=== PATIENT | female | born 1975 | race Caucasian/White ===

== ENCOUNTER → 2016-05-28 | Outpatient (REF) | payer OTHER | LOC: M LAB REF 19:37 | PROVIDERS: ATTEND Physician Assistant | DX: J02.9 Acute pharyngitis, unspecified (principal) ==

== ENCOUNTER → 2016-06-02 | Outpatient (CLI) | payer OTHER ==
--- NOTE | 2016-06-02 09:20 | REPMRS ---
Patient History The patient states she had a clinical breast exam in 05/2016. No known family history of cancer. Digital Woman Screen Mammo: June 02, 2016 - Exam #: [id number] Bilateral CC and MLO view(s) were taken. Technologist: Tori Diehl, Technologist Prior study comparison: May 17, 2015, digital woman screen mammo performed at [facility]. FINDINGS: The breast tissue is heterogeneously dense. This may lower the sensitivity of mammography. There has been no change in the appearance of the mammogram from the prior studies. There is a moderate amount of residual fibroglandular tissue which is fairly symmetric. There is no interval development of dominant mass, architectural distortion, or clustered microcalcification typical of malignancy. There are scattered, small, benign calcifications of doubtful clinical significance. Scattered lymph nodes are seen in the axillae. No significant changes when compared with prior studies. ASSESSMENT: BI-RADS/ACR category 2 mammogram. Benign finding(s). Recommendation Routine screening mammogram in 1 year (for women over age 40). This mammogram was interpreted with the aid of an FDA-approved computer-aided dectection system. A. Negative x-ray reports should not delay biopsy if a dominant or clinically suspicious mass is present. B. Four to eight percent of cancers are not identified by mammography. C. Adenosis and dense breast may obscure an underlying neoplasm. Electronically Signed By: Delbert Correa MD 06/02/16 5505
== END ==
LOC: M WHC 08:22
PROVIDERS: ATTEND Nurse Practitioner Women's Health
DX: Z12.31 Encounter for screening mammogram for malignant neoplasm of breast (principal)

== ENCOUNTER → 2017-01-29 | Outpatient (REF) | payer OTHER | LOC: M LAB REF 16:24 | PROVIDERS: ATTEND Obstetrics & Gynecology | DX: R39.89 Other symptoms and signs involving the genitourinary system (principal) ==

== ENCOUNTER → 2017-05-05 | Outpatient (REF) | payer OTHER | LOC: M LAB REF 13:47 | DX: J11.1 Influenza due to unidentified influenza virus with other respiratory manifestations (principal) ==

== ENCOUNTER → 2017-06-03 | Outpatient (CLI) | payer OTHER | LOC: M WHC 08:55 | DX: Z12.31 Encounter for screening mammogram for malignant neoplasm of breast (principal) ==

== ENCOUNTER → 2018-05-30 | Outpatient (CLI) | payer OTHER ==
[2018-06-01 10:00] LABS: HEPATITIS B SURFACE ANTIGEN NEGATIVE (NEGATIVE); HEPATITIS C VIRUS ABY INDEX < 0.0 INDEX (<0.8); HIV 1&2 SCREEN CENTAUR NEGATIVE (NEGATIVE)
== END ==
LOC: M WUC 14:53
PROVIDERS: ATTEND Nurse Practitioner Women's Health
DX: Z11.3 Encounter for screening for infections with a predominantly sexual mode of transmission (principal)

== ENCOUNTER → 2018-06-06 | Outpatient (CLI) | payer OTHER ==
--- NOTE | 2018-06-07 08:18 | REPMRS ---
Patient History The patient states she had a clinical breast exam in 05/2018. No known family history of cancer. Digital Woman Screen Mammo: June 06, 2018 - Exam #: [id number] Bilateral CC and MLO view(s) were taken. Technologist: Radha Triaan Technologist Prior study comparison: June 03, 2017, digital woman screen mammo performed at [facility]. June 02, 2016, digital woman screen mammo performed at [facility]. May 17, 2015, digital woman screen mammo performed at [facility]. FINDINGS: The breast tissue is heterogeneously dense. This may lower the sensitivity of mammography. There is a moderate amount of heterogeneously dense fibroglandular tissue which is fairly symmetric. There is no interval development of dominant mass, architectural distortion, or clustered microcalcification typical of malignancy. There has been no change in the appearance of the mammogram from the prior studies. 3-D tomosynthesis shows no additional findings. Assessment: BI-RADS/ACR category 1 mammogram. Negative Mammogram. Recommendation Routine screening mammogram of both breasts in 1 year (for women over age 40). This patient's Lifetime Breast Cancer RIsk is estimated at 13.2 %. This mammogram was interpreted with the aid of an FDA-approved computer-aided dectection system. Electronically Signed By: Raad Olivares MD 06/07/18 0818
== END ==
LOC: M WHC 09:22
PROVIDERS: ATTEND Nurse Practitioner Women's Health
DX: Z12.31 Encounter for screening mammogram for malignant neoplasm of breast (principal)

== ENCOUNTER → 2019-06-03 | Outpatient (REF) | payer OTHER | LOC: M LAB 10:57 | PROVIDERS: ATTEND Physician Assistant Medical | DX: J02.0 Streptococcal pharyngitis (principal) ==

== ENCOUNTER → 2019-06-22 | Outpatient (REF) | payer OTHER ==
[2019-06-22 17:53] LABS: ALBUMIN 3.5 GM/DL (3.2-5.2); ALT/SGPT 23 U/L (12-78); BILIRUBIN,TOTAL 0.2 MG/DL (0.2-1.0); BLOOD UREA NITROGEN 16 MG/DL (7-18); CALCIUM LEVEL 8.7 MG/DL (8.5-10.1); CARBON DIOXIDE LEVEL 27 MEQ/L (21-32); CHLORIDE LEVEL 112 MEQ/L (98-107); CREATININE FOR GFR 0.77 MG/DL (0.55-1.30); GLOMERULAR FILTRATION RATE > 60.0 (>58); GLUCOSE, FASTING 91 MG/DL (70-100); SODIUM LEVEL 143 MEQ/L (136-145); THYROID STIMULATING HORMONE 0.853 uIU/ML (0.358-3.740); TOTAL PROTEIN 6.8 GM/DL (6.4-8.2)
[2019-06-22 17:54] LABS: LUTEINIZING HORMONE 13.1 mIU/mL
[2019-06-22 17:55] LABS: FOLLICLE STIMULATING HORMONE 14.1 mIU/mL
== END ==
LOC: M SFHCPLAZ 14:21
PROVIDERS: ATTEND Nurse Practitioner Adult Health
DX: Z00.00 Encounter for general adult medical examination without abnormal findings (principal); N95.1 Menopausal and female climacteric states

== ENCOUNTER → 2019-06-27 | Outpatient (CLI) | payer OTHER ==
--- NOTE | 2019-06-27 09:25 | REPMRS ---
Patient History The patient states she had a clinical breast exam in 2019. No known family history of cancer. 3D TOMOSYNTHESIS WAS PERFORMED. [facility] lifetime risk for breast cancer is 13.0%. Digital Woman Screen Mammo: June 27, 2019 - Exam #: [id number] Bilateral CC and MLO view(s) were taken. Technologist: Carola Lacy, Technologist Prior study comparison: June 06, 2018, bilateral digital woman screen mammo performed at [facility] [place]. June 03, 2017, digital woman screen mammo performed at [facility] [place]. FINDINGS: The breast tissue is heterogeneously dense. This may lower the sensitivity of mammography. There has been no change in the appearance of the mammogram from the prior studies. There is a moderate amount of residual fibroglandular tissue which is fairly symmetric. There is no interval development of dominant mass, areas of architectural distortion, or clustered microcalcification typical of malignancy. Assessment: BI-RADS/ACR category 1 mammogram. Negative Mammogram. Recommendation Routine screening mammogram in 1 year (for women over age 40). This mammogram was interpreted with the aid of an FDA-approved computer-aided dectection system. Electronically Signed By: Raz Tatum MD 06/27/19 0906
== END ==
LOC: M WHC 08:21
PROVIDERS: ATTEND Nurse Practitioner Women's Health
DX: Z12.31 Encounter for screening mammogram for malignant neoplasm of breast (principal)

== ENCOUNTER → 2020-01-11 | Outpatient (REF) | payer OTHER | LOC: M LAB REF 12:26 | PROVIDERS: ATTEND Physician Assistant | DX: J02.9 Acute pharyngitis, unspecified (principal) ==

== ENCOUNTER → 2020-02-19 | Outpatient (REF) | payer OTHER | LOC: M LAB REF 10:29 | PROVIDERS: ATTEND Physician Assistant Medical | DX: R05 Cough (principal); R50.9 Fever, unspecified ==

== ENCOUNTER → 2020-02-22 | Outpatient (REF) | payer OTHER ==
[2020-02-22 15:51] LABS: BASO # 0.1 10^3/uL (0.0-0.2); BASO % 0.8 % (0.0-1.0); EOS # 0.2 10^3/uL (0.0-0.5); EOS % 1.4 % (0.0-3.0); HEMATOCRIT 34.8 % (36.0-47.0); LYMPH # 2.3 10^3/uL (1.5-5.0); LYMPH % 18.5 % (24.0-44.0); MEAN CORPUSCULAR HEMOGLOBIN 29.8 pg (27.0-33.0); MEAN CORPUSCULAR HGB CONC 31.6 g/dl (32.0-36.5); MEAN CORPUSCULAR VOLUME 94.3 fl (80.0-96.0); MONO # 0.9 10^3/uL (0.0-0.8); MONO % 6.8 % (0.0-5.0); NEUTROPHILS # 8.6 10^3/uL (1.5-8.5); NEUTROPHILS % 68.8 % (36.0-66.0); PLATELET COUNT, AUTOMATED 340 10^3/uL (150-450); RED BLOOD COUNT 3.69 10^6/uL (4.00-5.40); WHITE BLOOD COUNT 12.5 10^3/uL (4.0-10.0)
[2020-02-22 15:54] LABS: ALBUMIN 2.8 GM/DL (3.2-5.2); ALT/SGPT 36 U/L (12-78); BILIRUBIN,TOTAL 0.3 MG/DL (0.2-1.0); BLOOD UREA NITROGEN 14 MG/DL (7-18); CALCIUM LEVEL 8.8 MG/DL (8.5-10.1); CARBON DIOXIDE LEVEL 25 MEQ/L (21-32); CHLORIDE LEVEL 110 MEQ/L (98-107); CREATININE FOR GFR 0.64 MG/DL (0.55-1.30); GLOMERULAR FILTRATION RATE > 60.0 (>58); GLUCOSE, FASTING 102 MG/DL (70-100); POTASSIUM SERUM 4.4 MEQ/L (3.5-5.1); SODIUM LEVEL 142 MEQ/L (136-145)
[2020-02-22 17:00] LABS: ERYTHROCYTE SEDIMENTATION RATE 65 mm/hr (0-20)
[2020-02-24 14:11] LABS: Lyme Disease IgG/IgM Antibodie <0.91 ISR (0.00-0.90); Lyme Disease IgM Ab Quantitati <0.80 index (0.00-0.79)
== END ==
LOC: M SFHCPLAZ 12:37
PROVIDERS: ATTEND Physician Assistant
DX: R50.9 Fever, unspecified (principal); R51.9 Headache, unspecified

== ENCOUNTER → 2020-03-06 | Outpatient (REF) | payer OTHER ==
[2020-03-06 13:39] LABS: BASO # 0.1 10^3/uL (0.0-0.2); BASO % 0.9 % (0.0-1.0); EOS # 0.3 10^3/uL (0.0-0.5); EOS % 5.9 % (0.0-3.0); HEMATOCRIT 40.3 % (36.0-47.0); HEMOGLOBIN 12.5 g/dl (12.0-15.5); LYMPH # 1.9 10^3/uL (1.5-5.0); LYMPH % 32.5 % (24.0-44.0); MEAN CORPUSCULAR HEMOGLOBIN 29.9 pg (27.0-33.0); MEAN CORPUSCULAR VOLUME 96.4 fl (80.0-96.0); MONO # 0.4 10^3/uL (0.0-0.8); MONO % 6.8 % (0.0-5.0); NEUTROPHILS # 3.1 10^3/uL (1.5-8.5); NEUTROPHILS % 53.4 % (36.0-66.0); PLATELET COUNT, AUTOMATED 450 10^3/uL (150-450); RED BLOOD COUNT 4.18 10^6/uL (4.00-5.40); WHITE BLOOD COUNT 5.7 10^3/uL (4.0-10.0)
[2020-03-06 13:52] LABS: APPEARANCE, URINE CLEAR (CLEAR); BACTERIA, URINE AUTO NEGATIVE (NEGATIVE); BILIRUBIN, URINE AUTO NEGATIVE (NEGATIVE); BLOOD, URINE BLOOD NEGATIVE (NEGATIVE); COLOR, URINE YELLOW (YELLOW); GLUCOSE, URINE (UA) AUTO NEGATIVE (NEGATIVE); KETONE, URINE AUTO NEGATIVE (NEGATIVE); LEUKOCYTE ESTERASE, URINE AUTO NEGATIVE (NEGATIVE); MUCUS, URINE SMALL (NEGATIVE); NITRITE, URINE AUTO NEGATIVE (NEGATIVE); PROTEIN, URINE AUTO NEGATIVE (NEGATIVE); RBC, URINE AUTO 1 /HPF (0-3); SPECIFIC GRAVITY URINE AUTO 1.013 (1.002-1.035); SQUAMOUS EPITHELIAL CELL UR AU 2 /HPF (0-6); UROBILINOGEN, URINE AUTO 0.2 mg/dL (0.0-2.0); WBC, URINE AUTO 0 /HPF (0-3)
[2020-03-06 14:06] LABS: ERYTHROCYTE SEDIMENTATION RATE 7 mm/hr (0-20)
[2020-03-06 14:12] LABS: ALBUMIN 3.5 GM/DL (3.2-5.2); ALT/SGPT 15 U/L (12-78); BILIRUBIN,TOTAL 0.4 MG/DL (0.2-1.0); BLOOD UREA NITROGEN 18 MG/DL (7-18); CARBON DIOXIDE LEVEL 27 MEQ/L (21-32); CHLORIDE LEVEL 110 MEQ/L (98-107); CREATININE FOR GFR 0.84 MG/DL (0.55-1.30); GLOMERULAR FILTRATION RATE > 60.0 (>58); GLUCOSE, FASTING 90 MG/DL (70-100); POTASSIUM SERUM 4.9 MEQ/L (3.5-5.1); SODIUM LEVEL 140 MEQ/L (136-145)
== END ==
LOC: M SFHCPLAZ 09:57
PROVIDERS: ATTEND Physician Assistant
DX: R89.9 Unspecified abnormal finding in specimens from other organs, systems and tissues (principal); N30.01 Acute cystitis with hematuria

== ENCOUNTER → 2020-03-06 | Outpatient (CLI) | payer OTHER ==
--- NOTE | 2020-03-06 10:23 | REPPI ---
INDICATION: M54.5 ACUTE BILATERL LOW BACK PAIN WITHOUT SCIATICA COMPARISON: None. TECHNIQUE: AP, lateral, bilateral oblique, and coned-down views of the lumbar spine. FINDINGS: Alignment and lordosis maintained. Vertebral bodies are intact. Disc spaces are relatively normal/age-appropriate. No acute fracture/compression injury or subluxation. No obvious spondylolysis or spondylolisthesis. IMPRESSION: Essentially age-appropriate lumbosacral spine radiographs. <Electronically signed by Ziggy Medrano > 03/06/20 9772
== END ==
LOC: M PLAIMG 09:55
PROVIDERS: ATTEND Physician Assistant
DX: M54.5 Low back pain (principal)

== ENCOUNTER → 2020-04-16 | Outpatient (REF) | payer OTHER | LOC: M SFHCPLAZ 17:00 | PROVIDERS: ATTEND Physician Assistant | DX: J34.89 Other specified disorders of nose and nasal sinuses (principal); Z20.822 Contact with and (suspected) exposure to COVID-19 ==

== ENCOUNTER → 2020-06-27 | Outpatient (CLI) | payer OTHER | LOC: M WHC 07:53 | PROVIDERS: ATTEND Obstetrics & Gynecology | DX: Z12.31 Encounter for screening mammogram for malignant neoplasm of breast (principal); Z53.9 Procedure and treatment not carried out, unspecified reason ==

== ENCOUNTER → 2020-09-20 | Outpatient (CLI) | payer OTHER ==
--- NOTE | 2020-09-20 08:48 | REPMRS ---
Patient History The patient states she had a clinical breast exam in May 2020. No known family history of cancer. 35 LB. unintentional weight gain. Pfizer vaccine 06/19/20 left arm 07/10/20 left arm. Pt denied . Patient states no breast complaints today. Patient has signed MRS History Sheet. Digital Woman Screen Mammo: September 20, 2020 - Exam #: [id number] Bilateral CC and MLO view(s) were taken. Technologist: RT Dorys Prior study comparison: June 27, 2019, bilateral digital woman screen mammo performed at [facility]. June 06, 2018, bilateral digital woman screen mammo performed at [facility]. FINDINGS: There are scattered fibroglandular densities. Screening. Digital screening (2D) mammography was performed bilaterally in the CC and MLO projections. Additionally, breast tomosynthesis (3D mammography) was performed bilaterally in the CC and MLO projections. Todays exam was compared to the prior exam/exams. By history, the patient has no complaints of a palpable breast abnormality or other significant breast complaints. The breasts are unchanged in size and shape. There are no allegra-soft tissue densities or spiculated masses. There is no internal architectural distortion. Once again, stable benign appearing calcifications are seen.There are no suspicious allegra-calcific clusters. Skin thickening or nipple retraction is not present. IMPRESSION: BI-RADS Category 2- Benign Findings. There is no evidence of malignant alteration of the breasts. Followup examination recommended in one year. The Volpara volumetric breast density category is B, there are scattered areas of fibroglandular density. This mammogram was read with the assistance of [facility] [employer],an FDA approved computer aided detection system for mammography. The lifetime Tyrer-Cuzick score is 12.9 % Negative x-ray reports should not delay surgical consultation if a dominant or clinically suspicious mass is present. Not all breast cancers can be identified by mammography. Therefore, we recommend that you continue to perform regular breast self-examination and physical examination and then promptly contact your physician of any concerns or changes. Adenosis and dense breasts may obscure an underlying neoplasm. Assessment: BI-RADS/ACR category 2 mammogram. Benign Findings. Recommendation Routine screening mammogram of both breasts in 1 year. Electronically Signed By: Raul Sepulveda 09/20/20 0899
== END ==
LOC: M WHC 06:59
PROVIDERS: ATTEND Obstetrics & Gynecology
DX: Z12.31 Encounter for screening mammogram for malignant neoplasm of breast (principal); R92.1 Mammographic calcification found on diagnostic imaging of breast

== ENCOUNTER → 2021-01-11 | Outpatient (CLI) | payer OTHER ==
[~2021-01-11] MED LIST: ASPI81TA26 PO; CYCL-707 PO; D31000TA2 PO; LEXA1TAB PO; MAXA10TA14 PO; NORT10CA2 PO
== END ==
LOC: M LABSMTC 09:29
PROVIDERS: ATTEND Anesthesiology
DX: Z20.822 Contact with and (suspected) exposure to COVID-19 (principal)

== ENCOUNTER 2021-01-16 10:16 | Day surgery (SDC) | payer OTHER ==
[~2021-01-16] VITALS: Ht 162.6 cm; Wt 94.8 kg
[~2021-01-16 10:16] MED LIST changes: +NS 1,000 ML IV ONE
[2021-01-16] MEDS ORDERED: propofoL 200 MG/20 ML VIAL As Ordered ONE (11:44)
[2021-01-16] MEDS ORDERED: LIDOCAINE 2% MDV 20ML VIAL As Ordered ONE (11:44)
--- NOTE | 2021-01-16 13:11 | ROOR ---
Patient Name: Caroline Amezcua Procedure Date: 01/16/2021 12:35 PM Date of : 1975 Age: 45 Room: [facility] Gender: Female Note Status: Finalized Procedure: Colonoscopy Indications: Screening in patient at increased risk: Family history of 1st-degree relative with colorectal cancer before age 60 years Providers: Jayden Segal MD Referring MD: Beata Jones NP Requesting Provider: Medicines: Monitored Anesthesia Care Complications: No immediate complications. Procedure: Pre-Anesthesia Assessment: - Prior to the procedure, a History and Physical was performed, and patient medications and allergies were reviewed. The patient is competent. The risks and benefits of the procedure and the sedation options and risks were discussed with the patient. All questions were answered and informed consent was obtained. Patient identification and proposed procedure were verified by the physician, the nurse and the anesthesiologist in the procedure room. Mental Status Examination: alert and oriented. Airway Examination: normal oropharyngeal airway and neck mobility. Respiratory Examination: clear to auscultation. CV Examination: normal. Prophylactic Antibiotics: The patient does not require prophylactic antibiotics. Prior Anticoagulants: The patient has taken no previous anticoagulant or antiplatelet agents. ASA Grade Assessment: II - A patient with mild systemic disease. After reviewing the risks and benefits, the patient was deemed in satisfactory condition to undergo the procedure. The anesthesia plan was to use monitored anesthesia care (MAC). Immediately prior to administration of medications, the patient was re-assessed for adequacy to receive sedatives. The heart rate, respiratory rate, oxygen saturations, blood pressure, adequacy of pulmonary ventilation, and response to care were monitored throughout the procedure. The physical status of the patient was re-assessed after the procedure. The Colonoscope was introduced through the anus and advanced to the cecum, identified by appendiceal orifice and ileocecal valve. The colonoscopy was performed without difficulty. The patient tolerated the procedure well. The quality of the bowel preparation was poor and not adequate to identify polyps 6 mm and larger in size. The ileocecal valve, appendiceal orifice, and rectum were photographed. Scope insertion time was 2 minutes. Scope withdrawal time was 10 minutes. The total duration of the procedure was 12 minutes. Findings: The perianal and digital rectal examinations were normal. A 10 mm polyp was found in the rectum. The polyp was sessile. The polyp was removed with a hot biopsy forceps. The polyp was removed with a cold snare. Resection and retrieval were complete. Verification of patient identification for the specimen was done by the physician and nurse using the patient's name, date and medical record number. Estimated blood loss was minimal. A large amount of semi-liquid semi-solid stool was found from sigmoid to cecum, interfering with visualization. Lavage of the area was performed using a large amount of sterile water, resulting in incomplete clearance with continued poor visualization. Non-bleeding external and internal hemorrhoids were found during retroflexion. The hemorrhoids were medium-sized. Impression: - Preparation of the colon was poor. - Preparation of the colon was inadequate. - One 10 mm polyp in the rectum, removed with a hot biopsy forceps and removed with a cold snare. Resected and retrieved. - Stool from sigmoid to cecum. - Non-bleeding external and internal hemorrhoids. Recommendation: - Patient has a contact number available for emergencies. The signs and symptoms of potential delayed complications were discussed with the patient. Return to normal activities tomorrow. Written discharge instructions were provided to the patient. - High fiber diet. - Continue present medications. - Await pathology results. - Repeat colonoscopy at next available appointment (within 3 months) because the bowel preparation was poor and for surveillance based on pathology results. - Telephone GI clinic to schedule appointment in [facility] (address: [address] [place] [address], 1st floor, [place], [place],[address]) in 4 -- 6 weeks. Please call GI clinic @ [phone] for apppointment date and time. - Miralax 1 capful (17 grams) in 8 ounces of water PO daily for atleast 7 days and then adjust dose to have one to two soft bowel movements daily. - Return to primary care physician. Procedure Code(s): --- Professional --- 54307, Colonoscopy, flexible; with removal of tumor(s), polyp(s), or other lesion(s) by snare technique Diagnosis Code(s): --- Professional --- Z80.0, Family history of malignant neoplasm of digestive organs K64.8, Other hemorrhoids K62.1, Rectal polyp CPT copyright 2019 [employer]. All rights reserved. The codes documented in this report are preliminary and upon roof cement and paint maker review may be revised to meet current compliance requirements. Jayden Segal MD Jayden Segal MD 01/16/2021 1:11:09 PM Electronically signed by Jayden Segal MD Number of Addenda: 0 Note Initiated On: 01/16/2021 12:35 PM Estimated Blood Loss: Estimated blood loss was minimal.
[2021-01-16 13:25] VITALS: BP 127/72
== END 2021-01-16 13:36 | disposition home or self-care (01) ==
LOC: M OPP 10:16
PROVIDERS: ATTEND Internal Medicine Gastroenterology
DX: Z12.11 Encounter for screening for malignant neoplasm of colon (principal); Z86.010 Personal history of colon polyps; Z80.0 Family history of malignant neoplasm of digestive organs; D12.8 Benign neoplasm of rectum; K64.8 Other hemorrhoids; Z79.82 Long term (current) use of aspirin; Z79.899 Other long term (current) drug therapy; Z88.8 Allergy status to other drugs, medicaments and biological substances; Z86.718 Personal history of other venous thrombosis and embolism

== ENCOUNTER 2021-02-21 11:32 | Emergency (ER) | payer OTHER ==
[~2021-02-21] VITALS: Ht 162.6 cm; Wt 98.8 kg
[~2021-02-21 11:32] MED LIST changes: -NS 1,000 ML IV ONE
--- OUTSIDE RECORDS SUMMARY | 2021-02-21 11:40 | CCD | Continuity of Care Document ---
Author Author Caroline FL[facility]ES [facility] Organization Unknown Address [address] [place] [address], [address] [place] [address] Phone [phone] Care Team Providers Care Political Analyst Name Role Phone Beata Jones R.N. AUTM [phone] AUTM Unavailable Singh Ty M.D. AUTM [phone] Problems Active Problems Provider Date Allergic asthma without status asthmaticus Singh Ty MD Onset: 01/21/2021 Left temporomandibular joint disorder Singh Ty MD On set: 01/22/2021 Social History Type Date Description Comments Sex Unknown ETOH Use 4 A Week Tobacco Use Start: Unknown Patient has never smoked Recreational Drug Use Never Used Drugs Allergies and adverse reactions Active Allergies Criticality Reaction | Severity Comments Date Naprosyn Unable to assess criticality 11/29/2020 Medications Active Medications SIG Qnty Indications Ordering Provide r Date Miralax 17GM/Scoop Powder use as instructed by doctor for bowel prep 510gm Z12.11 Singh Gates MD 02/14/[address] take 4 tabs by mouth prior to procedure per instructions. 4tabs Z12.11 Singh Gates MD 02/14/2021 Vitamin D 50mcg (2000 Ut) Tablets 1 by mouth every day Unknown Nortriptyline HCL 10mg Capsules 1 by mouth every other day Unknown Lexapro 10mg Tablets 1 by mouth every day Unknown Aspirin Ec Low Dose 81mg Tablets D R 1 by mouth every day Unknown Cyclobenzaprine HCL 10mg Tablets 1 by mouth every other day 30tabs Unknown Maxalt 10mg Tablets prn Unknown Miralax 17GM/Scoop Powder take 17 grams by mouth once daily. Unknown History Medications Sutab [id number] Tablets take tablets as directed per doctor for bowel prep. 1kit Z12.11 Singh myrick MD 12/03/2020 - 12/23/[address] take 4 tabs by mouth prior to procedure per instructions. 4tabs Z12.11 Singh Gates MD 12/03/2020 - 12/23/2020 Immunizations Description No Information Available Vital Signs Date Vital Result Comment 02/14/2021 12:41pm BP Systolic 140 mmHg BP Diastolic 84 mmHg Height 64 inches 5'4" Weight 215.00 lb BMI (Body Mass Index) 36.9 kg/m2 [place] Body Weight 120 lb Weight 97.524 kg BSA (Body Surface Area) 2.02 m2 01/22/2021 2:50pm BP Systolic 122 mmHg BP Diastolic 70 mmHg Heart Rate 82 /min O2 % BldC Oximetry 98 % Height 64 inches 5'4" Weight 214.00 lb BMI (Body Mass Index) 36.7 kg/m2 [place] Body Weight 120 lb Weight 97.070 kg BSA (Body Surface Area) 2.01 m2 Results Test Acquired Date Facility Test Result H/L Range Note Laboratory test finding 01/16/2021 [facility] [address] [place], [place] [id number] [phone] Pathology Request For Service (SEE NOTE) 1 1 FINAL DIAGNOSIS Rectal polyp, polypectomy: Tubular adenoma. 01/17/2021 - 1458 CLINICAL DIAGNOSIS Screening colonoscopy, family history of colon cancer 01/16/2021 - 154 GROSS DIAGNOSIS Received in formalin labeled "rectal polyp" consists of one malagon fragment measuring 0.4 x 0.3 x 0.2 cm. All in one. -SV 01/16/2021 - 154 Signed YUAN DE JESUS MD 01/17/2021 1525 Procedures Date Code Description Status 01/22/2021 24394 Office/Outpatient New Moderate M DM 45-59 Minutes Completed Medical Devices Description No Information Available Encounters Description No Information Available Assessments Date Code Description Provider 02/14/2021 Z12.11 Encounter for screening for patience gnant neoplasm of colon Jennifer FloresJOSE FC 02/14/2021 Z86.010 Personal history of colonic poly ps Jennifer FloresJOSE FC 02/14/2021 Z80.0 Family history of malignant neop lasm of digestive organs Jennifer FloresJOSE FC 01/22/2021 M26.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, unspecified Singh Ty MD 12/03/2020 Z12.11 Encounter for screening for patience gnant neoplasm of colon Jennifer FloresLAKEISHA 12/03/2020 Z80.0 Family history of malignant neop lasm of digestive organs Jennifer FloresLAKEISHA Plan of Treatment 02/14/2021 - Jennifer FloresLAKEISHA* Z12.11 Encounter for screening for malignant neoplasm of colon * Z86.010 Personal history of colonic polyps * Z80.0 Family history of malignant neoplasm of digestive organs * * New Medication:* Miralax 17 GM/Scoop * Dulcolax 5 mg * New Orders:* Colonoscopy, Ordered: 02/14/21 * Comments:* Will arrange for colonoscopy. Reviewed risks and benefits of the procedure, as well as other options, with the patient. Bowel prep procedure was discussed with patient, as well as risks and side effects associated with the bowel prep. Patient will complete the Miralax 2.0 bowel prep. Patient verbalized understanding of all of the above and is in agreement to proceed. Patient will seek medical attention for any acute changes. Will monitor. * Follow up:* As scheduled, sooner if needed. Functional Status Description No Information Available Mental Status Description No Information Available Referrals Refer to Reason for Referral Status Appt Date [facility] Rehab TMJ therapy Sent PT/OT/Rehab [address] [place], [place] [id number] [phone] Singh Ty M.D. left ear pain and TMJ inflammation Close d 01/22/2021 [address] [facility] [address] [place] [address] [phone] Jayden Segal M.D. COLO SCREEN, FAMILY HX OF COLO CA S cheduled 12/24/2020 [facility] [address] [facility], [address] [place] [address] [phone]
--- OUTSIDE RECORDS SUMMARY | 2021-02-21 11:41 | CCD | Continuity of Care Document ---
Author Author Caroline TY MD Organization Unknown Address [address] [facility], [address] [place] [address] Phone [phone] Care Team Providers Care Compounding And Finishing Supervisor Name Role Phone Beata Jones R.N. AUTM [phone] AUTM Unavailable Singh Ty M.D. AUTM [phone] Problems Active Problems Provider Date Allergic asthma [...] SIG Qnty Indications Ordering Provide r Date Vitamin D 50mcg (1999 Ut) Tablets 1 by mouth every day Unknown Nortriptyline HCL 10mg Capsules 1 by mouth every other day Unknown Lexapro 10mg Tablets 1 by mouth every day Unknown Aspirin Ec Low Dose 81mg Tablets D R 1 by mouth every day Unknown Cyclobenzaprine HCL 10mg Tablets 1 by mouth every day 30tabs Unknown Maxalt 10mg Tablets prn Unknown History Medications Sutab [id number] Tablets take tablets as directed per doctor for bowel prep. 1kit Z12.11 Singh myrick MD 12/03/2020 - 12/23/[address] take 4 tabs by mouth prior to procedure per instructions. 4tabs Z12.11 Singh Gates MD 12/03/2020 - 12/23/2020 Immunizations Description No Information Available Vital Signs Date Vital Result Comment 01/22/2021 2:50pm BP Systolic 122 mmHg BP Diastolic 70 mmHg Heart Rate 82 /min O2 % BldC Oximetry 98 % Height 64 inches 5'4" Weight 214.00 lb BMI (Body Mass Index) 36.7 kg/m2 [place] Body Weight 120 lb Weight 97.070 kg BSA (Body Surface Area) 2.01 m2 12/03/2020 11:22am BP Systolic 124 mmHg BP Diastolic 84 mmHg Height 64 inches 5'4" Weight 202.00 lb BMI (Body Mass Index) 34.7 kg/m2 [place] Body Weight 120 lb Weight 91.627 kg BSA (Body Surface Area) 1.96 m2 Results Test Acquired Date Facility Test Result H/L Range Note Laboratory test finding 01/16/2021 [facility] [address] [place], [place] [address] [phone] Pathology Request For Service (SEE NOTE) 1 1 FINAL DIAGNOSIS Rectal polyp, polypectomy: Tubular adenoma. 01/17/2021 - 1458 CLINICAL DIAGNOSIS Screening colonoscopy, family history of colon cancer 01/16/2021 - 1540 GROSS DIAGNOSIS Received in formalin labeled "rectal polyp" consists of one malagon fragment measuring 0.4 x 0.3 x 0.2 cm. All in one. -SV 01/16/2021 - 1540 Signed YUAN DE JESUS MD 01/17/2021 1525 Procedures Date Code Description Status 01/22/2021 10430 Office/Outpatient New Moderate M DM 45-59 Minutes Completed Medical Devices Description No Information Available Encounters Type Date Location Provider Dx Diagnosis Office Visit 01/22/2021 2:45p [facility] Ruben Olivier M26.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, unspecified Assessments Date Code Description Provider 01/22/2021 M26.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, unspecified Singh Ty MD 12/03/2020 Z12.11 Encounter for screening for patience gnant neoplasm of colon Jennifer Brooks, RPA-C 12/03/2020 Z80.0 Family history of malignant neop lasm of digestive organs LAKEISHA Ortiz Plan of Treatment Future Appointment(s):* 02/11/2021 3:30 pm - LAKEISHA Ortiz at [facility] Functional Status Description No Information Available Mental Status Description No Information Available Referrals Refer to Reason for Referral Status Appt Date [facility] Rehab TMJ therapy Created PT/OT/Rehab [address] [place] [address] [phone] Singh Ty M.D. left ear pain and TMJ inflammation Sched uled 01/22/[address] [facility] [address] [place] [address] [phone] Jayden Segal M.D. COLO SCREEN, FAMILY HX OF COLO CA S cheduled 12/24/2020 [facility] [address] [facility] [address] [place] [address] [phone]
--- OUTSIDE RECORDS SUMMARY | 2021-02-21 11:41 | CCD | Continuity of Care Document ---
Author Author Caroline TY MD Organization Unknown Address [address] [facility], [address] [place] [address] Phone [phone] Care Team Providers Care Animated Cartoons Painter Name Role Phone Beata Jones R.N. AUTM [phone] AUTM Unavailable Singh Ty M.D. AUTM [phone] Problems Active Problems Provider Date Allergic asthma [...] 10mg Tablets prn Unknown History Medications Sutab [phone] Tablets take tablets as directed per doctor [...] lb BMI (Body Mass Index) 36.7 kg/m2 [place] Body Weight 120 lb Weight 97.070 kg BSA (Body Surface Area) 2.01 m2 12/03/2020 11:22am BP Systolic 124 mmHg BP Diastolic 84 mmHg Height 64 inches 5'4" Weight 202.00 lb BMI (Body Mass Index) 34.7 kg/m2 [place] Body Weight 120 lb Weight 91.627 kg BSA (Body Surface Area) 1.96 m2 Results Test Acquired Date Facility Test Result H/L Range Note Laboratory test finding 01/16/2021 [facility] Main Lab [address] [place], [place] [address] [phone] Pathology Request For Service (SEE NOTE) 1 [...] 1525 Procedures Date Code Description Status 01/22/2021 63281 Office/Outpatient New Moderate M DM 45-59 Minutes Completed Medical Devices Description No Information Available Encounters Type Date Location Provider Dx Diagnosis Office Visit 01/22/2021 2:45p [facility] Ruben Olivier M26.602 Left temporomandibular [...] 02/11/2021 3:30 pm - LAKEISHA Ortiz at [facility] Functional Status Description No Information Available Mental Status Description No Information Available Referrals Refer to Reason for Referral Status Appt Date [facility] Rehab TMJ therapy Created PT/OT/Rehab [address] [place] [address] [phone] Singh Ty M.D. left ear pain and TMJ inflammation Sched uled 01/22/2021 [address] [facility] [address] [place] [address] [phone] Jayden Segal M.D. COLO SCREEN, FAMILY HX OF COLO CA S cheduled 12/24/2020 [facility] [address] [facility], [facility] [address] [place] [address] [phone]
--- OUTSIDE RECORDS SUMMARY | 2021-02-21 11:41 | CCD ---
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 A ctive confirmed 2714878 Problem Hx of migraine headaches Z86.69 Active confirmed 156857341 Problem Uncomplicated asthma, unspecified asthma severity J45.909 Active confirmed 767804299 Problem Perimenopause N95.1 Active confirmed 533649 159787347 Problem BMI 29.0-29.9,adult Z68.29 Active confirmed 443009970 Problem Anxiety F41.9 Active confirmed 40728266 Problem History of DVT (deep vein thrombosis) Z86.718 Ac tive confirmed 155126873 Problem Sciatica of left side M54.32 Active confirmed 54386355 Problem BMI 35.0-35.9,adult Z68.35 Active confirmed 835319285 Problem Anxiety disorder, unspecified F41.9 Active confirm ed 206483073 Problem Abnormal laboratory test R89.9 Active confirmed 569159946 Problem Abnormal laboratory test result R89.9 Active confi rmed 750469837 Problem Depression, unspecified depression type F32.9 Active confirmed 79615446 ALLERGIES Allergen (clinical drug ingredient) Drug/Non Drug Allergy do cumented on EMR Reaction Allergy Type Onset Date Status naproxen Naprosyn([facility] Code:[address]-73) itchy, red blisters Drug Allergy Active ENCOUNTERS from 1974 to 2021-02-06 Encounter Location Date Provider Diagnosis [facility] Cory [address] [facility] [phone] [place] [address] Jan, Beata Jones Sciatica of left side M54.32 IMMUNIZATIONS Vaccine Route Administration Date Status Pfizer #2 dose COVID-19 (given elsewhere) SARSCOV2 VAC 30MCG /0.3ML IM Unknown July 10, 2020 Administered Pfizer #1 dose COVID-19 (given elsewhere) SARSCOV2 VAC 30MCG /0.3ML IM Unknown June 19, 2020 Administered SOCIAL HISTORY Tobacco Use: Social History Observation Description Date Details (start date - stop date) Former Smoker Sex Assigned At : Social History Observation Description Sex Assigned At Unknown Education: Question Answer Notes Level of Education: Finished 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 2003 Does the patient divulge that the partner hit them? No Does the patient divulge that the partner hits the chi ldren in the household? No Does the patient consider the partner abusive? No Has the patient ever been in a situation involving domestic violence? No Has the patietn ever been injured, homeb ound, or hospitalized due to an altercation with significant other? No Sexual Hx: Question Answer Notes Had sex in the last 12 months (vaginal, oral, or anal)? Yes LMP: ablation Have you ever had an STD? No with Men only Use protection? No Drug and Alcohol Question Answer Notes Total Score: 0 Interpretation: No problems reported Alcohol Screening: Question Answer Notes Points 0 Interpretation Negative Tobacco Use: Question Answer Notes Are you a: former smoker only smoked for 18 m [facility] How long has it been since you last smoked? > 10 years REASON FOR REFERRAL No Information VITAL SIGNS No information MEDICATIONS Medication SIG (Take, Route, Frequency, Duration) Notes Start Da te End Date Status Nortriptyline HCl 10 MG 1 capsule Orally every other day Active Vitamin D-3 1000 UNIT 2 capsules Orally Once a day Active Aspir-81 81 MG 1 1/2 tablet Orally Once a day Active Cyclobenzaprine HCl 10 MG 1 tablet Orally Q8 prn for 30 days Active Diflucan 150 MG 1 tablet Orallyas directed 1 today and 1 in 10 days for 2 days Dec, Active Ciprofloxacin-Dexamethasone 0.3-0.1 % 4 drops into lef t ear Otic Twice a day for 7 day(s) Dec, Active Ibuprofen 800 MG 1 tablet with food or milk a s needed Orally Three times a day for 10 day(s) Jan, Active Topiramate ER 200 MG 1 capsule Orally Once a day Active Lexapro 10 MG 1 tablet Orally Once a day for 90 days Active predniSONE 10 MG 3 tablets Orally Once a day for 5 day(s) Dec, Active Amoxicillin 250 MG 1 cap Orally four times daily for 10 days Dec, Active PROCEDURES No Information RESULTS No Results REASON FOR VISIT refill MEDICAL (GENERAL) HISTORY Type Description Date Medical History vitamin d deficiency Medical History DVT-Left leg 11/01/11 Medical History Single mutation [id number] Factor V Leiden ( increases risk of DVT 4- 8 fold) while on oral contraceptives Medical History asthma PFT's 07/02/05 Medical History Chronic tension and migraine headache Medical History Legally blind, congential ca taracts,cataract surgery young age, history of macular dystrophy of the eyes with lens implanted Medical History echocardiogram 12/05/08-[facility] Center-trace mitral valve insuffiency, LVEF 60-65 % Surgical History 2007 Surgical History laproscopy 2009 Surgical History ablasion 2012 Surgical History diagnostic hysteroscopy 2008 Surgical History YAG laser 1992 & 1994 Surgical History D & C hysteroscopy,NovaSure ablation 201 5 Hospitalization History vaginal delivery baby boy 02/01/2005 Hospitalization History delivery baby boy 11/16/19 08 Goals Section No Information Health Concerns No Information MEDICAL EQUIPMENT No Information MENTAL STATUS No Information FUNCTIONAL STATUS No Information ASSESSMENTS Encounter Date Diagnosis Assessment Notes Treatment Notes Treatm ent Clinical Notes Jan, Sciatica of left side (ICD-10 - M54.32) PLAN OF TREATMENT Medication Medication Name Sig Start Date Stop Date Cyclobenzaprine HCl 10 MG 1 tablet Orally Q8 prn for 30 days Next Appt Details Provider Name:Beata Jones, 08:00:00 AM, [address] [facility], , [place], [address], Insurance Providers Payer Name Payer Address Payer Phone Insured Name Patient Relati onship to Insured Coverage Start Date Coverage End Date [facility] [address] [address] [facility] [phone] RUMA AMEZCUA self
--- OUTSIDE RECORDS SUMMARY | 2021-02-21 11:41 | CCD ---
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 A ctive confirmed 7566170 Problem Hx of migraine headaches Z86.69 Active confirmed 159727243 Problem Uncomplicated asthma, unspecified asthma severity J45.909 Active confirmed 168806350 Problem Perimenopause N95.1 Active confirmed 812541 728592754 Problem BMI 29.0-29.9,adult Z68.29 Active confirmed 034535159 Problem Anxiety F41.9 Active confirmed 55262016 Problem History of DVT (deep vein thrombosis) Z86.718 Ac tive confirmed 315443290 Problem Sciatica of left side M54.32 Active confirmed 98321002 Problem BMI 35.0-35.9,adult Z68.35 Active confirmed 355361932 Problem Anxiety disorder, unspecified F41.9 Active confirm ed 549321384 Problem Abnormal laboratory test R89.9 Active confirmed 951686489 Problem Abnormal laboratory test result R89.9 Active confi rmed 223573479 Problem Depression, unspecified depression type F32.9 Active confirmed 78568603 ALLERGIES Allergen (clinical drug ingredient) Drug/Non Drug Allergy do cumented on EMR Reaction Allergy Type Onset Date Status naproxen Naprosyn([facility] Code:[address]-40) itchy, red blisters Drug Allergy Active ENCOUNTERS from 1974 to 2020-12-24 Encounter Location Date Provider Diagnosis [facility] Cory [address] [facility] [phone] [place] [address] Dec, Beata Jones IMMUNIZATIONS Vaccine Route Administration Date Status Pfizer #2 dose COVID-19(given elsewhere) SARSCOV2 VAC 30MCG/ 0.3ML IM Unknown July 10, 2020 Administered Pfizer #1 dose COVID-19(given elsewhere) SARSCOV2 VAC 30MCG/ 0.3ML IM Unknown June 19, 2020 Administered SOCIAL HISTORY Tobacco Use: Social History Observation Description Date Details (start date - stop date) Former Smoker Sex Assigned At : Social History Observation Description Sex Assigned At Unknown Education: Question Answer Notes Level of Education: Finished 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 > 10 years REASON FOR REFERRAL No Information VITAL SIGNS No information MEDICATIONS Medication SIG (Take, Route, Frequency, Duration) Notes Start Da te End Date Status Vitamin D-3 1000 UNIT 2 capsules Orally Once a day Active Lexapro 10 MG 1 tablet Orally Once a day for 90 days Active Ciprofloxacin-Dexamethasone 0.3-0.1 % 4 drops into lef t ear Otic Twice a day for 7 day(s) Dec, Active Amoxicillin 250 MG 1 cap Orally four times daily for 10 days Dec, Active Diflucan 150 MG 1 tablet Orallyas directed 1 today and 1 in 10 days for 2 days Dec, Active Cyclobenzaprine HCl 10 MG 1 tablet Orally Q8 prn for 30 days Active Topiramate ER 200 MG 1 capsule Orally Once a day Active Aspir-81 81 MG 1 1/2 tablet Orally Once a day Active Ibuprofen 800 MG 1 tablet with food or milk a s needed Orally Three times a day for 10 day(s) Jan, Active Nortriptyline HCl 10 MG 1 capsule Orally every other day Active PROCEDURES No Information RESULTS No Results REASON FOR VISIT clarification on script MEDICAL (GENERAL) HISTORY Type Description Date Medical [...] eyes with lens implanted Medical History echocardiogram 12/05/08-[facility]-trace mitral valve insuffiency, LVEF 60-65 [...] No Information FUNCTIONAL STATUS No Information ASSESSMENTS No Information PLAN OF TREATMENT Medication Medication Name Sig Start Date Stop Date Diflucan 150 MG 1 tablet Orallyas directed 1 today and 1 in 10 days for 2 days Dec, Topiramate ER 200 MG 1 capsule Orally Once a day Nortriptyline HCl 10 MG 1 capsule Orally every other day Amoxicillin 250 MG 1 cap Orally four times daily for 10 days Dec, Lexapro 10 MG 1 tablet Orally Once a day for 90 days Cyclobenzaprine HCl 10 MG 1 tablet Orally Q8 prn for 30 days Ciprofloxacin-Dexamethasone 0.3-0.1 % 4 drops into lef t ear Otic Twice a day for 7 day(s) Dec, Next Appt Details Provider Name:Beata Jones, 08:00:00 AM, [address] [facility], , [place], [address], Insurance Providers Payer Name Payer Address Payer Phone Insured Name Patient Relati onship to Insured Coverage Start Date Coverage End Date [facility] [address] [address] [facility] [phone] RUMA AMEZCUA self
--- OUTSIDE RECORDS SUMMARY | 2021-02-21 11:41 | CCD ---
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 A ctive confirmed 4111566 Problem Hx of migraine headaches Z86.69 Active confirmed 201299441 Problem Uncomplicated asthma, unspecified asthma severity J45.909 Active confirmed 889956542 Problem Perimenopause N95.1 Active confirmed 982515 966499267 Problem BMI 29.0-29.9,adult Z68.29 Active confirmed 675540834 Problem Anxiety F41.9 Active confirmed 58880607 Problem History of DVT (deep vein thrombosis) Z86.718 Ac tive confirmed 114784096 Problem Sciatica of left side M54.32 Active confirmed 36767720 Problem BMI 35.0-35.9,adult Z68.35 Active confirmed 579762132 Problem Anxiety disorder, unspecified F41.9 Active confirm ed 752957159 Problem Abnormal laboratory test R89.9 Active confirmed 125802089 Problem Abnormal laboratory test result R89.9 Active confi rmed 493170324 Problem Depression, unspecified depression type F32.9 Active confirmed 51193033 ALLERGIES Allergen (clinical drug ingredient) Drug/Non Drug Allergy do cumented on EMR Reaction Allergy Type Onset Date Status naproxen Naprosyn([facility] Code:[address]-95) itchy, red blisters Drug Allergy Active ENCOUNTERS from 1974 to 2021-01-20 Encounter Location Date Provider Diagnosis [facility] Cory [address] [facility] [phone] [place] [address] Jan, Beata Jones TMJ inflammation M26.69 IMMUNIZATIONS Vaccine Route Administration Date Status Pfizer [...] of Education: Finished 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 > 10 years REASON FOR REFERRAL from 1974 to 2021-01-20 Reason please eval and treat pt wit h ongoing left tmj pain treated seen in office x 2 and urgent care, treated with antibiotics and prednisone with no effect, has no dental issues Diagnosis 1 TMJ inflammation (M26.69) Diagnosis 2 Left ear pain (H92.02) Referral Organization [facility] Harvel Referring Provider First Name Beata Referring Provider Last Name Marvinage Referring Provider Specialty Family Medicine Referred Provider Jeffrey Zhao ([facility]) Referred Provider Specialty Otolaryngology Referral Priority Routine General Notes Marilynn Collins 01/15/2021 12: 41:45 PM > referral faxed VITAL SIGNS Weight 213.4 lbs Jan, Weight-kg 96.8 kg Jan, Height 5'4" in Jan, BMI 36.63 kg/m2 Jan, Heart Rate 80 /min Jan, Respiratory Rate 18 /min Jan, Temperature 98.5 degrees Fahrenheit Jan, Oximetry 99 Jan, Blood pressure systolic 142 mm Hg Jan, Blood pressure diastolic 82 mm Hg Jan, MEDICATIONS Medication SIG (Take, Route, Frequency, Duration) Notes Start Da te End Date Status Lexapro 10 MG 1 tablet Orally Once a day for 90 days Active Ibuprofen 800 MG 1 tablet with food or milk a s needed Orally Three times a day for 10 day(s) Jan, Active Aspir-81 81 MG 1 1/2 tablet Orally Once a day Active Vitamin D-3 1000 UNIT 2 capsules Orally Once a day Active Ciprofloxacin-Dexamethasone 0.3-0.1 % 4 drops into lef t ear Otic Twice a day for 7 day(s) Dec, Active predniSONE 10 MG 3 tablets Orally Once a day for 5 day(s) Dec, Active Amoxicillin 250 MG 1 cap Orally four times daily for 10 days Dec, Active Nortriptyline HCl 10 MG 1 capsule Orally every other day Active Cyclobenzaprine HCl 10 MG 1 tablet Orally Q8 prn for 30 days Active Topiramate ER 200 MG 1 capsule Orally Once a day Active Diflucan 150 MG 1 tablet Orallyas directed 1 today and 1 in 10 days for 2 days Dec, Active PROCEDURES No Information RESULTS No Results REASON FOR VISIT left ear pain MEDICAL (GENERAL) HISTORY Type Description Date Medical [...] eyes with lens implanted Medical History echocardi[facility] 12/05/[facility]-trace mitral valve insuffiency, LVEF 60-65 % [...] Treatment Notes Treatm ent Clinical Notes Jan, TMJ inflammation (ICD-10 - M26.69) Will refer to ENT for further evaluation, question need of a prednisone injection PLAN OF TREATMENT Treatment Notes Assessment Notes Clinical Notes TMJ inflammation Will refer to ENT fo r further evaluation, question need of a prednisone injection Referrals Referral Date Details please eval and treat pt wit h ongoing left tmj pain treated seen in office x 2 and urgent care, treated with antibiotics and prednisone with no effect, has no dental issues, Jeffrey Zhao ([facility]) Next Appt Details as scheduled Reason: Provider Name:Beata Jones, 08:00:00 AM, [address] [facility], , [place], [address], Insurance Providers Payer Name Payer Address Payer Phone Insured Name Patient Relati onship to Insured Coverage Start Date Coverage End Date [facility] [address] [address] [facility] [phone] RUMA BLAIR
--- OUTSIDE RECORDS SUMMARY | 2021-02-21 11:41 | CCD ---
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 A ctive confirmed 2437077 Problem Hx of migraine headaches Z86.69 Active confirmed 089531879 Problem Uncomplicated asthma, unspecified asthma severity J45.909 Active confirmed 989998137 Problem Perimenopause N95.1 Active confirmed 826546 014785910 Problem BMI 29.0-29.9,adult Z68.29 Active confirmed 368772943 Problem Anxiety F41.9 Active confirmed 99493657 Problem History of DVT (deep vein thrombosis) Z86.718 Ac tive confirmed 529802948 Problem Sciatica of left side M54.32 Active confirmed 08393426 Problem BMI 35.0-35.9,adult Z68.35 Active confirmed 948574120 Problem Anxiety disorder, unspecified F41.9 Active confirm ed 153023942 Problem Abnormal laboratory test R89.9 Active confirmed 084081760 Problem Abnormal laboratory test result R89.9 Active confi rmed 510602597 Problem Depression, unspecified depression type F32.9 Active confirmed 73628566 ALLERGIES Allergen (clinical drug ingredient) Drug/Non Drug Allergy do cumented on EMR Reaction Allergy Type Onset Date Status naproxen Naprosyn([facility] Code:[address]-24) itchy, red blisters Drug Allergy Active ENCOUNTERS from 1974 to 2021-01-03 Encounter Location Date Provider Diagnosis [facility] Cory [address] [facility] [phone] [place] [address] Dec, Nancy Escoto TMJ inflammation M26.69 IMMUNIZATIONS Vaccine Route Administration [...] of Education: Finished 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 > 10 years REASON FOR REFERRAL No Information VITAL SIGNS Weight 204 lbs Dec, Weight-kg 92.53 kg Dec, Height 5'4" in Dec, BMI 35.01 kg/m2 Dec, Heart Rate 99 /min Dec, Respiratory Rate 18 /min Dec, Temperature 97.9 degrees Fahrenheit Dec, Oximetry 99 Dec, Blood pressure systolic 128 mm Hg Dec, Blood pressure diastolic 76 mm Hg Dec, MEDICATIONS Medication SIG (Take, Route, Frequency, Duration) [...] 10 days for 2 days Dec, Active Lexapro 10 MG 1 tablet Orally Once a day for 90 days Active Cyclobenzaprine HCl 10 MG 1 tablet Orally Q8 prn for 30 days Active Topiramate ER 200 MG 1 capsule Orally Once a day Active Aspir-81 81 MG 1 1/2 tablet Orally Once a day Active Ibuprofen 800 MG 1 tablet with food or milk a s needed Orally Three times a day for 10 day(s) Jan, Active predniSONE 10 MG 3 tablets Orally Once a day for 5 day(s) Dec, Active Nortriptyline HCl 10 MG 1 capsule Orally every other day Active PROCEDURES No Information RESULTS No Results REASON FOR VISIT ear pain MEDICAL (GENERAL) HISTORY Type Description [...] eyes with lens implanted Medical History echocardiogram 12/05/08-[facility]-trace mitral valve insuffiency, LVEF 60-65 % [...] Notes Treatment Notes Treatm ent Clinical Notes Dec, TMJ inflammation (ICD-10 - M26.69) liquid diet avoid talking and opening mouth/jow as much as possible prednisone sent for patient to start PLAN OF TREATMENT Medication Medication Name Sig Start Date Stop Date predniSONE 10 MG 3 tablets Orally Once a day for 5 day(s) Dec Treatment Notes Assessment Notes Clinical Notes TMJ inflammation liquid dietavoid nicolas andrew and opening mouth/jow as much as possibleprednisone sent for patient to start Next Appt Details prn Reason: Provider Name:Beata Jones, 08:00:00 AM, [address] [facility], , [place], [address], Insurance Providers Payer Name Payer Address Payer Phone Insured Name Patient Relati onship to Insured Coverage Start Date Coverage End Date [facility] [address] [address] [facility] [phone] RUMA BLAIR self
--- OUTSIDE RECORDS SUMMARY | 2021-02-21 11:41 | CCD | Continuity of Care Document ---
Author Author Caroline TY MD Organization Unknown Address [address] [facility], [address] [place] [address] Phone [phone] Care Team Providers Care Supervisor Varnish Name Role Phone Beata Jones R.N. AUTM [phone] AUTM Unavailable Singh Ty M.D. AUTM [phone] Problems Active Problems Provider Date Allergic asthma [...] 10mg Tablets prn Unknown History Medications Sutab 6528-304-751kt Tablets take tablets as directed per doctor [...] lb BMI (Body Mass Index) 36.7 kg/m2 [place] Body Weight 120 lb Weight 97.070 kg BSA (Body Surface Area) 2.01 m2 12/03/2020 11:22am BP Systolic 124 mmHg BP Diastolic 84 mmHg Height 64 inches 5'4" Weight 202.00 lb BMI (Body Mass Index) 34.7 kg/m2 [place] Body Weight 120 lb Weight 91.627 kg BSA (Body Surface Area) 1.96 m2 Results Test Acquired Date Facility Test Result H/L Range Note Laboratory test finding 01/16/2021 [facility] Main Lab [address] [place], [place] [address] [phone] Pathology Request For Service (SEE NOTE) 1 [...] 1525 Procedures Date Code Description Status 01/22/2021 25845 Office/Outpatient New Moderate M DM 45-59 Minutes Completed Medical Devices Description No Information Available Encounters Type Date Location Provider Dx Diagnosis Office Visit 01/22/2021 2:45p [facility] ENT Practice Ruben Olivier M26.602 Left temporomandibular [...] 02/11/2021 3:30 pm - LAKEISHA Ortiz at [facility] Gastroenterology Practice Functional Status Description No Information Available Mental Status Description No Information Available Referrals Refer to Reason for Referral Status Appt Date [facility] Rehab TMJ therapy Created PT/OT/Rehab [address] [place] [address] [phone] Singh Ty M.D. left ear pain and TMJ inflammation Sched uled 01/22/2021 [address] [facility] [address] [place] [address] [phone] Jayden Segal M.D. COLO SCREEN, FAMILY HX OF COLO CA S cheduled 12/24/2020 [facility] Medical [facility] [address] [facility], [facility] [address] [place] [address] [phone]
--- OUTSIDE RECORDS SUMMARY | 2021-02-21 11:41 | CCD | Continuity of Care Document ---
Author Author Caroline TY MD Organization Unknown Address [address] [facility], [address] [place] [address] Phone [phone] Care Team Providers Care Assembler Type Bar And Segment Name Role Phone Beata Jones R.N. AUTM [phone] AUTM Unavailable Singh Ty M.D. AUTM [phone] Problems Active Problems Provider Date Allergic asthma [...] 10mg Tablets prn Unknown History Medications Sutab 8445-719-551ly Tablets take tablets as directed per doctor [...] lb BMI (Body Mass Index) 36.7 kg/m2 [place] Body Weight 120 lb Weight 97.070 kg BSA (Body Surface Area) 2.01 m2 12/03/2020 11:22am BP Systolic 124 mmHg BP Diastolic 84 mmHg Height 64 inches 5'4" Weight 202.00 lb BMI (Body Mass Index) 34.7 kg/m2 [place] Body Weight 120 lb Weight 91.627 kg BSA (Body Surface Area) 1.96 m2 Results Test Acquired Date Facility Test Result H/L Range Note Laboratory test finding 01/16/2021 [facility] Main Lab [address] [place], [place] [address] [phone] Pathology Request For Service (SEE NOTE) 1 [...] 1525 Procedures Date Code Description Status 01/22/2021 44790 Office/Outpatient New Moderate M DM 45-59 Minutes Completed Medical Devices Description No Information Available Encounters Type Date Location Provider Dx Diagnosis Office Visit 01/22/2021 2:45p [facility] ENT Practice Ruben Olivier M26.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, unspecified Assessments Date Code Description Provider 01/22/2021 M26.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, unspecified Singh Ty MD 12/03/2020 Z12.11 Encounter for screening for patience gnant neoplasm of colon Jennifer Brooks, RPA-C 12/03/2020 Z80.0 Family history of malignant neop lasm of digestive organs LAKEISAH Ortiz Plan of Treatment Future Appointment(s):* 02/11/2021 3:30 pm - LAKEISHA Ortiz at [facility] Gastroenterology Practice Functional Status Description No Information Available Mental Status Description No Information Available Referrals Refer to Reason for Referral Status Appt Date [facility] Rehab TMJ therapy Created PT/OT/Rehab [address] [place] [address] [phone] Signh Ty M.D. left ear pain and TMJ inflammation Sched uled 01/22/2021 [address] [facility] [address] [place] [address] [phone] Jayden Segal M.D. COLO SCREEN, FAMILY HX OF COLO CA S cheduled 12/24/2020 [facility] Medical [facility] [address] [facility], [facility] [address] [place] [address] [phone]
--- OUTSIDE RECORDS SUMMARY | 2021-02-21 11:41 | CCD | Continuity of Care Document ---
Author Author Caroline [facility] Organization Unknown Address [address] [place] [address], [address] [place] [address] Phone [phone] Care Team Providers Care Concierge Receptionist Name Role Phone Kathy Jonesjose Alex R.N. AUTM [phone] Problems Description No Active Problems Social History Type Date Description Comments Sex Unknown ETOH Use 1 A Day Tobacco Use Start: Unknown Non Smoker Allergies, Adverse Reactions, Alerts Active Allergies Criticality Reaction | Severity Comments Date Sheila Unable to assess criticality 11/29/2020 Medications Active Medications SIG Qnty Indications Ordering Provide r Date Sutab 5831-863-113kg Tablets take tablets as directed per doctor for bowel prep. 1kit Z12.11 Singh myrick MD 12/03/[address] take 4 tabs by mouth prior to procedure per instructions. 4tabs Z12.11 Singh Gates MD 12/03/2020 Vitamin D 50mcg (2000 Ut) Tablets 1 by mouth every day Unknown Nortriptyline HCL 10mg Capsules Every other day Unknown Lexapro 10mg Tablets Daily Unknown Aspirin Ec Low Dose 81mg Tablets DR Daily Unknown Cyclobenzaprine HCL 10mg Tablets Every other day Unknown Maxalt 10mg Tablets prn Unknown Immunizations Description No Information Available Vital Signs Date Vital Result Comment 12/03/2020 11:22am BP Systolic 124 mmHg BP Diastolic 84 mmHg Height 64 inches 5'4" Weight 202.00 lb BMI (Body Mass Index) 34.7 kg/m2 [place] Body Weight 120 lb Weight 91.627 kg BSA (Body Surface Area) 1.96 m2 Results Description No Information Available Procedures Description No Information Available Medical Devices Description No Information Available Encounters Description No Information Available Assessments Date Code Description Provider 12/03/2020 Z12.11 Encounter for screening for patience gnant neoplasm of colon Jennifer Martinez LAKEISHA Flores 12/03/2020 Z80.0 Family history of malignant neop lasm of digestive organs LAKEISHA Ortiz Plan of Treatment 12/03/2020 - Jennifer Martinez LAKEISHA Flores* Z12.11 Encounter for screening for malignant neoplasm of colon * Z80.0 Family history of malignant neoplasm of digestive organs * * New Medication:* Sutab 8467-514-711 mg * Dulcolax 5 mg * New Orders:* Colonoscopy, Ordered: 12/03/20 * Comments:* Will arrange for colonoscopy. Reviewed risks and benefits of the procedure, as well as other options, with the patient. Bowel prep procedure was discussed with patient, as well as risks and side effects associated with the bowel prep. Patient verbalized understanding of all of the above and is in agreement to proceed. Patient will seek medical attention for any acute changes. Will monitor. * Follow up:* As scheduled, sooner if needed. Functional Status Description No Information Available Mental Status Description No Information Available Referrals Refer to Reason for Referral Status Appt Date Jayden Segal M.D. COLO SCREEN, FAMILY HX OF COLO CA S cheduled 12/24/2020 [facility] [address] [facility], [address] [place] [address] [phone]
--- OUTSIDE RECORDS SUMMARY | 2021-02-21 11:41 | CCD ---
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 A ctive confirmed 1756463 Problem Hx of migraine headaches Z86.69 Active confirmed 311129351 Problem Uncomplicated asthma, unspecified asthma severity J45.909 Active confirmed 852397499 Problem Perimenopause N95.1 Active confirmed 549222 649941687 Problem BMI 29.0-29.9,adult Z68.29 Active confirmed 382774329 Problem Anxiety F41.9 Active confirmed 67155140 Problem History of DVT (deep vein thrombosis) Z86.718 Ac tive confirmed 148246671 Problem Sciatica of left side M54.32 Active confirmed 59819513 Problem BMI 35.0-35.9,adult Z68.35 Active confirmed 092365010 Problem Anxiety disorder, unspecified F41.9 Active confirm ed 323834502 Problem Abnormal laboratory test R89.9 Active confirmed 726691501 Problem Abnormal laboratory test result R89.9 Active confi rmed 863503971 Problem Depression, unspecified depression type F32.9 Active confirmed 26505178 ALLERGIES Allergen (clinical drug ingredient) Drug/Non Drug Allergy do cumented on EMR Reaction Allergy Type Onset Date Status naproxen Naprosyn([facility] Code:[address]-57) itchy, red blisters Drug Allergy Active ENCOUNTERS from 1974 to 2020-12-24 Encounter Location Date Provider Diagnosis [facility] Cory [address] [facility] [phone] [place] [address] 13 Dec, 2020 Beata Servage IMMUNIZATIONS No Information SOCIAL HISTORY Tobacco Use: Social History Observation Description Date Details (start date - stop date) Former Smoker Sex Assigned At : Social History Observation Description Sex Assigned At Unknown Education: Question Answer Notes Level of Education: Finished 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 > 10 years REASON FOR REFERRAL No Information VITAL SIGNS No information MEDICATIONS Medication SIG (Take, Route, Frequency, Duration) Notes Start Da te End Date Status Vitamin D-3 1000 UNIT 2 capsules Orally Once a day Active Ibuprofen 800 MG 1 tablet with food or milk a s needed Orally Three times a day for 10 day(s) Jan, Active Cyclobenzaprine HCl 10 MG 1 tablet Orally every 8 hours as neede d for 30 days May, Active Topiramate ER 200 MG 1 capsule Orally Once a day Active Aspir-81 81 MG 1 1/2 tablet Orally Once a day Active Nortriptyline HCl 10 MG 1 capsule Orally every other day Active Lexapro 10 MG 1 tablet Orally Once a day for 90 days 2019 Active PROCEDURES No Information RESULTS No Results REASON FOR VISIT pain near left ear MEDICAL (GENERAL) HISTORY Type Description Date Medical [...] lens implanted Medical History echocardiogram 12/05/08-[facility]-trace mitral valve insuffiency, [...] Information ASSESSMENTS No Information PLAN OF TREATMENT Next Appt Details Provider Name:Beata Jones, 07:15:00 AM, [address] [place] [address] , [place], [address], Provider Name:Beata Jones, 08:00:00 AM, [address] [place] [address] , [place], [address], Insurance Providers Payer Name Payer Address Payer Phone Insured Name Patient Relati onship to Insured Coverage Start Date Coverage End Date [facility] [address] [address] [facility] [phone] RUMA AMEZCUA self
--- OUTSIDE RECORDS SUMMARY | 2021-02-21 11:41 | CCD ---
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 A ctive confirmed 1496429 Problem Hx of migraine headaches Z86.69 Active confirmed 005532802 Problem Uncomplicated asthma, unspecified asthma severity J45.909 Active confirmed 469971779 Problem Perimenopause N95.1 Active confirmed 854075 407868934 Problem BMI 29.0-29.9,adult Z68.29 Active confirmed 662915628 Problem Anxiety F41.9 Active confirmed 73256836 Problem History of DVT (deep vein thrombosis) Z86.718 Ac tive confirmed 795153872 Problem Sciatica of left side M54.32 Active confirmed 45633466 Problem BMI 35.0-35.9,adult Z68.35 Active confirmed 570495569 Problem Anxiety disorder, unspecified F41.9 Active confirm ed 791548360 Problem Abnormal laboratory test R89.9 Active confirmed 348980247 Problem Abnormal laboratory test result R89.9 Active confi rmed 763102759 Problem Depression, unspecified depression type F32.9 Active confirmed 95154911 ALLERGIES Allergen (clinical drug ingredient) Drug/Non Drug Allergy do cumented on EMR Reaction Allergy Type Onset Date Status naproxen Naprosyn(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 Audit Question Answer Notes Total Score: 3 Interpretation: Alcohol Education Sikhism: Question Answer Notes Sikhism 15 [employer] Domestic Violence: Question Answer Notes [...] former smoker only smoked for 18 m [facility] How long has it been since you [...] lens implanted Medical History echocardiogram 12/05/08-[facility]-trace mitral valve insuffiency, LVEF 60-65 [...] Once a day for 5 day(s) Dec Next Appt Details Provider Name:Beata Jones, 11:30:00 AM, [address] [place] [address], , [place], [address], Provider Name:Beata Jones, 08:00:00 AM, [address] [place] [address], , [place], [address], Insurance Providers Payer Name Payer Address Payer Phone Insured Name Patient Relati onship to Insured Coverage Start Date Coverage End Date [facility] [address] [address] [facility] [phone] RUMA AMEZCUA self
--- OUTSIDE RECORDS SUMMARY | 2021-02-21 11:41 | CCD ---
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 A ctive confirmed 6088972 Problem Hx of migraine headaches Z86.69 Active confirmed 621155418 Problem Uncomplicated asthma, unspecified asthma severity J45.909 Active confirmed 606262053 Problem Perimenopause N95.1 Active confirmed 223984 331701505 Problem BMI 29.0-29.9,adult Z68.29 Active confirmed 948317144 Problem Anxiety F41.9 Active confirmed 65839661 Problem History of DVT (deep vein thrombosis) Z86.718 Ac tive confirmed 695121026 Problem Sciatica of left side M54.32 Active confirmed 28888455 Problem BMI 35.0-35.9,adult Z68.35 Active confirmed 331373567 Problem Anxiety disorder, unspecified F41.9 Active confirm ed 396719230 Problem Abnormal laboratory test R89.9 Active confirmed 017406566 Problem Abnormal laboratory test result R89.9 Active confi rmed 142344890 Problem Depression, unspecified depression type F32.9 Active confirmed 54085790 ALLERGIES Allergen (clinical drug ingredient) Drug/Non Drug Allergy do cumented on EMR Reaction Allergy Type Onset Date Status naproxen Naprosyn([facility] Code:[address]-36) itchy, red blisters Drug Allergy Active ENCOUNTERS from 1974 to 2020-12-27 Encounter Location Date Provider Diagnosis [facility] Cory [address] [facility] [phone] [place] [address] 16 Dec, 2020 Beata Jones IMMUNIZATIONS Vaccine Route Administration Date [...] of Education: 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 Audit Question Answer Notes Total Score: 3 Interpretation: Alcohol Education Gnosticist: Question Answer Notes Gnosticist 15 [employer] Domestic Violence: Question Answer Notes [...] former smoker only smoked for 18 m [facility] How long has it been since you [...] lens implanted Medical History echocardiogram 12/05/08-[facility]-trace mitral valve insuffiency, LVEF 60-65 [...] Dec Next Appt Details Provider Name:Beata Jones, 08:00:00 AM, [address] [facility], , [place], [address], Insurance Providers Payer Name Payer Address Payer Phone Insured Name Patient Relati onship to Insured Coverage Start Date Coverage End Date [facility] [address] [address] [facility] [phone] RUMA AMEZCUA
--- OUTSIDE RECORDS SUMMARY | 2021-02-21 11:41 | CCD ---
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 A ctive confirmed 9626266 Problem Hx of migraine headaches Z86.69 Active confirmed 911407831 Problem Uncomplicated asthma, unspecified asthma severity J45.909 Active confirmed 317575295 Problem Perimenopause N95.1 Active confirmed 576965 471851245 Problem BMI 29.0-29.9,adult Z68.29 Active confirmed 527090541 Problem Anxiety F41.9 Active confirmed 00205387 Problem History of DVT (deep vein thrombosis) Z86.718 Ac tive confirmed 405720989 Problem Sciatica of left side M54.32 Active confirmed 50077532 Problem BMI 35.0-35.9,adult Z68.35 Active confirmed 654605396 Problem Anxiety disorder, unspecified F41.9 Active confirm ed 917566775 Problem Abnormal laboratory test R89.9 Active confirmed 180129965 Problem Abnormal laboratory test result R89.9 Active confi rmed 996294148 Problem Depression, unspecified depression type F32.9 Active confirmed 06869411 ALLERGIES Allergen (clinical drug ingredient) Drug/Non Drug Allergy do cumented on EMR Reaction Allergy Type Onset Date Status naproxen Naprosyn([facility] Code:[address]-34) itchy, red blisters Drug Allergy Active ENCOUNTERS from 1974 to 2020-12-31 Encounter Location Date Provider Diagnosis [facility] Cory [address] [facility] [phone] [place] [address] Dec, Beata Wongage Uncomplicated asthma, unspec ified asthma severity J45.909 ; Anxiety F41.9 ; Left ear pain H92.02 ; Perimenopause N95.1 ; Sciatica of left side M54.32 ; History of DVT (deep vein thrombosis) Z86.718 ; Family history of colon cancer Z80.0 ; 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 > 10 years REASON FOR REFERRAL No Information VITAL SIGNS Weight 207.4 lbs Dec, Weight-kg 94.08 kg Dec, Height 5'4" in 14 Dec, 2020 BMI 35.60 kg/m2 Dec, Heart Rate 84 /min Dec, Respiratory Rate 18 /min Dec, Temperature 99.1 degrees Fahrenheit Dec, Oximetry 100 14 Dec, 2020 Blood pressure systolic 132 mm Hg Dec, Blood pressure diastolic 76 [...] No Results REASON FOR VISIT left ear tender x 3 weeks MEDICAL (GENERAL) HISTORY Type Description Date Medical [...] with lens implanted Medical History echocardiogram 12/05/08-[facility]-trace mitral valve insuffiency, LVEF 60-65 % [...] Treatment Notes Treatm ent Clinical Notes Dec, Uncomplicated asthma, unspec ified asthma severity (ICD-10 - J45.909) states she has been stable, doing well since she lost weight. does not need inhalers Dec, Anxiety (ICD-10 - F41.9) started during the winter states she is doing much better, does not need a increase at the current time Dec, Left ear pain (ICD-10 - H92.02) Antibiotics ordered, and Diflucan, asking something for pain eardrops ordered. Dec, Perimenopause (ICD-10 - N95.1) following with Dr. Del Valle Dec, Sciatica of left side (ICD-10 - M54.32) doing better does not want to go to Physical Thera[y, does home Jose exercises at home. uses muscle relaxer when necessary, does not use if working or driving, has them on hand. 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 saw Dr. Matthews in the past holding off having any further surgeries saw a specialist in [place] everything is on hold Dec, Hx of migraine headaches (ICD-10 - Z86.69) follows with Kimberly MITCHELL at [facility] meds ordered thru neurology states headaches are stable As per HPI no taking every other day PLAN OF TREATMENT Medication Medication Name Sig Start Date Stop Date predniSONE 10 MG 3 tablets Orally Once a day for 5 day(s) Dec Treatment Notes Assessment Notes Clinical Notes Uncomplicated asthma, unspecified asthma severity states she has been stable, doing well since she lost weight.does not need inhalers Anxiety started during the states she is doing much better, does not need a increase at the current time Left ear pain Antibiotics ordered, and Diflucan, asking something for pain eardrops ordered. Perimenopause following with Dr. Loni poon Sciatica of left side doing better does not want to go to Physical Thera[y, does home Jose exercises at home.uses muscle relaxer when necessary, does not use if working or driving,has them on hand. History of DVT (deep vein thrombosis) co ntinues with ASA therapy tolerating with no side effects Family history of colon cancer Has pills for prep for colonoscopy January 21 Bilateral congenital nuclear cataracts a s a child, had laser surgery, lens transplant. saw Dr. Matthwes in the past holding off having any further surgeriessaw a specialist in [place] everything is on hold Hx of migraine headaches follows with Adriana MITCHELL at [facility] under controlmeds ordered thru neurologystates headaches are stableAs per HPI no taking every other day Next Appt Details cancel 12/26 book June 2021 annual well exam Reason: Provider Name:Beata Joens, 08:00:00 AM, [address] [facility], , [place], [address], Insurance Providers Payer Name Payer Address Payer Phone Insured Name Patient Relati onship to Insured Coverage Start Date Coverage End Date [facility] [address] [address] [facility] [phone] RUMA BLAIR self
--- OUTSIDE RECORDS SUMMARY | 2021-02-21 11:41 | CCD | Continuity of Care Document ---
Author Author Caroline TY MD Organization Unknown Address [address] [facility], [address] [place] [address] Phone [phone] Care Team Providers Care Continuity Tester Name Role Phone Beata Jones R.N. AUTM [phone] AUTM Unavailable Singh Ty M.D. AUTM [phone] Problems Active Problems Provider Date Allergic asthma [...] 10mg Tablets prn Unknown History Medications Sutab [id number] Tablets take tablets as directed per doctor [...] lb BMI (Body Mass Index) 36.7 kg/m2 [place] Body Weight 120 lb Weight 97.070 kg BSA (Body Surface Area) 2.01 m2 12/03/2020 11:22am BP Systolic 124 mmHg BP Diastolic 84 mmHg Height 64 inches 5'4" Weight 202.00 lb BMI (Body Mass Index) 34.7 kg/m2 [place] Body Weight 120 lb Weight 91.627 kg BSA (Body Surface Area) 1.96 m2 Results Test Acquired Date Facility Test Result H/L Range Note Laboratory test finding 01/16/2021 [facility] Main Lab [address] [place], [place] [id number] [phone] Pathology Request For Service (SEE NOTE) 1 [...] 1525 Procedures Date Code Description Status 01/22/2021 57333 Office/Outpatient New Moderate M DM 45-59 Minutes Completed Medical Devices Description No Information Available Encounters Type Date Location Provider Dx Diagnosis Office Visit 01/22/2021 2:45p [facility] E[facility] Ruben Olivier M26.602 Left [...] 02/11/2021 3:30 pm - LAKEISHA Ortiz at [facility] Gastroenterology Practice Functional Status Description No Information Available Mental Status Description No Information Available Referrals Refer to Reason for Referral Status Appt Date [facility] Rehab TMJ therapy Created PT/OT/Rehab [address] [place] [address] [phone] Singh Ty M.D. left ear pain and TMJ inflammation Sched uled 01/22/2021 [address] [facility] [address] [place] [address] [phone] Jayden Segal M.D. COLO SCREEN, FAMILY HX OF COLO CA S cheduled 12/24/2020 [facility] Medical [facility] [address] [facility], [facility] [address] [place] [address] [phone]
--- OUTSIDE RECORDS SUMMARY | 2021-02-21 11:41 | CCD | Continuity of Care Document ---
Author Author Caroline TY MD Organization Unknown Address [address] [facility], [address] [place] [address] Phone [phone] Care Team Providers Care Cobbler Apprentice Name Role Phone Beata Jones R.N. AUTM [phone] AUTM Unavailable Singh Ty M.D. AUTM [phone] Problems Active Problems Provider Date Allergic asthma [...] 10mg Tablets prn Unknown History Medications Sutab [id number] Tablets take tablets as directed per doctor [...] lb BMI (Body Mass Index) 36.7 kg/m2 [place] Body Weight 120 lb Weight 97.070 kg BSA (Body Surface Area) 2.01 m2 12/03/2020 11:22am BP Systolic 124 mmHg BP Diastolic 84 mmHg Height 64 inches 5'4" Weight 202.00 lb BMI (Body Mass Index) 34.7 kg/m2 [place] Body Weight 120 lb Weight 91.627 kg BSA (Body Surface Area) 1.96 m2 Results Test Acquired Date Facility Test Result H/L Range Note Laboratory test finding 01/16/2021 [facility] Main Lab [address] [place], [place] [id number] [phone] Pathology Request For Service (SEE NOTE) 1 [...] 1525 Procedures Date Code Description Status 01/22/2021 51874 Office/Outpatient New Moderate M DM 45-59 Minutes Completed Medical Devices Description No Information Available Encounters Type Date Location Provider Dx Diagnosis Office Visit 01/22/2021 2:45p [facility] ENT Practice Ruben Olivier M26.602 Left [...] 02/11/2021 3:30 pm - LAKEISHA Ortiz at [facility] Gastroenterology Practice Functional Status Description No Information Available Mental Status Description No Information Available Referrals Refer to Reason for Referral Status Appt Date [facility] Rehab TMJ therapy Created PT/OT/Rehab [address] [place] [address] [phone] Singh Ty M.D. left ear pain and TMJ inflammation Sched uled 01/22/2021 [address] [facility] [address] [place] [address] [phone] Jayden Segal M.D. COLO SCREEN, FAMILY HX OF COLO CA S cheduled 12/24/2020 [facility] Medical [facility] [address] [facility], [facility] [address] [place] [address] [phone]
--- OUTSIDE RECORDS SUMMARY | 2021-02-21 11:42 | CCD ---
Author Author [facility] Organization [facility] Address Unknown Phone Unavailable Care Team Providers Care Correction Worker Name Role Phone Isai GLEZ MD Unavailable Unavailable GLEZIsai MD Unavailable Unavailable GLEZ, L UZAIR CAGLE Unavailable Unavailable GLEZ, L UZAIR CAGLE Unavailable Unavailable GLEZ, L UZAIR CAGLE Unavailable Unavailable GLEZ, L UZAIR CAGLE Unavailable Unavailable GLEZ, L UZAIR CAGLE Unavailable Unavailable GLEZ, L UZAIR CAGLE Unavailable Unavailable GLEZ, L UZAIR CAGLE Unavailable Unavailable GLEZ, L UZAIR CAGLE Unavailable Unavailable GLEZ, L UZAIR CAGLE Unavailable Unavailable GLEZ, L UZAIR CAGLE Unavailable Unavailable GLEZ, L UZAIR CAGLE Unavailable Unavailable GLEZ, L UZAIR CAGLE Unavailable Unavailable GLEZ, L UZAIR CAGLE Unavailable Unavailable GLEZ, L UZAIR CAGLE Unavailable Unavailable GLEZ, L UZAIR CAGLE Unavailable Unavailable GLEZ, L UZAIR CAGLE Unavailable Unavailable GLEZ, L UZAIR CAGLE Unavailable Unavailable GLEZ, L UZAIR CAGLE Unavailable Unavailable GLEZ, L UZAIR CAGLE Unavailable Unavailable GLEZ, L UZAIR CAGLE Unavailable Unavailable GLEZ, L UZAIR CAGLE Unavailable Unavailable GLEZ, L UZAIR CAGLE Unavailable Unavailable GLEZ, L UZAIR CAGLE Unavailable Unavailable GLEZ, L UZAIR CAGLE Unavailable Unavailable GLEZ, L UZAIR MD Unavailable Unavailable Isai GELZ MD Unavailable Unavailable Isai GLEZ MD Unavailable Unavailable Isai GLEZ MD Unavailable Unavailable Isai GLEZ MD Unavailable Unavailable Isai GLEZ MD Unavailable Unavailable Isai GLEZ MD Unavailable Unavailable Isai GLEZ MD Unavailable Unavailable Isai GLEZ MD Unavailable Unavailable Isai GLEZ MD Unavailable Unavailable Isai GLEZ MD Unavailable Unavailable Isai GLEZ MD Unavailable Unavailable Isai GLEZ MD Unavailable Unavailable Isai GLEZ MD Unavailable Unavailable Isai GLEZ MD Unavailable Unavailable Isai GLEZ MD Unavailable Unavailable Isai GLEZ MD Unavailable Unavailable Isai GLEZ MD Unavailable Unavailable Isai GLEZ MD Unavailable Unavailable Trickey, J Kimberly PA Unavailable Unavailable Trickey, J Kimberly PA Unavailable Unavailable Trickey, J Kimberly PA Unavailable Unavailable Trickey, J Kimberly PA Unavailable Unavailable Trickey, J Kimberly PA Unavailable Unavailable Trickey, J Kimberly PA Unavailable Unavailable Trickey, J Kimberly PA Unavailable Unavailable Trickey, J Kimberly PA Unavailable Unavailable Trickey, J Kimberly PA Unavailable Unavailable Trickey, J Kimberly PA Unavailable Unavailable Trickey, J Kimberly PA Unavailable Unavailable Trickey, J Kimberly PA Unavailable Unavailable Trickey, J Kimberly PA Unavailable Unavailable Trickey, J Kimberly PA Unavailable Unavailable Trickey, J Kimberly PA Unavailable Unavailable Trickey, J Kimberly PA Unavailable Unavailable Trickey, J Kimberly PA Unavailable Unavailable Trickey, J Kimberly PA Unavailable Unavailable Trickey, J Kimberly PA Unavailable Unavailable Trickey, J Kimberly PA Unavailable Unavailable Trickey, J Kimberly PA Unavailable Unavailable Trickey, J Kimberly PA Unavailable Unavailable Trickey, J Kimberly PA Unavailable Unavailable Trickey, J Kimberly PA Unavailable Unavailable Trickey, J Kimberly PA Unavailable Unavailable Trickey, J Kimberly PA Unavailable Unavailable Trickey, J Kimberly PA Unavailable Unavailable Trickey, J Kimberly PA Unavailable Unavailable Trickey, J Kimberly PA Unavailable Unavailable Trickey, J Kimberly PA Unavailable Unavailable Trickey, J Kimberly PA Unavailable Unavailable Trickey, J Kimberly PA Unavailable Unavailable Trickey, J Kimberly PA Unavailable Unavailable Trickey, J Kimberly PA Unavailable Unavailable Trickey, J Kimberly PA Unavailable Unavailable Trickey, J Kimberly PA Unavailable Unavailable Trickey, J Kimberly PA Unavailable Unavailable Trickey, J Kimberly PA Unavailable Unavailable Trickey, J Kimberly PA Unavailable Unavailable Trickey, J Kimberly PA Unavailable Unavailable Trickey, J Kimberly PA Unavailable Unavailable Trickey, J Kimberly PA Unavailable Unavailable Trickey, J Kimberly PA Unavailable Unavailable Trickey, J Kimberly PA Unavailable Unavailable Trickey, J Kimberly PA Unavailable Unavailable Trickey, J Kimberly PA Unavailable Unavailable Trickey, J Kimberly PA Unavailable Unavailable Trickey, J Kimberly PA Unavailable Unavailable Trickey, J Kimberly PA Unavailable Unavailable Karson, Mesha Winters PH.D., M.D. Unavailable Unavailable Karson, Mesha Winters PH.D., M.D. Unavailable Unavailable Karson, Mesha Winters PH.D., M.D. Unavailable Unavailable Karson, Mesha Winters PH.D., M.D. Unavailable Unavailable Karson, Mesha Winters PH.D., M.D. Unavailable Unavailable Karson, Mesha Winters PH.D., M.D. Unavailable Unavailable Karson, Mesha Winters PH.D., M.D. Unavailable Unavailable Karson, Mesha Winters PH.D., M.D. Unavailable Unavailable Karson, Mesha Winters PH.D., M.D. Unavailable Unavailable Karson, Mesha Winters PH.D., M.D. Unavailable Unavailable Karson, Mesha Winters PH.D., M.D. Unavailable Unavailable Karson, Mesha Winters PH.D., M.D. Unavailable Unavailable Karson, Mesha Winters PH.D., M.D. Unavailable Unavailable Karson, Mesha Winters PH.D., M.D. Unavailable Unavailable Karson, Mesha Winters PH.D., M.D. Unavailable Unavailable Karson, Mesha Winters PH.D., M.D. Unavailable Unavailable Karson, Mesha Winters PH.D., M.D. Unavailable Unavailable Karson, Mesha Winters PH.D., M.D. Unavailable Unavailable Karson, Mesha Winters PH.D., M.D. Unavailable Unavailable Karson, Mesha Winters PH.D., M.D. Unavailable Unavailable Karson, Mesha Winters PH.D., M.D. Unavailable Unavailable Karson, Mesha Winters PH.D., M.D. Unavailable Unavailable Karson, Mesha Winters PH.D., M.D. Unavailable Unavailable Karson, Mesha Winters PH.D., M.D. Unavailable Unavailable Karson, Mesha Winters PH.D., M.D. Unavailable Unavailable Karson, Mesha Winters PH.D., M.D. Unavailable Unavailable Karson, C Singh PH.D., M.D. Unavailable Unavailable Karson, C Singh PH.D., M.D. Unavailable Unavailable Karson, C Singh PH.D., M.D. Unavailable Unavailable Karson, C Singh PH.D., M.D. Unavailable Unavailable Karson, C Singh PH.D., M.D. Unavailable Unavailable Karson, C Singh PH.D., M.D. Unavailable Unavailable Karson, C Singh PH.D., M.D. Unavailable Unavailable Karson, C Singh PH.D., M.D. Unavailable Unavailable Karson, C Singh PH.D., M.D. Unavailable Unavailable Karson, C Singh PH.D., M.D. Unavailable Unavailable Karson, C Singh PH.D., M.D. Unavailable Unavailable Karson, C Singh PH.D., M.D. Unavailable Unavailable Karson, C Singh PH.D., M.D. Unavailable Unavailable Karson, C Singh PH.D., M.D. Unavailable Unavailable Karson, C Singh PH.D., M.D. Unavailable Unavailable Karson, C Singh PH.D., M.D. Unavailable Unavailable Karson, C Singh PH.D., M.D. Unavailable Unavailable Karson, C Singh PH.D., M.D. Unavailable Unavailable Karson, C Singh PH.D., M.D. Unavailable Unavailable Karson, C Singh PH.D., M.D. Unavailable Unavailable Karson, C Singh PH.D., M.D. Unavailable Unavailable Karson, C Singh PH.D., M.D. Unavailable Unavailable Karson, C Singh PH.D., M.D. Unavailable Unavailable Karson, C Singh PH.D., M.D. Unavailable Unavailable Karson, C Singh PH.D., M.D. Unavailable Unavailable Karson, C Singh PH.D., M.D. Unavailable Unavailable Karson, C Singh PH.D., M.D. Unavailable Unavailable Karson, C Singh PH.D., M.D. Unavailable Unavailable Karson, C Singh PH.D., M.D. Unavailable Unavailable Karson, C Singh PH.D., M.D. Unavailable Unavailable Karson, C Singh PH.D., M.D. Unavailable Unavailable Karson, C Singh PH.D., M.D. Unavailable Unavailable Karson, C Singh PH.D., M.D. Unavailable Unavailable Karson, C Singh PH.D., M.D. Unavailable Unavailable Karson, Mesha Winters PH.D., M.D. Unavailable Unavailable Karson, Mesha Winters PH.D., M.D. Unavailable Unavailable Karson, C Singh PH.D., M.D. Unavailable Unavailable Karson, C Singh PH.D., M.D. Unavailable Unavailable Karson, C Singh PH.D., M.D. Unavailable Unavailable Karson, Mesha Winters PH.D., M.D. Unavailable Unavailable Karson, Mesha Winters PH.D., M.D. Unavailable Unavailable Karson, Mesha Winters PH.D., M.D. Unavailable Unavailable Karson, Mesha Winters PH.D., M.D. Unavailable Unavailable Karson, Mesha Winters PH.D., M.D. Unavailable Unavailable Karson, Mesha Winters PH.D., M.D. Unavailable Unavailable Karson, Mesha Winters PH.D., M.D. Unavailable Unavailable Karson, Mesha Winters PH.D., M.D. Unavailable Unavailable Karson, Mesha Winters PH.D., M.D. Unavailable Unavailable Karson, Mesha Winters PH.D., M.D. Unavailable Unavailable Karson, Mesha Winters PH.D., M.D. Unavailable Unavailable Karson, Mesha Winters PH.D., M.D. Unavailable Unavailable Karson, Mesha Winters PH.D., M.D. Unavailable Unavailable Karson, Mesha Winters PH.D., M.D. Unavailable Unavailable Karson, Mesha Winters PH.D., M.D. Unavailable Unavailable Karson, Mesha Winters PH.D., M.D. Unavailable Unavailable Karson, Mesha Winters PH.D., M.D. Unavailable Unavailable Re-disclosure Warning The records that you are about to access may contain information from federally-assisted alcohol or drug abuse programs. If such information is present, then the following federally mandated warning applies: This information has been disclosed to you from records protected by federal confidentiality rules (42 CFR part 2). The federal rules prohibit you from making any further disclosure of this information unless further disclosure is expressly permitted by the written consent of the person to whom it pertains or as otherwise permitted by 42 CFR part 2. A general authorization for the release of medical or other information is NOT sufficient for this purpose. The Federal rules restrict any use of the information to criminally investigate or prosecute any alcohol or drug abuse patient.The records that you are about to access may contain highly sensitive health information, the redisclosure of which is protected by Article 27-F of the [facility] Public Health law. If you continue you may have access to information: Regarding HIV / AIDS; Provided by facilities licensed or operated by the [facility] Office of Mental Health; or Provided by the [facility] Office for People With Developmental Disabilities. If such information is present, then the following [facility] mandated warning applies: This information has been disclosed to you from confidential records which are protected by state law. State law prohibits you from making any further disclosure of this information without the specific written consent of the person to whom it pertains, or as otherwise permitted by law. Any unauthorized further disclosure in violation of state law may result in a fine or skilled nursing sentence or both. A general authorization for the release of medical or other information is NOT sufficient authorization for further disc losure. Family History Family Member Name Family Member Gender Family Member Status Date o f Status Description Data Source(s) Unknown Unknown Problem MED[facility] (Maciej green [employer]) Unknown Unknown Problem [facility] ([facility] Unknown Female Encounters Encounter Providers Location Date Indications Data Source(s ) Unknown [address] [place] [phone] 02/05/2021 12:00:00 AM EDT eCW1 ([facility]) Outpatient Attender: Singh Ty PH.D., M.D. Jaswant/Leilani/Martinez casanova/Kody 01/22/2021 02:45:00 PM EDT [facility] ([facility]) Outpatient [address] [place] [phone] 01/15/2021 12:00:00 AM EDT eCW1 ([facility]) Unknown [address] [place] [address] [place] [address] 01/14/2021 12:00:00 AM EDT eCW1 ([facility]) Outpatient [address] [place] [address] Y [phone] 12/27/2020 12:00:00 AM EDT eCW1 ([facility]) Unknown [address] [place] [phone] 12/26/2020 12:00:00 AM EDT eCW1 [facility] [place] [address] [facility] [address] 12/24/2020 12:00:00 AM EDT eCW1 ([facility]) [place] [address] [facility] [address] 12/24/2020 12:00:00 AM EDT eCW1 ([facility]) Unknown [address] [facility] [address] 12/23/2020 12:00:00 AM EDT eCW1 ([facility]) Unknown [address] [facility] [address] 10/15/2020 12:00:00 AM EDT eCW1 ([facility]) Outpatient Attender: Kimberly MITCHELL [facility] n 10/09/2020 08:00:00 AM EDT [facility] ([facility]ayan[facility]) Unknown [address] [facility] [address] 08/29/2020 12:00:00 AM EDT eCW1 [facility]) Outpatient Attender: Kimberly MITCHELL [facility] n 07/10/2020 08:00:00 AM EDT MED[facility] ([facility] Narayanan) [place] [address] [facility] [address] 07/01/2020 12:00:00 AM EDT eCW1 ([facility]) [place]patient [address] [facility] [address] 06/27/2020 12:00:00 AM EDT eCW1 ([facility]) [place] [address] [facility] [address] 06/18/2020 12:00:00 AM EST eCW1 ([facility]) 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 09:00:00 AM EST 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) Unknown [address] [facility] [address] 05/20/2020 12:00:00 AM EST eCW1 ([facility]) [place] [address] [facility] [address] 04/18/2020 12:00:00 AM EST eCW1 ([facility]) Outpatient [address] [facility] [address] 04/16/2020 12:00:00 AM EST eCW1 ([facility]) Outpatient [address] [facility] [address] 03/29/2020 12:00:00 AM EST eCW1 ([facility]) Unknown [address] [facility] [address] 03/28/2020 12:00:00 AM EST eCW1 ([facility]) Outpatient [address] [facility] [address] 03/06/2020 12:00:00 AM EST eCW1 ([facility]) [place]patient [address] [facility] [address] 02/22/2020 12:00:00 AM EST eCW1 ([facility]) Unknown [address] [facility] [address] 02/22/2020 12:00:00 AM EST eCW1 ([facility]) Outpatient Attender: Kimberly MITCHELL [facility] n 02/21/2020 12:45:00 PM EST MED[facility] ([facility] Narayanan) Unknown [address] [facility] [address] 02/07/2020 12:00:00 AM EDT eCW1 ([facility]) Outpatient [address] [facility] [address] 02/07/2020 12:00:00 AM EDT eCW1 ([facility]) Outpatient Attender: Kimberly MITCHELL [facility] n 01/10/2020 08:15:00 AM EDT MEDENT ([facility] Narayanan) Immunizations Vaccine Date Status Description Data Source(s) Pfizer #2 dose COVID-19 (given elsewhere) SARSCOV2 VAC 30MCG/0.3ML IM 07/10/2020 07:28:00 AM EDT completed eCW1 ([facility]) Pfizer #2 dose COVID-19 (given elsewhere) SARSCOV2 VAC 30MCG/0.3ML IM 07/10/2020 07:28:00 AM EDT completed eCW1 ([facility]) Pfizer #2 dose COVID-19(given elsewhere) SARSCOV2 VAC 30MCG/0.3ML IM 07/10/2020 07:28:00 AM EDT completed eCW1 ([facility]) Pfizer #2 dose COVID-19(given elsewhere) SARSCOV2 VAC 30MCG/0.3ML IM 07/10/2020 07:28:00 AM EDT completed eCW1 ([facility]) Pfizer #2 dose COVID-19(given elsewhere) SARSCOV2 VAC 30MCG/0.3ML IM 07/10/2020 07:28:00 AM EDT completed eCW1 ([facility]) Pfizer #2 dose COVID-19(given elsewhere) SARSCOV2 VAC 30MCG/0.3ML IM 07/10/2020 07:28:00 AM EDT completed eCW1 ([facility]) Pfizer #2 dose COVID-19(given elsewhere) SARSCOV2 VAC 30MCG/0.3ML IM 07/10/2020 07:28:00 AM EDT completed eCW1 ([facility]) COVID-19 VACCINE Pfizer 07/10/2020 12:00:00 AM EDT completed [employer] Vaccine Series Complete: YESThis Data wa s Submitted to [facility] Via [employer]. Pfizer #1 dose COVID-19 (given elsewhere) SARSCOV2 VAC 30MCG/0.3ML IM 06/19/2020 07:27:00 AM EST completed eCW1 ([facility]) Pfizer #1 dose COVID-19 (given elsewhere) SARSCOV2 VAC 30MCG/0.3ML IM 06/19/2020 07:27:00 AM EST completed eCW1 ([facility]) Pfizer #1 dose COVID-19(given elsewhere) SARSCOV2 VAC 30MCG/0.3ML IM 06/19/2020 07:27:00 AM EST completed eCW1 ([facility]) Pfizer #1 dose COVID-19(given elsewhere) SARSCOV2 VAC 30MCG/0.3ML IM 06/19/2020 07:27:00 AM EST completed eCW1 ([facility]) Pfizer #1 dose COVID-19(given elsewhere) SARSCOV2 VAC 30MCG/0.3ML IM 06/19/2020 07:27:00 AM EST completed eCW1 ([facility]) Pfizer #1 dose COVID-19(given elsewhere) SARSCOV2 VAC 30MCG/0.3ML IM 06/19/2020 07:27:00 AM EST completed eCW1 ([facility]) Pfizer #1 dose COVID-19(given elsewhere) SARSCOV2 VAC 30MCG/0.3ML IM 06/19/2020 07:27:00 AM EST completed eCW1 ([facility]) COVID-19 VACCINE Pfizer 06/19/2020 12:00:00 AM EST completed [employer] Vaccine Series Complete: NOThis Data was Submitted to [facility] Via [employer]. Medications Medication Brand Name Start Date Product Form Dose Route Admi nistrative Instructions Pharmacy Instructions Status Indications Reaction Description Data Source(s) POLYETHYLENE GLYCOL 3350 142 MG/ML Oral Solution [Miralax] M iralax 02/14/2021 12:00:00 AM EDT active M EDENT ([facility], ) Bisacodyl 5 MG Delayed Release Oral Tablet [Dulcolax] Dulcol ax 02/14/2021 12:00:00 AM EDT ORAL active M EDENT ([facility], ) Cyclobenzaprine hydrochloride 10 MG Oral Tablet CYCLOBENZAPR INE HCL 02/05/2021 12:00:00 AM EDT tablet 30 TAKE ONE TABLET BY MOUTH EVERY 8 HOURS NEEDED TAKE ONE TABLET BY MOUTH EVERY 8 HOURS NEEDED SOLD: 02/07/2021 [facility] 10 mg 01/15/2021 12:00:00 AM EDT capsule 30 TAKE ONE CAPSULE BY MOUTH EVERY EVENING TAKE ONE CAPSULE BY MOUTH EVERY EVENING SOLD: 01/17/2021 [facility] Amoxicillin 875 MG / Clavulanate 125 MG Oral Tablet 87 5-125 mg AMOXICILLIN/POTASSIUM CLAV 01/11/2021 12:00:00 AM EDT tablet 20 TAKE ONE TABLET BY MOUTH TWICE A DAY FOR 10 DAYS TAKE ONE TABLET BY MOUTH TWICE A DAY FOR 10 DAYS SOLD: 01/11/2021 [facility] 10 mg 12/27/2020 12:00:00 AM EDT tablet 15 TAKE THREE TABLETS BY MOUTH EVERY DAY FOR 5 DAYS TAKE THREE TABLETS BY MOUTH EVERY DAY FOR 5 DAYS SOLD: 12/27/2020 [facility] Prednisone 10 MG Oral Tablet predniSONE 10 MG predniSONE 10 MG 12/27/2020 12:00:00 AM EDT 3.0 {tablets} active p redniSONE 10 MG eCW1 ([facility]) Prednisone 10 MG Oral Tablet predniSONE 10 MG predniSONE 10 MG 12/27/2020 12:00:00 AM EDT 3.0 {tablets} active p redniSONE 10 MG eCW1 ([facility]) Prednisone 10 MG Oral Tablet predniSONE 10 MG predniSONE 10 MG 12/27/2020 12:00:00 AM EDT 3.0 {tablets} active p redniSONE 10 MG eCW1 ([facility]) Prednisone 10 MG Oral Tablet predniSONE 10 MG predniSONE 10 MG 12/27/2020 12:00:00 AM EDT 3.0 {tablets} active p redniSONE 10 MG eCW1 ([facility]) Prednisone 10 MG Oral Tablet predniSONE 10 MG predniSONE 10 MG 12/27/2020 12:00:00 AM EDT 3.0 {tablets} active p redniSONE 10 MG eCW1 ([facility]) Prednisone 10 MG Oral Tablet predniSONE 10 MG predniSONE 10 MG 12/27/2020 12:00:00 AM EDT 3.0 {tablets} active p redniSONE 10 MG eCW1 ([facility]) Amoxicillin 250 MG Oral Capsule Amoxicillin 250 MG 12/24/2020 12:00 :00 AM EDT active Amoxicillin 250 MG eCW1 ([facility]) Fluconazole 150 MG Oral Tablet [Diflucan] Diflucan 150 MG Di flucan 150 MG 12/24/2020 12:00:00 AM EDT 1.0 {tablet} active Diflucan 150 MG eCW1 ([facility]) Ciprofloxacin 3 MG/ML / Dexamethasone 1 MG/ML Otic Suspension Ciprofloxacin- Dexamethasone 0.3-0.1 % Ciprofloxacin-Dexamethasone 0.3-0.1 % 12/24/2020 12:00:00 AM EDT active Ciproflo xacin-Dexamethasone 0.3-0.1 % eCW1 ([facility]) Amoxicillin 250 MG Oral Capsule Amoxicillin 250 MG 12/24/2020 12:00 :00 AM EDT active Amoxicillin 250 MG eCW1 ([facility]) Fluconazole 150 MG Oral Tablet [Diflucan] Diflucan 150 MG Di flucan 150 MG 12/24/2020 12:00:00 AM EDT 1.0 {tablet} active Diflucan 150 MG eCW1 ([facility]) Fluconazole 150 MG Oral Tablet [Diflucan] Diflucan 150 MG Di flucan 150 MG 12/24/2020 12:00:00 AM EDT 1.0 {tablet} active Diflucan 150 MG eCW1 ([facility]) 250 mg 12/24/2020 12:00:00 AM EDT capsule 40 TAKE ONE CAPSULE BY MOUTH FOUR TIMES A DAY FOR 10 DAYS TAKE ONE CAPSULE BY MOUTH FOUR TIMES A DAY FOR 10 DAYS SOLD: 12/24/2020 [facility] Amoxicillin 250 MG Oral Capsule Amoxicillin 250 MG 12/24/2020 12:00 :00 AM EDT active Amoxicillin 250 MG eCW1 ([facility]) Amoxicillin 250 MG Oral Capsule Amoxicillin 250 MG 12/24/2020 12:00 :00 AM EDT active Amoxicillin 250 MG eCW1 ([facility]) Amoxicillin 250 MG Oral Capsule Amoxicillin 250 MG 12/24/2020 12:00 :00 AM EDT active Amoxicillin 250 MG eCW1 ([facility]) Fluconazole 150 MG Oral Tablet [Diflucan] Diflucan 150 MG Di flucan 150 MG 12/24/2020 12:00:00 AM EDT 1.0 {tablet} active Diflucan 150 MG eCW1 ([facility]) Ciprofloxacin 3 MG/ML / Dexamethasone 1 MG/ML Otic Suspension Ciprofloxacin- Dexamethasone 0.3-0.1 % Ciprofloxacin-Dexamethasone 0.3-0.1 % 12/24/2020 12:00:00 AM EDT active Ciproflo xacin-Dexamethasone 0.3-0.1 % eCW1 ([facility]) Fluconazole 150 MG Oral Tablet [Diflucan] Diflucan 150 MG Di flucan 150 MG 12/24/2020 12:00:00 AM EDT 1.0 {tablet} active Diflucan 150 MG eCW1 ([facility]) Ciprofloxacin 3 MG/ML / Dexamethasone 1 MG/ML Otic Suspension Ciprofloxacin- Dexamethasone 0.3-0.1 % Ciprofloxacin-Dexamethasone 0.3-0.1 % 12/24/2020 12:00:00 AM EDT active Ciproflo xacin-Dexamethasone 0.3-0.1 % eCW1 ([facility]) Ciprofloxacin 3 MG/ML / Dexamethasone 1 MG/ML Otic Suspension Ciprofloxacin- Dexamethasone 0.3-0.1 % Ciprofloxacin-Dexamethasone 0.3-0.1 % 12/24/2020 12:00:00 AM EDT active Ciproflo xacin-Dexamethasone 0.3-0.1 % eCW1 ([facility]) 150 mg 12/24/2020 12:00:00 AM EDT tablet 2 TAKE ONE TABLET BY MOUTH NOW AND REPEAT IN 2 DAYS TAKE ONE TABLET BY MOUTH NOW AND REPEAT IN 2 DAYS SOLD : 12/27/2020 [facility] Ciprofloxacin 3 MG/ML / Dexamethasone 1 MG/ML Otic Suspension Ciprofloxacin- Dexamethasone 0.3-0.1 % Ciprofloxacin-Dexamethasone 0.3-0.1 % 12/24/2020 12:00:00 AM EDT active Ciproflo xacin-Dexamethasone 0.3-0.1 % eCW1 ([facility]) Fluconazole 150 MG Oral Tablet [Diflucan] Diflucan 150 MG Di flucan 150 MG 12/24/2020 12:00:00 AM EDT 1.0 {tablet} active Diflucan 150 MG eCW1 ([facility]) Escitalopram 10 MG Oral Tablet ESCITALOPRAM OXALATE 12/24/2020 1 2:00:00 AM EDT tablet 90 TAKE ONE TABLET BY MOUTH EVERY D AY TAKE ONE TABLET BY MOUTH EVERY DAY SOLD: 12/24/2020 [facility] Ciprofloxacin 3 MG/ML / Dexamethasone 1 MG/ML Otic Suspension Ciprofloxacin- Dexamethasone 0.3-0.1 % Ciprofloxacin-Dexamethasone 0.3-0.1 % 12/24/2020 12:00:00 AM EDT active Ciproflo xacin-Dexamethasone 0.3-0.1 % eCW1 ([facility]) Ciprofloxacin 3 MG/ML / Dexamethasone 1 MG/ML Otic Suspension Ciprofloxacin- Dexamethasone 0.3-0.1 % Ciprofloxacin-Dexamethasone 0.3-0.1 % 12/24/2020 12:00:00 AM EDT active Ciproflo xacin-Dexamethasone 0.3-0.1 % eCW1 ([facility]) Amoxicillin 250 MG Oral Capsule Amoxicillin 250 MG 12/24/2020 12:00 :00 AM EDT active Amoxicillin 250 MG eCW1 ([facility]) 0.3-0.1 % 12/24/2020 12:00:00 AM EDT drops,suspension 7 INSTILL 4 DROPS INTO THE LEFT EAR TWO TIMES A DAY FOR 7 DAYS INSTILL 4 DROPS INTO THE LEFT EAR TWO TIMES A DAY FOR 7 DAYS SOLD: 12/24/2020 [facility] Fluconazole 150 MG Oral Tablet [Diflucan] Diflucan 150 MG Di flucan 150 MG 12/24/2020 12:00:00 AM EDT 1.0 {tablet} active Diflucan 150 MG eCW1 ([facility]) Amoxicillin 250 MG Oral Capsule Amoxicillin 250 MG 12/24/2020 12:00 :00 AM EDT active Amoxicillin 250 MG eCW1 ([facility]) Bisacodyl 5 MG Delayed Release Oral Tablet [Dulcolax] Dulcol ax 12/03/2020 12:00:00 AM EDT ORAL completed [facility] ([facility]) Sutab Sutab 12/03/2020 12:00:00 AM EDT completed [facility] ([facility] 1.479-0.188- 0.225 gram 12/03/2020 12:00:00 AM EDT tablet 24 TAKE TABLETS DIRECTED BY DOCTOR FOR BOWEL PREP TAKE TABLETS DIRECTED BY DOCTOR FOR B OWEL PREP SOLD: 12/16/2020 [facility] rizatriptan 10 MG Disintegrating Oral Tablet RIZATRIPTAN KAREN ZOATE 10/09/2020 12:00:00 AM EDT tablet,disintegrating 8 PLACE ONE TABLET UNDER THE TONGUE AT THE ONSET OF MIGRAINE, MAY REPEAT IN 2 HOURS NEEDED MAXIMUM DAILY DOSE = [address] ONE TABLET UNDER THE TONGUE AT THE ONSET OF MIGRAINE, MAY REPEAT IN 2 HOURS NEEDED MAXIMUM DAILY DOSE = 2 TABS. SOLD: 10/09/2020 [facility] Cyclobenzaprine hydrochloride 10 MG Oral Tablet CYCLOBENZAPR INE HCL 08/29/2020 12:00:00 AM EDT tablet 30 TAKE ONE TABLET BY MOUTH EVERY 8 HOURS NEEDED TAKE ONE TABLET BY MOUTH EVERY 8 HOURS NEEDED SOLD: 10/29/2020 [facility] Cyclobenzaprine hydrochloride 10 MG Oral Tablet CYCLOBENZAPR INE HCL 08/29/2020 12:00:00 AM EDT tablet 30 TAKE ONE TABLET BY MOUTH EVERY 8 HOURS NEEDED TAKE ONE TABLET BY MOUTH EVERY 8 HOURS NEEDED SOLD: 12/16/2020 [facility] Cyclobenzaprine hydrochloride 10 MG Oral Tablet CYCLOBENZAPR INE HCL 08/29/2020 12:00:00 AM EDT tablet 30 TAKE ONE TABLET BY MOUTH EVERY 8 HOURS NEEDED TAKE ONE TABLET BY MOUTH EVERY 8 HOURS NEEDED SOLD: 08/30/2020 [facility] 200 mg 08/15/2020 12:00:00 AM EDT capsule 21 TAKE ONE CAPSULE BY MOUTH THREE TIMES A DAY FOR 7 DAYS TAKE ONE CAPSULE BY MOUTH THREE TIMES A DAY FOR 7 DAYS SOLD: 08/15/2020 [facility] Amoxicillin 875 MG / Clavulanate 125 MG Oral Tablet 87 5-125 mg AMOXICILLIN/POTASSIUM CLAV 08/15/2020 12:00:00 AM EDT tablet 14 TAKE ONE TABLET BY MOUTH TWICE A DAY FOR 7 DAYS TAKE ONE TABLET BY MOUTH TWICE A DAY FOR 7 DAYS SOLD: 08/15/2020 [facility] topiramate 200 MG Oral Tablet TOPIRAMATE 07/16/2020 12:00:00 AM EDT ta blet 30 TAKE ONE TABLET BY MOUTH AT BEDTIME TAKE ONE TABLET BY MOUTH AT BEDTIME SOLD: 08/30/2020 [facility] topiramate 200 MG Oral Tablet TOPIRAMATE 07/16/2020 12:00:00 AM EDT ta blet 30 TAKE ONE TABLET BY MOUTH AT BEDTIME TAKE ONE TABLET BY MOUTH AT BEDTIME SOLD: 07/25/2020 [facility] Escitalopram 10 MG Oral Tablet ESCITALOPRAM OXALATE 06/27/2020 1 2:00:00 AM EDT tablet 90 TAKE ONE TABLET BY MOUTH EVERY D AY TAKE ONE TABLET BY MOUTH EVERY DAY SOLD: 09/27/2020 [facility] Escitalopram 10 MG Oral Tablet ESCITALOPRAM OXALATE 06/27/2020 1 2:00:00 AM EDT tablet 90 TAKE ONE TABLET BY MOUTH EVERY D AY TAKE ONE TABLET BY MOUTH EVERY DAY SOLD: 06/29/2020 [facility] Cyclobenzaprine hydrochloride 10 MG Oral Tablet CYCLOBENZAPR INE HCL 06/27/2020 12:00:00 AM EDT tablet 30 TAKE ONE TABLET BY MOUTH EVERY 8 HOURS NEEDED TAKE ONE TABLET BY MOUTH EVERY 8 HOURS NEEDED SOLD: 06/29/2020 [facility] Cyclobenzaprine hydrochloride 10 MG Oral Tablet CYCLOBENZAPR INE HCL 06/19/2020 12:00:00 AM EST tablet 30 TAKE ONE TABLET BY MOUTH EVERY 8 HOURS NEEDED FOR 10 DAYS TAKE ONE TABLET BY MOUTH EVERY 8 HOURS NEEDED FOR 1 0 DAYS SOLD: 06/19/2020 [facility] Cyclobenzaprine hydrochloride 10 MG Oral Tablet Cyclob enzaprine HCl 10 MG Cyclobenzaprine HCl 10 MG 05/20/2020 12:00:00 AM EST 1.0 {tablet} active Cyclobenzaprine HCl 10 MG eCW1 ( [facility]) Prednisone 20 MG Oral Tablet PredniSONE 20 MG PredniSONE 20 MG 05/20/2020 12:00:00 AM EST 1.0 {tablet} active Pr edniSONE 20 MG eCW1 ([facility]) Prednisone 20 MG Oral Tablet PredniSONE 20 MG PredniSONE 20 MG 05/20/2020 12:00:00 AM EST 1.0 {tablet} active Pr edniSONE 20 MG eCW1 ([facility]) 20 mg 05/20/2020 12:00:00 AM EST tablet 10 TAKE ONE TABLET BY MOUTH TWICE A DAY FOR 5 DAYS TAKE ONE TABLET BY MOUTH TWICE A DAY FOR 5 DAYS SOLD: 2020 [facility] Cyclobenzaprine hydrochloride 10 MG Oral Tablet Cyclob enzaprine HCl 10 MG Cyclobenzaprine HCl 10 MG 05/20/2020 12:00:00 AM EST 1.0 {tablet} active Cyclobenzaprine HCl 10 MG eCW1 ( [facility]) Cyclobenzaprine hydrochloride 10 MG Oral Tablet Cyclob enzaprine HCl 10 MG Cyclobenzaprine HCl 10 MG 05/20/2020 12:00:00 AM EST 1.0 {tablet} active Cyclobenzaprine HCl 10 MG eCW1 ( [facility]) Cyclobenzaprine hydrochloride 10 MG Oral Tablet Cyclob enzaprine HCl 10 MG Cyclobenzaprine HCl 10 MG 05/20/2020 12:00:00 AM EST 1.0 {tablet} active Cyclobenzaprine HCl 10 MG eCW1 ( [facility]) Cyclobenzaprine hydrochloride 10 MG Oral Tablet CYCLOBENZAPR INE HCL 05/20/2020 12:00:00 AM EST tablet 30 TAKE ONE TABLET BY MOUTH EVERY 8 HOURS NEEDED FOR 10 DAYS TAKE ONE TABLET BY MOUTH EVERY 8 HOURS NEEDED FOR 1 0 DAYS SOLD: 05/20/2020 [facility] Cyclobenzaprine hydrochloride 10 MG Oral Tablet Cyclob enzaprine HCl 10 MG Cyclobenzaprine HCl 10 MG 05/20/2020 12:00:00 AM EST 1.0 {tablet} active Cyclobenzaprine HCl 10 MG eCW1 ( [facility]) Prednisone 20 MG Oral Tablet PredniSONE 20 MG PredniSONE 20 MG 05/20/2020 12:00:00 AM EST 1.0 {tablet} active Pr edniSONE 20 MG eCW1 ([facility]) Cyclobenzaprine hydrochloride 10 MG Oral Tablet Cyclob enzaprine HCl 10 MG Cyclobenzaprine HCl 10 MG 05/20/2020 12:00:00 AM EST 1.0 {tablet} active Cyclobenzaprine HCl 10 MG eCW1 ( [facility]) Cyclobenzaprine hydrochloride 10 MG Oral Tablet Cyclob enzaprine HCl 10 MG Cyclobenzaprine HCl 10 MG 05/20/2020 12:00:00 AM EST 1.0 {tablet} active Cyclobenzaprine HCl 10 MG eCW1 ( [facility]) Cyclobenzaprine hydrochloride 10 MG Oral Tablet Cyclob enzaprine HCl 10 MG Cyclobenzaprine HCl 10 MG 05/20/2020 12:00:00 AM EST 1.0 {tablet} active Cyclobenzaprine HCl 10 MG eCW1 ( [facility]) Escitalopram 10 MG Oral Tablet ESCITALOPRAM OXALATE 04/20/2020 1 2:00:00 AM EST tablet 30 TAKE ONE TABLET BY MOUTH EVERY D AY TAKE ONE TABLET BY MOUTH EVERY DAY SOLD: 04/23/2020 [facility] Escitalopram 10 MG Oral Tablet ESCITALOPRAM OXALATE 04/20/2020 1 2:00:00 AM EST tablet 30 TAKE ONE TABLET BY MOUTH EVERY D AY TAKE ONE TABLET BY MOUTH EVERY DAY SOLD: 05/30/2020 [facility] Escitalopram 10 MG Oral Tablet ESCITALOPRAM OXALATE 03/30/2020 1 2:00:00 AM EST tablet 30 TAKE ONE TABLET BY MOUTH EVERY D AY TAKE ONE TABLET BY MOUTH EVERY DAY SOLD: 03/30/2020 [facility] Escitalopram 10 MG Oral Tablet [Lexapro] Lexapro 10 MG Lexap ro 10 MG 03/29/2020 12:00:00 AM EST 1.0 {tablet} active Le xapro 10 MG eCW1 ([facility]) Escitalopram 10 MG Oral Tablet [Lexapro] Lexapro 10 MG Lexap ro 10 MG 03/29/2020 12:00:00 AM EST 1.0 {tablet} active Le xapro 10 MG eCW1 ([facility]) Escitalopram 10 MG Oral Tablet [Lexapro] Lexapro 10 MG Lexap ro 10 MG 03/29/2020 12:00:00 AM EST 1.0 {tablet} active Le xapro 10 MG eCW1 ([facility]) Escitalopram 10 MG Oral Tablet [Lexapro] Lexapro 10 MG Lexap ro 10 MG 03/29/2020 12:00:00 AM EST 1.0 {tablet} active Le xapro 10 MG eCW1 ([facility]) Escitalopram 10 MG Oral Tablet [Lexapro] Lexapro 10 MG Lexap ro 10 MG 03/29/2020 12:00:00 AM EST 1.0 {tablet} active Le xapro 10 MG eCW1 ([facility]) Escitalopram 10 MG Oral Tablet [Lexapro] Lexapro 10 MG Lexap ro 10 MG 03/29/2020 12:00:00 AM EST 1.0 {tablet} active Le xapro 10 MG eCW1 ([facility]) Escitalopram 10 MG Oral Tablet [Lexapro] Lexapro 10 MG Lexap ro 10 MG 03/29/2020 12:00:00 AM EST 1.0 {tablet} active Le xapro 10 MG eCW1 ([facility]) Escitalopram 10 MG Oral Tablet [Lexapro] Lexapro 10 MG Lexap ro 10 MG 03/29/2020 12:00:00 AM EST 1.0 {tablet} active Le xapro 10 MG eCW1 ([facility]) Escitalopram 10 MG Oral Tablet [Lexapro] Lexapro 10 MG Lexap ro 10 MG 03/29/2020 12:00:00 AM EST 1.0 {tablet} active Le xapro 10 MG eCW1 ([facility]) Escitalopram 10 MG Oral Tablet [Lexapro] Lexapro 10 MG Lexap ro 10 MG 03/29/2020 12:00:00 AM EST 1.0 {tablet} active Le xapro 10 MG eCW1 ([facility]) Escitalopram 10 MG Oral Tablet [Lexapro] Lexapro 10 MG Lexap ro 10 MG 03/29/2020 12:00:00 AM EST 1.0 {tablet} active Le xapro 10 MG eCW1 ([facility]) Escitalopram 10 MG Oral Tablet [Lexapro] Lexapro 10 MG Lexap ro 10 MG 03/29/2020 12:00:00 AM EST 1.0 {tablet} active Le xapro 10 MG eCW1 ([facility]) Cyclobenzaprine hydrochloride 10 MG Oral Tablet CYCLOBENZAPR INE HCL 03/06/2020 12:00:00 AM EST tablet 10 TAKE ONE TABLET BY MOUTH BEFORE BEDTIME TAKE ONE TABLET BY MOUTH BEFORE BEDTIME SOLD: 03/06/2020 [facility] 10 mg 03/06/2020 12:00:00 AM EST capsule 30 TAKE ONE CAPSULE BY MOUTH IN THE EVENING TAKE ONE CAPSULE BY MOUTH IN THE EVENING SOLD: 11/18/2020 [facility] 10 mg 03/06/2020 12:00:00 AM EST capsule 30 TAKE ONE CAPSULE BY MOUTH IN THE EVENING TAKE ONE CAPSULE BY MOUTH IN THE EVENING SOLD: 08/22/2020 [facility] 10 mg 03/06/2020 12:00:00 AM EST capsule 30 TAKE ONE CAPSULE BY MOUTH IN THE EVENING TAKE ONE CAPSULE BY MOUTH IN THE EVENING SOLD: 04/24/2020 [facility] 10 mg 03/06/2020 12:00:00 AM EST capsule 30 TAKE ONE CAPSULE BY MOUTH IN THE EVENING TAKE ONE CAPSULE BY MOUTH IN THE EVENING SOLD: 03/14/2020 [facility] Cyclobenzaprine hydrochloride 10 MG Oral Tablet CYCLOBENZAPR INE HCL 03/06/2020 12:00:00 AM EST tablet 10 TAKE ONE TABLET BY MOUTH BEFORE BEDTIME TAKE ONE TABLET BY MOUTH BEFORE BEDTIME SOLD: 03/22/2020 [facility] 10 mg 03/06/2020 12:00:00 AM EST capsule 30 TAKE ONE CAPSULE BY MOUTH IN THE EVENING TAKE ONE CAPSULE BY MOUTH IN THE EVENING SOLD: 06/19/2020 [facility] 10 mg 03/06/2020 12:00:00 AM EST capsule 30 TAKE ONE CAPSULE BY MOUTH IN THE EVENING TAKE ONE CAPSULE BY MOUTH IN THE EVENING SOLD: 10/17/2020 [facility] Ciprofloxacin 500 MG Oral Tablet [Cipro] Cipro 500 MG Cipro 500 MG 02/22/2020 12:00:00 AM EST 1.0 {tablet} suspended Cipro 500 MG eCW1 ([facility]) Ciprofloxacin 500 MG Oral Tablet [Cipro] Cipro 500 MG Cipro 500 MG 02/22/2020 12:00:00 AM EST 1.0 {tablet} suspended Cipro 500 MG eCW1 ([facility]) Ciprofloxacin 500 MG Oral Tablet [Cipro] Cipro 500 MG Cipro 500 MG 02/22/2020 12:00:00 AM EST 1.0 {tablet} active Ci pro 500 MG eCW1 ([facility]) Ciprofloxacin 500 MG Oral Tablet [Cipro] Cipro 500 MG Cipro 500 MG 02/22/2020 12:00:00 AM EST 1.0 {tablet} suspended Cipro 500 MG eCW1 ([facility]) Ciprofloxacin 500 MG Oral Tablet [Cipro] Cipro 500 MG Cipro 500 MG 02/22/2020 12:00:00 AM EST 1.0 {tablet} suspended Cipro 500 MG eCW1 ([facility]) Ciprofloxacin 500 MG Oral Tablet [Cipro] Cipro 500 MG Cipro 500 MG 02/22/2020 12:00:00 AM EST 1.0 {tablet} suspended Cipro 500 MG eCW1 ([facility]) Ciprofloxacin 500 MG Oral Tablet [Cipro] Cipro 500 MG Cipro 500 MG 02/22/2020 12:00:00 AM EST 1.0 {tablet} active Ci pro 500 MG eCW1 ([facility]) Ciprofloxacin 500 MG Oral Tablet [Cipro] Cipro 500 MG Cipro 500 MG 02/22/2020 12:00:00 AM EST 1.0 {tablet} suspended Cipro 500 MG eCW1 ([facility]) Ciprofloxacin 500 MG Oral Tablet [Cipro] Cipro 500 MG Cipro 500 MG 02/22/2020 12:00:00 AM EST 1.0 {tablet} suspended Cipro 500 MG eCW1 ([facility]) 500 mg 02/22/2020 12:00:00 AM EST tablet 14 TAKE ONE TABLET BY MOUTH EVERY 12 HOURS FOR 7 DAYS TAKE ONE TABLET BY MOUTH EVERY 12 HOURS FOR 7 DAYS ALICE [facility] Ciprofloxacin 500 MG Oral Tablet [Cipro] Cipro 500 MG Cipro 500 MG 02/22/2020 12:00:00 AM EST 1.0 {tablet} suspended Cipro 500 MG eCW1 ([facility]) Omeprazole 20 MG Delayed Release Oral Capsule Omeprazole 20 MG 02/07/2020 12:00:00 AM EDT active Omeprazo le 20 MG eCW1 ([facility]) Ibuprofen 800 MG Oral Tablet Ibuprofen 800 MG 02/07/2020 12:00:00 AM E DT active Ibuprofen 800 MG eCW1 ([facility]) Ibuprofen 800 MG Oral Tablet Ibuprofen 800 MG 02/07/2020 12:00:00 AM E DT active Ibuprofen 800 MG eCW1 ([facility]) 800 mg 02/07/2020 12:00:00 AM EDT tablet 30 TAKE ONE TABLET BY MOUTH THREE TIMES A DAY WITH MILK OR FOOD NEEDED TAKE ONE TABLET BY MOUTH THREE TIMES A DAY WITH MILK OR FOOD NEEDED SOLD: 02/07/2020 [facility] Ibuprofen 800 MG Oral Tablet Ibuprofen 800 MG 02/07/2020 12:00:00 AM E DT active Ibuprofen 800 MG eCW1 ([facility]) Ibuprofen 800 MG Oral Tablet Ibuprofen 800 MG 02/07/2020 12:00:00 AM E DT active Ibuprofen 800 MG eCW1 ([facility]) Ibuprofen 800 MG Oral Tablet Ibuprofen 800 MG 02/07/2020 12:00:00 AM E DT active Ibuprofen 800 MG eCW1 ([facility]) Omeprazole 20 MG Delayed Release Oral Capsule Omeprazole 20 MG 02/07/2020 12:00:00 AM EDT suspended Omepr azole 20 MG eCW1 ([facility]) Omeprazole 20 MG Delayed Release Oral Capsule Omeprazole 20 MG 02/07/2020 12:00:00 AM EDT suspended Omepr azole 20 MG eCW1 ([facility]) Ibuprofen 800 MG Oral Tablet Ibuprofen 800 MG 02/07/2020 12:00:00 AM E DT active Ibuprofen 800 MG eCW1 ([facility]) Cyclobenzaprine hydrochloride 10 MG Oral Tablet Cyclob enzaprine HCl 10 MG Cyclobenzaprine HCl 10 MG 02/07/2020 12:00:00 AM EDT suspended Cyclobenzaprine HCl 10 MG eCW1 ([facility]) Ibuprofen 800 MG Oral Tablet Ibuprofen 800 MG 02/07/2020 12:00:00 AM E DT active Ibuprofen 800 MG eCW1 ([facility]) 20 mg 02/07/2020 12:00:00 AM EDT capsule,delayed release (DR/EC) 10 TAKE ONE CAPSULE BY MOUTH EVERY DAY FOR 10 DAYS TAKE ONE CAPSULE BY MOUTH EVERY DAY FOR 10 DAYS SOLD: 02/07/2020 [facility] Ibuprofen 800 MG Oral Tablet Ibuprofen 800 MG 02/07/2020 12:00:00 AM E DT active Ibuprofen 800 MG eCW1 ([facility]) Cyclobenzaprine hydrochloride 10 MG Oral Tablet Cyclob enzaprine HCl 10 MG Cyclobenzaprine HCl 10 MG 02/07/2020 12:00:00 AM EDT active Cyclobenzaprine HCl 10 MG eCW1 ([facility]) Cyclobenzaprine hydrochloride 10 MG Oral Tablet Cyclob enzaprine HCl 10 MG Cyclobenzaprine HCl 10 MG 02/07/2020 12:00:00 AM EDT suspended Cyclobenzaprine HCl 10 MG eCW1 ([facility]) Cyclobenzaprine hydrochloride 10 MG Oral Tablet CYCLOBENZAPR INE HCL 02/07/2020 12:00:00 AM EDT tablet 10 TAKE ONE TABLET BY MOUTH EVERY DAY BEFORE BEDTIME TAKE ONE TABLET BY MOUTH EVERY DAY BEFORE BEDTIME SOLD: 02/07/2020 [facility] Omeprazole 20 MG Delayed Release Oral Capsule Omeprazole 20 MG 02/07/2020 12:00:00 AM EDT suspended Omepr azole 20 MG eCW1 ([facility]) Cyclobenzaprine hydrochloride 10 MG Oral Tablet Cyclob enzaprine HCl 10 MG Cyclobenzaprine HCl 10 MG 02/07/2020 12:00:00 AM EDT suspended Cyclobenzaprine HCl 10 MG eCW1 ([facility]) Omeprazole 20 MG Delayed Release Oral Capsule Omeprazole 20 MG 02/07/2020 12:00:00 AM EDT active Omeprazo le 20 MG eCW1 ([facility]) Omeprazole 20 MG Delayed Release Oral Capsule Omeprazole 20 MG 02/07/2020 12:00:00 AM EDT suspended Omepr azole 20 MG eCW1 ([facility]) Cyclobenzaprine hydrochloride 10 MG Oral Tablet Cyclob enzaprine HCl 10 MG Cyclobenzaprine HCl 10 MG 02/07/2020 12:00:00 AM EDT suspended Cyclobenzaprine HCl 10 MG eCW1 ([facility]) Cyclobenzaprine hydrochloride 10 MG Oral Tablet Cyclob enzaprine HCl 10 MG Cyclobenzaprine HCl 10 MG 02/07/2020 12:00:00 AM EDT suspended Cyclobenzaprine HCl 10 MG eCW1 ([facility]) Cyclobenzaprine hydrochloride 10 MG Oral Tablet Cyclob enzaprine HCl 10 MG Cyclobenzaprine HCl 10 MG 02/07/2020 12:00:00 AM EDT suspended Cyclobenzaprine HCl 10 MG eCW1 ([facility]) Ibuprofen 800 MG Oral Tablet Ibuprofen 800 MG 02/07/2020 12:00:00 AM E DT active Ibuprofen 800 MG eCW1 ([facility]) Ibuprofen 800 MG Oral Tablet Ibuprofen 800 MG 02/07/2020 12:00:00 AM E DT active Ibuprofen 800 MG eCW1 ([facility]) Ibuprofen 800 MG Oral Tablet Ibuprofen 800 MG 02/07/2020 12:00:00 AM E DT active Ibuprofen 800 MG eCW1 ([facility]) Ibuprofen 800 MG Oral Tablet Ibuprofen 800 MG 02/07/2020 12:00:00 AM E DT active Ibuprofen 800 MG eCW1 ([facility]) Ibuprofen 800 MG Oral Tablet Ibuprofen 800 MG 02/07/2020 12:00:00 AM E DT active Ibuprofen 800 MG eCW1 ([facility]) Cyclobenzaprine hydrochloride 10 MG Oral Tablet Cyclob enzaprine HCl 10 MG Cyclobenzaprine HCl 10 MG 02/07/2020 12:00:00 AM EDT suspended Cyclobenzaprine HCl 10 MG eCW1 ([facility]) Ibuprofen 800 MG Oral Tablet Ibuprofen 800 MG 02/07/2020 12:00:00 AM E DT active Ibuprofen 800 MG eCW1 ([facility]) Ibuprofen 800 MG Oral Tablet Ibuprofen 800 MG 02/07/2020 12:00:00 AM E DT active Ibuprofen 800 MG eCW1 ([facility]) Ibuprofen 800 MG Oral Tablet Ibuprofen 800 MG 02/07/2020 12:00:00 AM E DT active Ibuprofen 800 MG eCW1 ([facility]) Ibuprofen 800 MG Oral Tablet Ibuprofen 800 MG 02/07/2020 12:00:00 AM E DT active Ibuprofen 800 MG eCW1 ([facility]) Omeprazole 20 MG Delayed Release Oral Capsule Omeprazole 20 MG 02/07/2020 12:00:00 AM EDT suspended Omepr azole 20 MG eCW1 ([facility]) Omeprazole 20 MG Delayed Release Oral Capsule Omeprazole 20 MG 02/07/2020 12:00:00 AM EDT suspended Omepr azole 20 MG eCW1 ([facility]) Ibuprofen 800 MG Oral Tablet Ibuprofen 800 MG 02/07/2020 12:00:00 AM E DT active Ibuprofen 800 MG eCW1 ([facility]) Cyclobenzaprine hydrochloride 10 MG Oral Tablet Cyclob enzaprine HCl 10 MG Cyclobenzaprine HCl 10 MG 02/07/2020 12:00:00 AM EDT active Cyclobenzaprine HCl 10 MG eCW1 ([facility]) Ibuprofen 800 MG Oral Tablet Ibuprofen 800 MG 02/07/2020 12:00:00 AM E DT active Ibuprofen 800 MG eCW1 ([facility]) Ibuprofen 800 MG Oral Tablet Ibuprofen 800 MG 02/07/2020 12:00:00 AM E DT active Ibuprofen 800 MG eCW1 ([facility]) Ibuprofen 800 MG Oral Tablet Ibuprofen 800 MG 02/07/2020 12:00:00 AM E DT active Ibuprofen 800 MG eCW1 ([facility]) Cyclobenzaprine hydrochloride 10 MG Oral Tablet Cyclob enzaprine HCl 10 MG Cyclobenzaprine HCl 10 MG 02/07/2020 12:00:00 AM EDT active Cyclobenzaprine HCl 10 MG eCW1 ([facility]) Cyclobenzaprine hydrochloride 10 MG Oral Tablet Cyclob enzaprine HCl 10 MG Cyclobenzaprine HCl 10 MG 02/07/2020 12:00:00 AM EDT active Cyclobenzaprine HCl 10 MG eCW1 ([facility]) Omeprazole 20 MG Delayed Release Oral Capsule Omeprazole 20 MG 02/07/2020 12:00:00 AM EDT suspended Omepr azole 20 MG eCW1 ([facility]) Ibuprofen 800 MG Oral Tablet Ibuprofen 800 MG 02/07/2020 12:00:00 AM E DT active Ibuprofen 800 MG eCW1 ([facility]) Omeprazole 20 MG Delayed Release Oral Capsule Omeprazole 20 MG 02/07/2020 12:00:00 AM EDT active Omeprazo le 20 MG eCW1 ([facility]) Omeprazole 20 MG Delayed Release Oral Capsule Omeprazole 20 MG 02/07/2020 12:00:00 AM EDT suspended Omepr azole 20 MG eCW1 ([facility]) Ibuprofen 800 MG Oral Tablet Ibuprofen 800 MG 02/07/2020 12:00:00 AM E DT active Ibuprofen 800 MG eCW1 ([facility]) topiramate 200 MG Oral Tablet TOPIRAMATE 01/15/2020 12:00:00 AM EDT ta blet 30 TAKE ONE TABLET BY MOUTH AT BEDTIME TAKE ONE TABLET BY MOUTH AT BEDTIME SOLD: 06/25/2020 [facility] topiramate 200 MG Oral Tablet TOPIRAMATE 01/15/2020 12:00:00 AM EDT ta blet 30 TAKE ONE TABLET BY MOUTH AT BEDTIME TAKE ONE TABLET BY MOUTH AT BEDTIME SOLD: 05/26/2020 [facility] topiramate 200 MG Oral Tablet TOPIRAMATE 01/15/2020 12:00:00 AM EDT ta blet 30 TAKE ONE TABLET BY MOUTH AT BEDTIME TAKE ONE TABLET BY MOUTH AT BEDTIME SOLD: 03/30/2020 [facility] topiramate 200 MG Oral Tablet TOPIRAMATE 01/15/2020 12:00:00 AM EDT ta blet 30 TAKE ONE TABLET BY MOUTH AT BEDTIME TAKE ONE TABLET BY MOUTH AT BEDTIME SOLD: 04/24/2020 [facility] topiramate 200 MG Oral Tablet TOPIRAMATE 01/15/2020 12:00:00 AM EDT ta blet 30 TAKE ONE TABLET BY MOUTH AT BEDTIME TAKE ONE TABLET BY MOUTH AT BEDTIME SOLD: 02/28/2020 [facility] topiramate 200 MG Oral Tablet TOPIRAMATE 01/15/2020 12:00:00 AM EDT ta blet 30 TAKE ONE TABLET BY MOUTH AT BEDTIME TAKE ONE TABLET BY MOUTH AT BEDTIME SOLD: 01/26/2020 [facility] 10 mg 01/11/2020 12:00:00 AM EDT tablet,disintegrating 8 1 AT ONSET OF MIGRAINE, MAY REPEAT ONCE IN 2 HOURS NEEDED, MAXIMUM DAILY DOSE = 2 1 AT ONSET OF MIGRAINE, MAY REPEAT ONCE IN 2 HOURS NEEDED, MAXIMUM DAILY DOSE = 2 SOLD: 01/14/2020 [facility] 875 mg 01/11/2020 12:00:00 AM EDT tablet 14 TAKE ONE TABLET BY MOUTH EVERY 12 HOURS FOR 7 DAYS TAKE ONE TABLET BY MOUTH EVERY 12 HOURS FOR 7 DAYS ALICE [facility] 10 mg 10/11/2019 12:00:00 AM EDT capsule 30 TAKE ONE CAPSULE BY MOUTH EVERY DAY IN THE EVENING TAKE ONE CAPSULE BY MOUTH EVERY DAY IN THE EVENING ALICE [facility] topiramate 200 MG Oral Tablet TOPIRAMATE 07/14/2019 12:00:00 AM EDT ta blet 30 TAKE 1 TABLET BY MOUTH ONCE DAILY AT BEDTIME MAXIMUM DAILY DOSE = 1 TAKE 1 TABLET BY MOUTH ONCE DAILY AT BEDTIME MAXIMUM DAILY DOSE = 1 SOLD: 12/26/2019 [facility] 10 mg 07/10/2019 12:00:00 AM EDT tablet,disintegrating 8 TAKE 1 TABLET BY MOUTH AT ONSET OF MIGRAINE. MAY REPEAT ONCE IN 2 HOURS NEEDED MAXIMUM DAILY DOSE = 2 TAKE 1 TABLET BY MOUTH AT ONSET OF MIGRA INE. MAY REPEAT ONCE IN 2 HOURS NEEDED MAXIMUM DAILY DOSE = 2 SOLD: 12/26/2019 [facility] rizatriptan 10 MG Disintegrating Oral Tablet RIZATRIPTAN KAREN ZOATE 07/10/2019 12:00:00 AM EDT tablet,disintegrating 8 TAKE 1 TAB LET BY MOUTH AT ONSET OF MIGRAINE. MAY REPEAT ONCE IN 2 HOURS NEEDED MAXIMUM DAILY DOSE = 2 TAKE 1 TABLET BY MOUTH AT ONSET OF MIGRAINE. MAY REPEAT ONCE IN 2 HOURS NEEDED MAXIMUM DAILY DOSE = 2 SOLD: 06/29/2020 [facility] Insurance Providers Payer name Policy type / Coverage type Policy ID Covered democrat ID Covered democrat's relationship to mari Policy Mari Plan Information Ghi FHP-(DO Not Use) Medigap Part B [id number] Self 0 [id number] [employer] [id number] [employer] (pr) Medigap Part B [id number] Family Dependent [id number] [employer] (WC) Workers Compensation [id number] Self [id number] [employer] (pr) Commercial [id number] Self [id number] UMR F [id number] SELF [id number] Umr Commercial [id number] Self [id number] UMR [facility] [id number] SP [id number] [employer] [id number] SP [id number] [employer] Commercial [id number] Self [id number] UMR [facility] [id number] SP [id number] [employer] Commercial .[id number] Self [employer] Commercial [id number] [employer] (pr) Commercial [id number] Family Dependent [employer] Commercial [id number] Family Dependent POM[employer] PPO P [id number] P [id number] POMCO [id number] SP [id number] UMR O [id number] O [id number] UMR F [id number] SELF [id number] UMR F [id number] SELF [id number] UMR F [id number] SELF [id number] Umr Commercial [id number] Self [id number] Medicaid [place] Medigap Part B [id number] .6484.0 Self [id number] Problems, Conditions, and Diagnoses Code Display Name Description Problem Type Effective Dates Data Source(s) M26.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 Le ft temporomandibular joint disorder Problem 01/22/2021 12:00:00 AM EDT MEDENT ([facility], ) [id number] Allergic asthma without status asthmatic us Allergic asthma without status asthmaticus Problem 01/21/2021 12:00:00 AM EDT MEDENT ([facility], ) F41.9 [id number] Anxiety disorder, unspecified Problem 06/27/2020 12:00:00 AM EDT eCW1 ([facility]) M54.32 [id number] Sciatica of left side Problem 05/20/2020 12: 00:00 AM EST eCW1 ([facility]) F41.9 [id number] Anxiety Problem 04/02/2020 12:00:00 AM ES T eCW1 ([facility]) F32.9 [id number] Depression, unspecified depression type P roblem 03/29/2020 12:00:00 AM EST eCW1 ([facility]) R89.9 [id number] Abnormal laboratory test result Problem 03/04/2020 12:00:00 AM EST eCW1 ([facility]) R89.9 [id number] Abnormal laboratory test Problem 03/04/2020 12:00:00 AM EST eCW1 ([facility]) Surgeries/Procedures Procedure Description Date Indications Data Source(s) OFFICE OUTPATIENT NEW 45 MINUTES 01/22/2021 12:00:00 A M EDT MEDENT ([facility]) OFFICE OUTPATIENT VISIT 25 MINUTES 10/09/2020 12:00:00 AM EDT MEDENT ([facility]) OFFICE OUTPATIENT VISIT 15 MINUTES 07/10/2020 12:00:00 AM EDT MEDENT ([facility]) Results ID Date Data Source [id number] 01/16/2021 12:50:00 PM EDT MEDENT ([facility]) Name Value Range Interpretation Code Description Data Roberta rce(s) Supporting Document(s) Surgical pathology study Laboratory test result [facility] FINAL DIAGNOSIS Rectal polyp, polypectomy: Tubular adenoma. 01/17/20211457 CLINICAL DIAGNOSIS Screening colonoscopy, family history of colon cancer 01/16/20211539 GROSS DIAGNOSIS Received in formalin labeled "rectal polyp" consists of one malagon fragment measuring 0.4 x 0.3 x 0.2 cm. All in one. -SV 01/16/20211539 Signed YUAN DE JESUS MD 01/17/2021 1525 ID Date Data Source [id number] 04/16/2020 01:58:00 PM EST [facility] Name Value Range Interpretation Code Description Data Roberta rce(s) Supporting Document(s) SARS coronavirus 2 RNA Detected [facility] This lab was ordered by [facility] and reported by [facility]. ID Date Data Source Coronavirus 2019 NOSE (Send Out) COVID 04/16/2020 12:00:00 A M EST eCW1 ([facility]) Name Value Range Interpretation Code Description Data Roberta rce(s) Supporting Document(s) This nucleic acid amplification test was developed and its CORONAVIRUS 2019 NOSE eCW1 ([facility]) ID Date Data Source PLZ SPINE LS COMPLETE 03/06/2020 12:00:00 AM EST eCW1 ([facility]) Name Value Range Interpretation Code Description Data Roberta rce(s) Supporting Document(s) PLZ SPINE LS COMPLETE eCW1 ([facility]) ID Date Data Source C REACTIVE PROTEIN QUANTITATIV (At [facility]) 03/06/2020 12:00 :00 AM EST eCW1 ([facility]) Name Value Range Interpretation Code Description Data Roberta rce(s) Supporting Document(s) 0.30 0.00-0.30 C REACTIVE PROTEIN QUANTI TATIV eCW1 ([facility]) ID Date Data Source ERYTHROCYTE SEDIMENTATION RATE 03/06/2020 12:00:00 AM EST eC W1 ([facility]) Name Value Range Interpretation Code Description Data Roberta rce(s) Supporting Document(s) 7 0-20 ERYTHROCYTE SEDIMENTATION RATE eCW1 ([facility]) ID Date Data Source UA URINALYSIS 03/06/2020 12:00:00 AM EST eCW1 ([facility]) Name Value Range Interpretation Code Description Data Roberta rce(s) Supporting Document(s) UA URINALYSIS eCW1 ([facility]) ID Date Data Source Comprehensive Metabolic Profile (CMP) 03/06/2020 12:00:00 AM EST eCW1 ([facility]) Name Value Range Interpretation Code Description Data Roberta rce(s) Supporting Document(s) 90 70-100 GLUCOSE, FASTING eCW1 ([facility]) 0.84 0.55-1.30 CREATININE FOR GFR eCW1 ([facility]) 140 136-145 SODIUM LEVEL eCW1 ([facility]) 18 7-18 BLOOD UREA NITROGEN eCW1 (Count includes the [facility]) 4.9 3.5-5.1 POTASSIUM SERUM eCW1 ([facility]) > 60.0 >58 GLOMERULAR FILTRATION RATE eCW 1 ([facility]) 27 21-32 CARBON DIOXIDE LEVEL eCW1 ([facility]) 6 7-37 AST/SGOT eCW1 ([facility]) 9.0 8.5-10.1 CALCIUM LEVEL eCW1 ([facility]) 110 98-107 CHLORIDE LEVEL eCW1 ([facility]) 15 12-78 ALT/SGPT eCW1 ([facility]) 3.5 3.2-5.2 ALBUMIN eCW1 ([facility]) 0.4 0.2-1.0 BILIRUBIN,TOTAL eCW1 ([facility]) 7.0 6.4-8.2 TOTAL PROTEIN eCW1 ([facility]) 88 45-117 ALKALINE PHOSPHATASE eCW1 ([facility]) 1.0 1.2-2.2 ALBUMIN/GLOBULIN RATIO eCW1 ([facility] ID Date Data Source CBC with Differential 03/06/2020 12:00:00 AM EST eCW1 ([facility]) Name Value Range Interpretation Code Description Data Roberta rce(s) Supporting Document(s) 4.18 4.00-5.40 RED BLOOD COUNT eCW1 ([facility]) 40.3 36.0-47.0 HEMATOCRIT eCW1 ([facility]) 5.7 4.0-10.0 WHITE BLOOD COUNT eCW1 ([facility]) 12.5 12.0-15.5 HEMOGLOBIN eCW1 ([facility]) 29.9 27.0-33.0 MEAN CORPUSCULAR HEMOGLOB IN eCW1 ([facility]) 96.4 80.0-96.0 MEAN CORPUSCULAR VOLUME e CW1 ([facility]) 31.0 32.0-36.5 MEAN CORPUSCULAR HGB CONC eCW1 ([facility]) 12.9 11.5-14.5 RED CELL DISTRIBUTION WID TH eCW1 ([facility]) 6.8 0.0-5.0 MONO % eCW1 ([facility]) 53.4 36.0-66.0 NEUTROPHILS % eCW1 ([facility]) 450 150-450 PLATELET COUNT, AUTOMATED eCW1 ([facility]) 32.5 24.0-44.0 LYMPH % eCW1 ([facility]) 3.1 1.5-8.5 NEUTROPHILS # eCW1 ([facility]) 0.9 0.0-1.0 BASO % eCW1 ([facility]) 0.4 0.0-0.8 MONO # eCW1 ([facility]) 1.9 1.5-5.0 LYMPH # eCW1 ([facility]) 5.9 0.0-3.0 EOS % eCW1 ([facility]) 0.3 0.0-0.5 EOS # eCW1 ([facility]) 0.1 0.0-0.2 BASO # eCW1 ([facility]) ID Date Data Source URINE CULTURE 02/22/2020 12:00:00 AM EST eCW1 ([facility]) Name Value Range Interpretation Code Description Data Roberta rce(s) Supporting Document(s) URINE CULTURE eCW1 ([facility]) ID Date Data Source BLOOD CULTURES 02/22/2020 12:00:00 AM EST eCW1 ([facility]) Name Value Range Interpretation Code Description Data Roberta rce(s) Supporting Document(s) BLOOD CULTURES eCW1 ([facility]) ID Date Data Source LYME DISEASE SCRN WITH CONFIRM 02/22/2020 12:00:00 AM EST eC W1 ([facility]) Name Value Range Interpretation Code Description Data Roberta rce(s) Supporting Document(s) <0.80 0.00-0.79 Lyme Disease IgM Ab Quant itati eCW1 ([facility]) <0.91 0.00-0.90 Lyme Disease IgG/IgM Anti tahir eCW1 ([facility]) ID Date Data Source [id number] 02/19/2020 12:00:00 AM EST [facility] Patient Name: SUMEET AMEZCUA [facility] Date of : 1975[place], [place] [address] Date of Exam: 02/19/2020#: Fax: [phone] EXAM: CHEST (2 VIEW) X-RAYCLINICAL INFORMATION: Cough and fever.Two views.Comparison is 05/18/2014.The superior mediastinal structures are midline. The heart is notenlarged. The diaphragmatic surfaces of the lungs are regular and thecostophrenic angles are clear. The pulmonary kline are clear. Thevisualized osseous structures are intact.IMPRESSION:There is no acute cardiopulmonary disease.JACQUE Caldwell/Parveen you for referring RUMA AMEZCUA to our office. Electronically Signed - RIN WALKER DO 02/19/20 12:02 Name Value Range Interpretation Code Description Data Roberta rce(s) Supporting Document(s) ID Date Data Source [id number] 02/14/2020 12:00:00 AM EST [facility] Name Value Range Interpretation Code Description Data Roberta rce(s) Supporting Document(s) SARS-CoV2 Rapid Antigen [facility] This lab was ordered by [facility] and reported by [facility]. Procedure Social History Code Duration Value Status Description Data Source(s ) Smoking 01/15/2021 12:00:00 AM EDT Former Smoker completed Former Smoker eCW1 ([facility]) Smoking 01/15/2021 12:00:00 AM EDT Former Smoker completed Former Smoker eCW1 ([facility]) Smoking 12/27/2020 12:00:00 AM EDT Former Smoker completed Former Smoker eCW1 ([facility]) Smoking 12/27/2020 12:00:00 AM EDT Former Smoker completed Former Smoker eCW1 ([facility]) Smoking 12/27/2020 12:00:00 AM EDT Former Smoker completed Former Smoker eCW1 ([facility]) Smoking 12/27/2020 12:00:00 AM EDT Former Smoker completed Former Smoker eCW1 ([facility]) Smoking 12/24/2020 12:00:00 AM EDT Former Smoker completed Former Smoker eCW1 ([facility]) Smoking 12/23/2020 12:00:00 AM EDT Former Smoker completed Former Smoker eCW1 ([facility]) Smoking 06/27/2020 12:00:00 AM EDT Former Smoker completed Former Smoker eCW1 ([facility]) Smoking 06/27/2020 12:00:00 AM EDT Former Smoker completed Former Smoker eCW1 ([facility]) Smoking 06/27/2020 12:00:00 AM EDT Former Smoker completed Former Smoker eCW1 ([facility]) Smoking 06/27/2020 12:00:00 AM EDT Former Smoker completed Former Smoker eCW1 ([facility]) Smoking 06/05/2020 12:00:00 AM EST Patient is a former smoker completed Patient is a former smoker 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) Smoking 05/20/2020 12:00:00 AM EST Former Smoker completed Former Smoker eCW1 ([facility]) Smoking 05/20/2020 12:00:00 AM EST Former Smoker completed Former Smoker eCW1 ([facility]) Smoking 05/20/2020 12:00:00 AM EST Former Smoker completed Former Smoker eCW1 ([facility]) Smoking 04/16/2020 12:00:00 AM EST Former Smoker completed Former Smoker eCW1 ([facility]) Smoking 04/16/2020 12:00:00 AM EST Former Smoker completed Former Smoker eCW1 ([facility]) Smoking 03/29/2020 12:00:00 AM EST Former Smoker completed Former Smoker eCW1 ([facility]) Smoking 03/29/2020 12:00:00 AM EST Former Smoker completed Former Smoker eCW1 ([facility]) Smoking 03/06/2020 12:00:00 AM EST Former Smoker completed Former Smoker eCW1 ([facility]) Smoking 02/22/2020 12:00:00 AM EST Former Smoker completed Former Smoker eCW1 ([facility]) Smoking 02/22/2020 12:00:00 AM EST Former Smoker completed Former Smoker eCW1 ([facility]) Smoking 02/07/2020 12:00:00 AM EDT Former Smoker completed Former Smoker eCW1 ([facility]) Vital Signs ID Date Data Source UNK Name Value Range Interpretation Code Description Data Source(s) Systolic blood pressure 140 mm[Hg] 140 mm[Hg] M [facility] ([facility]) Body mass index (BMI) [Ratio] 36.9 kg/m2 36.9 k g/m2 [facility] ([facility]) [place] body weight 120 [lb_av] 120 [lb_av] [facility] ([facility]) Body weight 97.524 kg 97.524 kg [facility] ([facility]) Body surface area Derived from formula 2.02 m2 2.02 m2 [facility] ([facility]) Diastolic blood pressure 84 mm[Hg] 84 mm[Hg] [facility] ([facility]) Body height 64 [in_i] 64 [in_i] [facility] ([facility]) 5'4" Body weight 215.00 [lb_av] 215.00 [lb_av] [facility] ([facility]) Heart rate 82 /min 82 /min [facility] ([facility]) Systolic blood pressure 122 mm[Hg] 122 mm[Hg] [facility] ([facility]) Diastolic blood pressure 70 mm[Hg] 70 mm[Hg] [facility] ([facility]) Oxygen saturation in Arterial blood by Pulse oximetry 98 % 98 % [facility] ([facility]) Body height 64 [in_i] 64 [in_i] [facility] ([facility]) 5'4" Body weight 214.00 [lb_av] 214.00 [lb_av] [facility] T ([facility]) Body mass index (BMI) [Ratio] 36.7 kg/m2 36.7 k g/m2 MEDENT ([facility]) [place] body weight 120 [lb_av] 120 [lb_av] MEDEN T ([facility]) Body weight 97.070 kg 97.070 kg MEDENT ([facility]) Body surface area Derived from formula 2.01 m2 2.01 m2 MEDENT ([facility]) Body weight 213.4 [lb_av] 213.4 [lb_av] eCW1 ([facility] Heart rate 80 /min 80 /min eCW1 ([facility]) Body weight 96.8 kg 96.8 kg eCW1 ([facility]) Body height [in_i] eCW1 ([facility]) Body mass index (BMI) [Ratio] 36.63 kg/m2 36.63 kg/m2 eCW1 ([facility]) Respiratory rate 18 /min 18 /min eCW1 ([facility]) Body temperature 98.5 [degF] 98.5 [degF] eCW1 ( [facility]) Systolic blood pressure 142 mm[Hg] 142 mm[Hg] e CW1 ([facility]) Diastolic blood pressure 82 mm[Hg] 82 mm[Hg] eCW1 ([facility]) Respiratory rate 18 /min 18 /min eCW1 ([facility]) Body temperature 97.9 [degF] 97.9 [degF] eCW1 ( [facility]) Systolic blood pressure 128 mm[Hg] 128 mm[Hg] e CW1 ([facility]) Diastolic blood pressure 76 mm[Hg] 76 mm[Hg] eCW1 ([facility]) Body weight 204 [lb_av] 204 [lb_av] eCW1 ([facility]) Body weight 92.53 kg 92.53 kg eCW1 ([facility]) Body height [in_i] eCW1 ([facility]) Body mass index (BMI) [Ratio] 35.01 kg/m2 35.01 kg/m2 eCW1 ([facility]) Heart rate 99 /min 99 /min eCW1 ([facility]) Body weight 207.4 [lb_av] 207.4 [lb_av] eCW1 ([facility] Body weight 94.08 kg 94.08 kg eCW1 ([facility]) Body height [in_i] eCW1 ([facility]) Body mass index (BMI) [Ratio] 35.60 kg/m2 35.60 kg/m2 eCW1 ([facility]) Heart rate 84 /min 84 /min eCW1 ([facility]) Respiratory rate 18 /min 18 /min eCW1 ([facility]) Body temperature 99.1 [degF] 99.1 [degF] eCW1 ( [facility]) Systolic blood pressure 132 mm[Hg] 132 mm[Hg] e CW1 ([facility]) Diastolic blood pressure 76 mm[Hg] 76 mm[Hg] eCW1 ([facility]) Diastolic blood pressure 84 mm[Hg] 84 mm[Hg] MEDJOHN ([facility] ) Body weight 202.00 [lb_av] 202.00 [lb_av] MEDEN T ([facility], ) Body mass index (BMI) [Ratio] 34.7 kg/m2 34.7 k g/m2 [facility], ) Body height 64 [in_i] 64 [in_i] MEDENT ([facility], ) 5'4" [place] body weight 120 [lb_av] 120 [lb_av] MEDEN T ([facility], ) Body weight 91.627 kg 91.627 kg MEDENT ([facility], ) Body surface area Derived from formula 1.96 m2 1.96 m2 MEDJOHN ([facility], ) Systolic blood pressure 124 mm[Hg] 124 mm[Hg] M EDENT ([facility], ) Systolic blood pressure 110 mm[Hg] 110 mm[Hg] M EDENT ([facility], ) Diastolic blood pressure 80 mm[Hg] 80 mm[Hg] MEDENT ([facility]) Heart rate 76 /min 76 /min MEDENT ([facility] ) Respiratory rate 16 /min 16 /min MEDENT ( [facility] ) Body weight 187 [lb_av] 187 [lb_av] eCW1 ([facility]) Body height [in_i] eCW1 ([facility]) Body mass index (BMI) [Ratio] 32.09 kg/m2 32.09 kg/m2 eCW1 ([facility]) Heart rate 82 /min 82 /min eCW1 ([facility]) Respiratory rate 18 /min 18 /min eCW1 ([facility]) Body temperature 99 [degF] 99 [degF] eCW1 ([facility]) Systolic blood pressure 128 mm[Hg] 128 mm[Hg] e CW1 ([facility]) Diastolic blood pressure 80 mm[Hg] 80 mm[Hg] eCW1 ([facility]) Systolic blood pressure 118 mm[Hg] 118 mm[Hg] M EDENT ([employer]) Diastolic blood pressure 76 mm[Hg] 76 mm[Hg] MEDENT ([facility] [facility] [employer]) Body height 63.5 [in_i] 63.5 [in_i] MEDENT ([facility] [employer]) 5'3.50" Body weight 183.00 [lb_av] 183.00 [lb_av] MEDEN T ([employer]) Body mass index (BMI) [Ratio] 31.9 kg/m2 31.9 k g/m2 MED[facility] ([employer]) Body surface area Derived from formula 1.87 m2 1.87 m2 MED[facility] ([employer]) Body weight 179 [lb_av] 179 [lb_av] eCW1 ([facility]) Body height [in_i] eCW1 ([facility]) Body mass index (BMI) [Ratio] 30.72 kg/m2 30.72 kg/m2 eCW1 ([facility]) Heart rate 110 /min 110 /min eCW1 ([facility]) Respiratory rate 18 /min 18 /min eCW1 ([facility]) Body temperature 99.1 [degF] 99.1 [degF] eCW1 ( [facility]) Systolic blood pressure 122 mm[Hg] 122 mm[Hg] e CW1 ([facility]) Diastolic blood pressure 78 mm[Hg] 78 mm[Hg] eCW1 ([facility]) Body weight 181 [lb_av] 181 [lb_av] eCW1 ([facility]) Body height [in_i] eCW1 ([facility]) Body mass index (BMI) [Ratio] 31.07 kg/m2 31.07 kg/m2 eCW1 ([facility]) Heart rate 95 /min 95 /min eCW1 ([facility]) Respiratory rate 16 /min 16 /min eCW1 ([facility]) Body temperature 98.8 [degF] 98.8 [degF] eCW1 ( [facility]) Systolic blood pressure 114 mm[Hg] 114 mm[Hg] e CW1 ([facility]) Diastolic blood pressure 76 mm[Hg] 76 mm[Hg] eCW1 ([facility]) Body weight 182 [lb_av] 182 [lb_av] eCW1 ([facility]) Body height [in_i] eCW1 ([facility]) Body mass index (BMI) [Ratio] 31.24 kg/m2 31.24 kg/m2 eCW1 ([facility]) Heart rate 103 /min 103 /min eCW1 ([facility]) Respiratory rate 18 /min 18 /min eCW1 ([facility]) Body temperature 98.2 [degF] 98.2 [degF] eCW1 ( [facility]) Systolic blood pressure 120 mm[Hg] 120 mm[Hg] e CW1 ([facility]) Diastolic blood pressure 74 mm[Hg] 74 mm[Hg] eCW1 ([facility]) Body weight 181 [lb_av] 181 [lb_av] eCW1 ([facility]) Body height [in_i] eCW1 ([facility]) Body mass index (BMI) [Ratio] 31.07 kg/m2 31.07 kg/m2 eCW1 ([facility]) Heart rate 97 /min 97 /min eCW1 ([facility]) Respiratory rate 18 /min 18 /min eCW1 ([facility]) Body temperature 99.2 [degF] 99.2 [degF] eCW1 ( [facility]) Systolic blood pressure 118 mm[Hg] 118 mm[Hg] e CW1 ([facility]) Diastolic blood pressure 78 mm[Hg] 78 mm[Hg] eCW1 ([facility]) Body weight 182 [lb_av] 182 [lb_av] eCW1 ([facility]) Body height [in_i] eCW1 ([facility]) Body mass index (BMI) [Ratio] 31.24 kg/m2 31.24 kg/m2 eCW1 ([facility]) Heart rate 90 /min 90 /min eCW1 ([facility]) Respiratory rate 18 /min 18 /min eCW1 ([facility]) Body temperature 99.4 [degF] 99.4 [degF] eCW1 ( [facility]) Systolic blood pressure 136 mm[Hg] 136 mm[Hg] e CW1 ([facility]) Diastolic blood pressure 84 mm[Hg] 84 mm[Hg] eCW1 ([facility]) Patient Treatment Plan of Care Planned Activity Planned Date Details Description Data Source (s) Prednisone 10 MG Oral Tablet 12/27/2020 12:00:00 AM EDT eCW1 ([facility]) Prednisone 10 MG Oral Tablet 12/27/2020 12:00:00 AM EDT eCW1 ([facility]) Prednisone 10 MG Oral Tablet 12/27/2020 12:00:00 AM EDT eCW1 ([facility]) Prednisone 10 MG Oral Tablet 12/27/2020 12:00:00 AM EDT eCW1 ([facility]) Fluconazole 150 MG Oral Tablet [Diflucan] 12/24/2020 12:00:00 AM ED T eCW1 ([facility]) Amoxicillin 250 MG Oral Capsule 12/24/2020 12:00:00 AM EDT eCW1 ([facility]) Ciprofloxacin 3 MG/ML / Dexamethasone 1 MG/ML Otic Zuly pension 12/24/2020 12:00:00 AM EDT eCW1 ([facility]) Cyclobenzaprine hydrochloride 10 MG Oral Tablet 05/20/2020 12:00:00 AM EST eCW1 ([facility]) Cyclobenzaprine hydrochloride 10 MG Oral Tablet 05/20/2020 12:00:00 AM EST eCW1 ([facility]) Cyclobenzaprine hydrochloride 10 MG Oral Tablet 05/20/2020 12:00:00 AM EST eCW1 ([facility]) Cyclobenzaprine hydrochloride 10 MG Oral Tablet 05/20/2020 12:00:00 AM EST eCW1 ([facility]) Cyclobenzaprine hydrochloride 10 MG Oral Tablet 05/20/2020 12:00:00 AM EST eCW1 ([facility]) Prednisone 20 MG Oral Tablet 05/20/2020 12:00:00 AM EST eCW1 ([facility]) Prednisone 20 MG Oral Tablet 05/20/2020 12:00:00 AM EST eCW1 ([facility]) Cyclobenzaprine hydrochloride 10 MG Oral Tablet 05/20/2020 12:00:00 AM EST eCW1 ([facility]) Prednisone 20 MG Oral Tablet 05/20/2020 12:00:00 AM EST eCW1 ([facility]) Cyclobenzaprine hydrochloride 10 MG Oral Tablet 05/20/2020 12:00:00 AM EST eCW1 ([facility]) Escitalopram 10 MG Oral Tablet [Lexapro] 03/29/2020 12:00:00 AM EST eCW1 ([facility]) Escitalopram 10 MG Oral Tablet [Lexapro] 03/29/2020 12:00:00 AM EST eCW1 ([facility]) Escitalopram 10 MG Oral Tablet [Lexapro] 03/29/2020 12:00:00 AM EST eCW1 ([facility]) Escitalopram 10 MG Oral Tablet [Lexapro] 03/29/2020 12:00:00 AM EST eCW1 ([facility]) Escitalopram 10 MG Oral Tablet [Lexapro] 03/29/2020 12:00:00 AM EST eCW1 ([facility]) Escitalopram 10 MG Oral Tablet [Lexapro] 03/29/2020 12:00:00 AM EST eCW1 ([facility]) Escitalopram 10 MG Oral Tablet [Lexapro] 03/29/2020 12:00:00 AM EST eCW1 ([facility]) Escitalopram 10 MG Oral Tablet [Lexapro] 03/29/2020 12:00:00 AM EST eCW1 ([facility]) Ciprofloxacin 500 MG Oral Tablet [Cipro] 02/22/2020 12:00:00 AM EST eCW1 ([facility]) Ciprofloxacin 500 MG Oral Tablet [Cipro] 02/22/2020 12:00:00 AM EST eCW1 ([facility]) Cyclobenzaprine hydrochloride 10 MG Oral Tablet 02/07/2020 12:00:00 AM EDT eCW1 ([facility]) Omeprazole 20 MG Delayed Release Oral Capsule 02/07/2020 12:00:00 A M EDT eCW1 ([facility]) Cyclobenzaprine hydrochloride 10 MG Oral Tablet 02/07/2020 12:00:00 AM EDT eCW1 ([facility]) Ibuprofen 800 MG Oral Tablet 02/07/2020 12:00:00 AM EDT eCW1 ([facility])
[2021-02-21 12:10] LABS: BASO # 0.1 10^3/uL (0.0-0.2); BASO % 0.6 % (0.0-1.0); EOS # 0.5 10^3/uL (0.0-0.5); EOS % 4.5 % (0.0-3.0); HEMATOCRIT 41.6 % (36.0-47.0); HEMOGLOBIN 13.6 g/dl (12.0-15.5); LYMPH # 1.6 10^3/uL (1.5-5.0); LYMPH % 16.1 % (24.0-44.0); MEAN CORPUSCULAR HEMOGLOBIN 30.5 pg (27.0-33.0); MEAN CORPUSCULAR HGB CONC 32.7 g/dl (32.0-36.5); MEAN CORPUSCULAR VOLUME 93.3 fl (80.0-96.0); MONO # 0.5 10^3/uL (0.0-0.8); MONO % 5.3 % (2.0-8.0); NEUTROPHILS # 7.3 10^3/uL (1.5-8.5); NEUTROPHILS % 72.8 % (36.0-66.0); PLATELET COUNT, AUTOMATED 252 10^3/uL (150-450); RED BLOOD COUNT 4.46 10^6/uL (4.00-5.40)
--- NOTE | 2021-02-21 12:28 | REP ---
INDICATION: CHEST PAIN. COMPARISON: 02/19/2020 TECHNIQUE: AP portable seated, somewhat lordotic projection. FINDINGS: Lungs are well inflated. There is no pleural effusion, lateral pleural thickening, infiltrate, atelectasis or mass. Heart not enlarged for this lordotic AP portable. There is no vascular redistribution or edema. Aorta and airway intact. Bones with some minor degenerative changes but no focal lesion. No free air under the diaphragm. IMPRESSION: No acute cardiopulmonary change. <Electronically signed by Delbert Correa > 02/21/21 [id number]
[2021-02-21 12:38] LABS: CK-MB VALUE MASS 1.2 NG/ML (<3.6); CPK CREATINE PHOSPHOKINASE 61 U/L (26-192); MB/CK RELATIVE INDEX 1.97 (< OR =4); TROPONIN I < 0.02 NG/ML (< 0.10)
[2021-02-21 12:48] LABS: BLOOD UREA NITROGEN 22 MG/DL (7-18); CALCIUM LEVEL 8.8 MG/DL (8.5-10.1); CARBON DIOXIDE LEVEL 24 MEQ/L (21-32); CHLORIDE LEVEL 110 MEQ/L (98-107); CREATININE FOR GFR 0.84 MG/DL (0.55-1.30); GLOMERULAR FILTRATION RATE > 60.0 (>58); GLUCOSE, FASTING 97 MG/DL (70-100); POTASSIUM SERUM 3.4 MEQ/L (3.5-5.1); SODIUM LEVEL 141 MEQ/L (136-145)
[2021-02-21 12:56] LABS: RSV AMPLIFICATION NEGATIVE (NEGATIVE)
[2021-02-21] MEDS ORDERED: ISOVUE-370 76% 100ML VIAL As Ordered ONE (13:07)
--- OUTSIDE RECORDS SUMMARY | 2021-02-21 13:11 | CCD ---
Author Author [facility] Organization [facility] Address Unknown Phone Unavailable Care Team Providers Care Accounting Software Specialist Name Role Phone Isai GLEZ MD Unavailable [...] GLEZ, L UZAIR MD Unavailable Unavailable Isai GLEZ MD Unavailable Unavailable Isai GLEZ MD Unavailable Unavailable Isai GLEZ MD Unavailable Unavailable Isai GLZE MD Unavailable Unavailable Isai GLEZ MD Unavailable Unavailable Isai GLEZ MD Unavailable Unavailable Isai GLEZ MD Unavailable Unavailable Isai GLEZ MD Unavailable Unavailable Isai GLEZ MD Unavailable Unavailable Isai GLEZ MD Unavailable Unavailable Isai GLEZ MD Unavailable Unavailable Iasi GLEZ MD Unavailable Unavailable Isai GLEZ MD [...] Mesha Winters PH.D., M.D. Unavailable Unavailable Karson, eMsha Winters PH.D., M.D. Unavailable Unavailable Karson, Mesha [...] is protected by Article 27-F of the [facility] Public Health law. If you continue you may have access to information: Regarding HIV / AIDS; Provided by facilities licensed or operated by the [facility] Office of Mental Health; or Provided by the [facility] Office for People With Developmental Disabilities. If such information is present, then the following [facility] mandated warning applies: This information has been [...] law may result in a fine or care home sentence or both. A general authorization for the release of medical or other information is NOT sufficient authorization for further disc losure. Family History Family Member Name Family Member Gender Family Member Status Date o f Status Description Data Source(s) Unknown Unknown Problem MEDENT ([employer]) Unknown Unknown Problem MEDENT ([facility] Unknown Female Encounters Encounter Providers Location Date Indications Data Source(s ) Unknown [address] [place] [id number] 02/05/2021 12:00:00 AM EDT eCW1 ([facility]) Outpatient Attender: Singh Ty PH.D., M.D. Jaswant/Leilani/Martinez casanova/Kody 01/22/2021 02:45:00 PM EDT MEDENT ([facility]) Outpatient [address] [place] [phone] 01/15/2021 12:00:00 AM EDT eCW1 ([facility]) Unknown [address] [place] [address] [place] [phone] 01/14/2021 12:00:00 AM EDT eCW1 ([facility]) Outpatient [address] [place] [address] Y [phone] 12/27/2020 12:00:00 AM EDT eCW1 ([facility]) Unknown [address] [place] [phone] 12/26/2020 12:00:00 AM EDT eCW1 ([facility]) [place] [address] [facility] [address] 12/24/2020 12:00:00 AM EDT eCW1 ([facility]) [place] [address] [facility] [address] 12/24/2020 12:00:00 AM EDT eCW1 ([facility]) [place] [address] [facility] [address] 12/23/2020 12:00:00 AM EDT eCW1 ([facility]) [place] [address] [facility] [address] 10/15/2020 12:00:00 AM EDT eCW1 ([facility]) Outpatient Attender: Kimberly MITCHELL [facility] 10/09/2020 08:00:00 AM EDT MEDENT ([facility]) [place] [address] [facility] [address] 08/29/2020 12:00:00 AM EDT eCW1 ([facility]) Outpatient Attender: Kimberly MITCHELL 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 EST MEDENT ([employer] [facility] [employer]) [place] [address] [facility] [address] 05/20/2020 12:00:00 AM EST eCW1 ([facility]) [place] [address] [facility] [address] 04/18/2020 12:00:00 AM EST eCW1 ([facility]) [place] [address] [facility] [address] 04/16/2020 12:00:00 AM EST eCW1 ([facility]) [place] [address] [facility] [address] 03/29/2020 12:00:00 AM EST eCW1 ([facility]) [place] [address] [facility] [address] 03/28/2020 12:00:00 AM EST eCW1 ([facility]) [place] [address] [facility] [address] 03/06/2020 12:00:00 AM EST eCW1 ([facility]) [place] [address] [facility] [address] 02/22/2020 12:00:00 AM EST eCW1 ([facility]) [place] [address] [facility] [address] 02/22/2020 12:00:00 AM EST eCW1 ([facility]) Outpatient Attender: Kimberly MITCHELL [facility] 02/21/2020 12:45:00 PM EST MEDENT ([facility]) [place] [address] [facility] [address] 02/07/2020 12:00:00 AM EDT eCW1 ([facility]) [place] [address] [facility] [address] 02/07/2020 12:00:00 AM EDT eCW1 ([facility]) Outpatient Attender: Kimberly MICTHELL [facility] 01/10/2020 08:15:00 AM EDT MEDENT ([facility] aNrayanan) Immunizations Vaccine Date Status Description Data Source(s) Pfizer #2 dose COVID-19 (given elsewhere) SARSCOV2 VAC 30MCG/0.3ML IM 07/10/2020 07:28:00 AM EDT completed eCW1 ([facility]) Pfizer #2 dose COVID-19 (given elsewhere) SARSCOV2 VAC 30MCG/0.3ML IM 07/10/2020 07:28:00 AM EDT completed eCW1 ([facility]) Pfizer #2 dose COVID-19(given elsewhere) SARSCOV2 VAC 30MCG/0.3ML IM 07/10/2020 07:28:00 AM EDT completed eCW1 ([facility]) Pfizer #2 dose COVID-19(given elsewhere) SARSCOV2 VAC 30MCG/0.3ML IM 07/10/2020 07:28:00 AM EDT completed eCW1 ([facility]) Pfizer #2 dose COVID-19(given elsewhere) SARSCOV2 VAC 30MCG/0.3ML IM 07/10/2020 07:28:00 AM EDT completed eCW1 ([facility]) Pfizer #2 dose COVID-19(given elsewhere) SARSCOV2 VAC 30MCG/0.3ML IM 07/10/2020 07:28:00 AM EDT completed eCW1 ([facility]) Pfizer #2 dose COVID-19(given elsewhere) SARSCOV2 VAC 30MCG/0.3ML IM 07/10/2020 07:28:00 AM EDT completed eCW1 ([facility]) COVID-19 VACCINE Pfizer 07/10/2020 12:00:00 AM EDT completed [employer] Vaccine Series Complete: YESThis Data wa s Submitted to [facility] Via [employer]. Pfizer #1 dose COVID-19 (given elsewhere) SARSCOV2 VAC 30MCG/0.3ML IM 06/19/2020 07:27:00 AM EST completed eCW1 ([facility]) Pfizer #1 dose COVID-19 (given elsewhere) SARSCOV2 VAC 30MCG/0.3ML IM 06/19/2020 07:27:00 AM EST completed eCW1 ([facility]) Pfizer #1 dose COVID-19(given elsewhere) SARSCOV2 VAC 30MCG/0.3ML IM 06/19/2020 07:27:00 AM EST completed eCW1 ([facility]) Pfizer #1 dose COVID-19(given elsewhere) SARSCOV2 VAC 30MCG/0.3ML IM 06/19/2020 07:27:00 AM EST completed eCW1 ([facility]) Pfizer #1 dose COVID-19(given elsewhere) SARSCOV2 VAC 30MCG/0.3ML IM 06/19/2020 07:27:00 AM EST completed eCW1 ([facility]) Pfizer #1 dose COVID-19(given elsewhere) SARSCOV2 VAC 30MCG/0.3ML IM 06/19/2020 07:27:00 AM EST completed eCW1 ([facility]) Pfizer #1 dose COVID-19(given elsewhere) SARSCOV2 VAC 30MCG/0.3ML IM 06/19/2020 07:27:00 AM EST completed eCW1 ([facility]) COVID-19 VACCINE Pfizer 06/19/2020 12:00:00 AM EST completed [employer] Vaccine Series Complete: NOThis Data was Submitted to [facility] Via [employer]. Medications Medication Brand Name Start Date Product Form Dose Route Admi nistrative Instructions Pharmacy Instructions Status Indications Reaction Description Data Source(s) POLYETHYLENE GLYCOL 3350 142 MG/ML Oral Solution [Miralax] M iralax 02/14/2021 12:00:00 AM EDT active M EDENT ([facility], ) Bisacodyl 5 MG Delayed Release Oral Tablet [Dulcolax] Dulcol ax 02/14/2021 12:00:00 AM EDT ORAL active M EDENT ([facility], ) Cyclobenzaprine hydrochloride 10 MG Oral [...] {tablets} active p redniSONE 10 MG eCW1 ([facility]) Prednisone 10 MG Oral Tablet predniSONE 10 MG predniSONE 10 MG 12/27/2020 12:00:00 AM EDT 3.0 {tablets} active p redniSONE 10 MG eCW1 ([facility]) Prednisone 10 MG Oral Tablet predniSONE 10 MG predniSONE 10 MG 12/27/2020 12:00:00 AM EDT 3.0 {tablets} active p redniSONE 10 MG eCW1 ([facility]) Prednisone 10 MG Oral Tablet predniSONE 10 MG predniSONE 10 MG 12/27/2020 12:00:00 AM EDT 3.0 {tablets} active p redniSONE 10 MG eCW1 ([facility]) Prednisone 10 MG Oral Tablet predniSONE 10 MG predniSONE 10 MG 12/27/2020 12:00:00 AM EDT 3.0 {tablets} active p redniSONE 10 MG eCW1 ([facility]) Prednisone 10 MG Oral Tablet predniSONE 10 MG predniSONE 10 MG 12/27/2020 12:00:00 AM EDT 3.0 {tablets} active p redniSONE 10 MG eCW1 ([facility]) Amoxicillin 250 MG Oral Capsule Amoxicillin 250 MG 12/24/2020 12:00 :00 AM EDT active Amoxicillin 250 MG eCW1 ([facility]) Fluconazole 150 MG Oral Tablet [Diflucan] Diflucan 150 MG Di flucan 150 MG 12/24/2020 12:00:00 AM EDT 1.0 {tablet} active Diflucan 150 MG eCW1 ([facility]) Ciprofloxacin 3 MG/ML / Dexamethasone 1 MG/ML Otic Suspension Ciprofloxacin- Dexamethasone 0.3-0.1 % Ciprofloxacin-Dexamethasone 0.3-0.1 % 12/24/2020 12:00:00 AM EDT active Ciproflo xacin-Dexamethasone 0.3-0.1 % eCW1 ([facility]) Amoxicillin 250 MG Oral Capsule Amoxicillin 250 MG 12/24/2020 12:00 :00 AM EDT active Amoxicillin 250 MG eCW1 ([facility]) Fluconazole 150 MG Oral Tablet [Diflucan] Diflucan 150 MG Di flucan 150 MG 12/24/2020 12:00:00 AM EDT 1.0 {tablet} active Diflucan 150 MG eCW1 ([facility]) Fluconazole 150 MG Oral Tablet [Diflucan] Diflucan 150 MG Di flucan 150 MG 12/24/2020 12:00:00 AM EDT 1.0 {tablet} active Diflucan 150 MG eCW1 ([facility]) 250 mg 12/24/2020 12:00:00 AM EDT capsule 40 TAKE ONE CAPSULE BY MOUTH FOUR TIMES A DAY FOR 10 DAYS TAKE ONE CAPSULE BY MOUTH FOUR TIMES A DAY FOR 10 DAYS SOLD: 12/24/2020 [facility] Amoxicillin 250 MG Oral Capsule Amoxicillin 250 MG 12/24/2020 12:00 :00 AM EDT active Amoxicillin 250 MG eCW1 ([facility]) Amoxicillin 250 MG Oral Capsule Amoxicillin 250 MG 12/24/2020 12:00 :00 AM EDT active Amoxicillin 250 MG eCW1 ([facility]) Amoxicillin 250 MG Oral Capsule Amoxicillin 250 MG 12/24/2020 12:00 :00 AM EDT active Amoxicillin 250 MG eCW1 ([facility]) Fluconazole 150 MG Oral Tablet [Diflucan] Diflucan 150 MG Di flucan 150 MG 12/24/2020 12:00:00 AM EDT 1.0 {tablet} active Diflucan 150 MG eCW1 ([facility]) Ciprofloxacin 3 MG/ML / Dexamethasone 1 MG/ML Otic Suspension Ciprofloxacin- Dexamethasone 0.3-0.1 % Ciprofloxacin-Dexamethasone 0.3-0.1 % 12/24/2020 12:00:00 AM EDT active Ciproflo xacin-Dexamethasone 0.3-0.1 % eCW1 ([facility]) Fluconazole 150 MG Oral Tablet [Diflucan] Diflucan 150 MG Di flucan 150 MG 12/24/2020 12:00:00 AM EDT 1.0 {tablet} active Diflucan 150 MG eCW1 ([facility]) Ciprofloxacin 3 MG/ML / Dexamethasone 1 MG/ML Otic Suspension Ciprofloxacin- Dexamethasone 0.3-0.1 % Ciprofloxacin-Dexamethasone 0.3-0.1 % 12/24/2020 12:00:00 AM EDT active Ciproflo xacin-Dexamethasone 0.3-0.1 % eCW1 ([facility]) Ciprofloxacin 3 MG/ML / Dexamethasone 1 MG/ML Otic Suspension Ciprofloxacin- Dexamethasone 0.3-0.1 % Ciprofloxacin-Dexamethasone 0.3-0.1 % 12/24/2020 12:00:00 AM EDT active Ciproflo xacin-Dexamethasone 0.3-0.1 % eCW1 ([facility]) 150 mg 12/24/2020 12:00:00 AM EDT tablet 2 TAKE ONE TABLET BY MOUTH NOW AND REPEAT IN 2 DAYS TAKE ONE TABLET BY MOUTH NOW AND REPEAT IN 2 DAYS SOLD : 12/27/2020 [facility] Ciprofloxacin 3 MG/ML / Dexamethasone 1 MG/ML Otic Suspension Ciprofloxacin- Dexamethasone 0.3-0.1 % Ciprofloxacin-Dexamethasone 0.3-0.1 % 12/24/2020 12:00:00 AM EDT active Ciproflo xacin-Dexamethasone 0.3-0.1 % eCW1 ([facility]) Fluconazole 150 MG Oral Tablet [Diflucan] Diflucan 150 MG Di flucan 150 MG 12/24/2020 12:00:00 AM EDT 1.0 {tablet} active Diflucan 150 MG eCW1 ([facility]) Escitalopram 10 MG Oral Tablet ESCITALOPRAM OXALATE 12/24/2020 1 2:00:00 AM EDT tablet 90 TAKE ONE TABLET BY MOUTH EVERY D AY TAKE ONE TABLET BY MOUTH EVERY DAY SOLD: 12/24/2020 [facility] Ciprofloxacin 3 MG/ML / Dexamethasone 1 MG/ML Otic Suspension Ciprofloxacin- Dexamethasone 0.3-0.1 % Ciprofloxacin-Dexamethasone 0.3-0.1 % 12/24/2020 12:00:00 AM EDT active Ciproflo xacin-Dexamethasone 0.3-0.1 % eCW1 ([facility]) Ciprofloxacin 3 MG/ML / Dexamethasone 1 MG/ML Otic Suspension Ciprofloxacin- Dexamethasone 0.3-0.1 % Ciprofloxacin-Dexamethasone 0.3-0.1 % 12/24/2020 12:00:00 AM EDT active Ciproflo xacin-Dexamethasone 0.3-0.1 % eCW1 ([facility]) Amoxicillin 250 MG Oral Capsule Amoxicillin 250 MG 12/24/2020 12:00 :00 AM EDT active Amoxicillin 250 MG eCW1 ([facility]) 0.3-0.1 % 12/24/2020 12:00:00 AM EDT [...] 1.0 {tablet} active Diflucan 150 MG eCW1 ([facility]) Amoxicillin 250 MG Oral Capsule Amoxicillin 250 MG 12/24/2020 12:00 :00 AM EDT active Amoxicillin 250 MG eCW1 ([facility]) Bisacodyl 5 MG Delayed Release Oral Tablet [Dulcolax] Dulcol ax 12/03/2020 12:00:00 AM EDT ORAL completed MEDENT ([facility]) Sutab Sutab 12/03/2020 12:00:00 AM EDT completed MEDENT ([facility]) 1.479-0.188- 0.225 gram 12/03/2020 12:00:00 [...] active Cyclobenzaprine HCl 10 MG eCW1 ( [facility]) Prednisone 20 MG Oral Tablet PredniSONE 20 MG PredniSONE 20 MG 05/20/2020 12:00:00 AM EST 1.0 {tablet} active Pr edniSONE 20 MG eCW1 ([facility]) Prednisone 20 MG Oral Tablet PredniSONE 20 MG PredniSONE 20 MG 05/20/2020 12:00:00 AM EST 1.0 {tablet} active Pr edniSONE 20 MG eCW1 ([facility]) 20 mg 05/20/2020 12:00:00 AM EST tablet 10 TAKE ONE TABLET BY MOUTH TWICE A DAY FOR 5 DAYS TAKE ONE TABLET BY MOUTH TWICE A DAY FOR 5 DAYS SOLD: 2020 [email or web address] Cyclobenzaprine hydrochloride 10 MG Oral Tablet Cyclob enzaprine HCl 10 MG Cyclobenzaprine HCl 10 MG 05/20/2020 12:00:00 AM EST 1.0 {tablet} active Cyclobenzaprine HCl 10 MG eCW1 ( [facility]) Cyclobenzaprine hydrochloride 10 MG Oral Tablet Cyclob enzaprine HCl 10 MG Cyclobenzaprine HCl 10 MG 05/20/2020 12:00:00 AM EST 1.0 {tablet} active Cyclobenzaprine HCl 10 MG eCW1 ( [facility]) Cyclobenzaprine hydrochloride 10 MG Oral Tablet Cyclob enzaprine HCl 10 MG Cyclobenzaprine HCl 10 MG 05/20/2020 12:00:00 AM EST 1.0 {tablet} active Cyclobenzaprine HCl 10 MG eCW1 ( [facility]) Cyclobenzaprine hydrochloride 10 MG Oral Tablet [...] active Cyclobenzaprine HCl 10 MG eCW1 ( [facility]) Prednisone 20 MG Oral Tablet PredniSONE 20 MG PredniSONE 20 MG 05/20/2020 12:00:00 AM EST 1.0 {tablet} active Pr edniSONE 20 MG eCW1 ([facility]) Cyclobenzaprine hydrochloride 10 MG Oral Tablet Cyclob enzaprine HCl 10 MG Cyclobenzaprine HCl 10 MG 05/20/2020 12:00:00 AM EST 1.0 {tablet} active Cyclobenzaprine HCl 10 MG eCW1 ( [facility]) Cyclobenzaprine hydrochloride 10 MG Oral Tablet Cyclob enzaprine HCl 10 MG Cyclobenzaprine HCl 10 MG 05/20/2020 12:00:00 AM EST 1.0 {tablet} active Cyclobenzaprine HCl 10 MG eCW1 ( [facility]) Cyclobenzaprine hydrochloride 10 MG Oral Tablet Cyclob enzaprine HCl 10 MG Cyclobenzaprine HCl 10 MG 05/20/2020 12:00:00 AM EST 1.0 {tablet} active Cyclobenzaprine HCl 10 MG eCW1 ( [facility]) Escitalopram 10 MG Oral Tablet ESCITALOPRAM [...] {tablet} active Le xapro 10 MG eCW1 ([facility]) Escitalopram 10 MG Oral Tablet [Lexapro] Lexapro 10 MG Lexap ro 10 MG 03/29/2020 12:00:00 AM EST 1.0 {tablet} active Le xapro 10 MG eCW1 ([facility]) Escitalopram 10 MG Oral Tablet [Lexapro] Lexapro 10 MG Lexap ro 10 MG 03/29/2020 12:00:00 AM EST 1.0 {tablet} active Le xapro 10 MG eCW1 ([facility]) Escitalopram 10 MG Oral Tablet [Lexapro] Lexapro 10 MG Lexap ro 10 MG 03/29/2020 12:00:00 AM EST 1.0 {tablet} active Le xapro 10 MG eCW1 ([facility]) Escitalopram 10 MG Oral Tablet [Lexapro] Lexapro 10 MG Lexap ro 10 MG 03/29/2020 12:00:00 AM EST 1.0 {tablet} active Le xapro 10 MG eCW1 ([facility]) Escitalopram 10 MG Oral Tablet [Lexapro] Lexapro 10 MG Lexap ro 10 MG 03/29/2020 12:00:00 AM EST 1.0 {tablet} active Le xapro 10 MG eCW1 ([facility]) Escitalopram 10 MG Oral Tablet [Lexapro] Lexapro 10 MG Lexap ro 10 MG 03/29/2020 12:00:00 AM EST 1.0 {tablet} active Le xapro 10 MG eCW1 ([facility]) Escitalopram 10 MG Oral Tablet [Lexapro] Lexapro 10 MG Lexap ro 10 MG 03/29/2020 12:00:00 AM EST 1.0 {tablet} active Le xapro 10 MG eCW1 ([facility]) Escitalopram 10 MG Oral Tablet [Lexapro] Lexapro 10 MG Lexap ro 10 MG 03/29/2020 12:00:00 AM EST 1.0 {tablet} active Le xapro 10 MG eCW1 ([facility]) Escitalopram 10 MG Oral Tablet [Lexapro] Lexapro 10 MG Lexap ro 10 MG 03/29/2020 12:00:00 AM EST 1.0 {tablet} active Le xapro 10 MG eCW1 ([facility]) Escitalopram 10 MG Oral Tablet [Lexapro] Lexapro 10 MG Lexap ro 10 MG 03/29/2020 12:00:00 AM EST 1.0 {tablet} active Le xapro 10 MG eCW1 ([facility]) Escitalopram 10 MG Oral Tablet [Lexapro] Lexapro 10 MG Lexap ro 10 MG 03/29/2020 12:00:00 AM EST 1.0 {tablet} active Le xapro 10 MG eCW1 ([facility]) Cyclobenzaprine hydrochloride 10 MG Oral Tablet [...] 1.0 {tablet} suspended Cipro 500 MG eCW1 ([facility]) Ciprofloxacin 500 MG Oral Tablet [Cipro] Cipro 500 MG Cipro 500 MG 02/22/2020 12:00:00 AM EST 1.0 {tablet} suspended Cipro 500 MG eCW1 ([facility]) Ciprofloxacin 500 MG Oral Tablet [Cipro] Cipro 500 MG Cipro 500 MG 02/22/2020 12:00:00 AM EST 1.0 {tablet} active Ci pro 500 MG eCW1 ([facility]) Ciprofloxacin 500 MG Oral Tablet [Cipro] Cipro 500 MG Cipro 500 MG 02/22/2020 12:00:00 AM EST 1.0 {tablet} suspended Cipro 500 MG eCW1 ([facility]) Ciprofloxacin 500 MG Oral Tablet [Cipro] Cipro 500 MG Cipro 500 MG 02/22/2020 12:00:00 AM EST 1.0 {tablet} suspended Cipro 500 MG eCW1 ([facility]) Ciprofloxacin 500 MG Oral Tablet [Cipro] Cipro 500 MG Cipro 500 MG 02/22/2020 12:00:00 AM EST 1.0 {tablet} suspended Cipro 500 MG eCW1 ([facility]) Ciprofloxacin 500 MG Oral Tablet [Cipro] Cipro 500 MG Cipro 500 MG 02/22/2020 12:00:00 AM EST 1.0 {tablet} active Ci pro 500 MG eCW1 ([facility]) Ciprofloxacin 500 MG Oral Tablet [Cipro] Cipro 500 MG Cipro 500 MG 02/22/2020 12:00:00 AM EST 1.0 {tablet} suspended Cipro 500 MG eCW1 ([facility]) Ciprofloxacin 500 MG Oral Tablet [Cipro] Cipro 500 MG Cipro 500 MG 02/22/2020 12:00:00 AM EST 1.0 {tablet} suspended Cipro 500 MG eCW1 ([facility]) 500 mg 02/22/2020 12:00:00 AM EST tablet 14 TAKE ONE TABLET BY MOUTH EVERY 12 HOURS FOR 7 DAYS TAKE ONE TABLET BY MOUTH EVERY 12 HOURS FOR 7 DAYS ALICE [facility] Ciprofloxacin 500 MG Oral Tablet [Cipro] Cipro 500 MG Cipro 500 MG 02/22/2020 12:00:00 AM EST 1.0 {tablet} suspended Cipro 500 MG eCW1 ([facility]) Omeprazole 20 MG Delayed Release Oral Capsule Omeprazole 20 MG 02/07/2020 12:00:00 AM EDT active Omeprazo le 20 MG eCW1 ([facility]) Ibuprofen 800 MG Oral Tablet Ibuprofen 800 MG 02/07/2020 12:00:00 AM E DT active Ibuprofen 800 MG eCW1 ([facility]) Ibuprofen 800 MG Oral Tablet Ibuprofen 800 MG 02/07/2020 12:00:00 AM E DT active Ibuprofen 800 MG eCW1 ([facility]) 800 mg 02/07/2020 12:00:00 AM EDT tablet 30 TAKE ONE TABLET BY MOUTH THREE TIMES A DAY WITH MILK OR FOOD NEEDED TAKE ONE TABLET BY MOUTH THREE TIMES A DAY WITH MILK OR FOOD NEEDED SOLD: 02/07/2020 [facility] Ibuprofen 800 MG Oral Tablet Ibuprofen 800 MG 02/07/2020 12:00:00 AM E DT active Ibuprofen 800 MG eCW1 ([facility]) Ibuprofen 800 MG Oral Tablet Ibuprofen 800 MG 02/07/2020 12:00:00 AM E DT active Ibuprofen 800 MG eCW1 ([facility]) Ibuprofen 800 MG Oral Tablet Ibuprofen 800 MG 02/07/2020 12:00:00 AM E DT active Ibuprofen 800 MG eCW1 ([facility]) Omeprazole 20 MG Delayed Release Oral Capsule Omeprazole 20 MG 02/07/2020 12:00:00 AM EDT suspended Omepr azole 20 MG eCW1 ([facility]) Omeprazole 20 MG Delayed Release Oral Capsule Omeprazole 20 MG 02/07/2020 12:00:00 AM EDT suspended Omepr azole 20 MG eCW1 ([facility]) Ibuprofen 800 MG Oral Tablet Ibuprofen 800 MG 02/07/2020 12:00:00 AM E DT active Ibuprofen 800 MG eCW1 ([facility]) Cyclobenzaprine hydrochloride 10 MG Oral Tablet Cyclob enzaprine HCl 10 MG Cyclobenzaprine HCl 10 MG 02/07/2020 12:00:00 AM EDT suspended Cyclobenzaprine HCl 10 MG eCW1 ([facility]) Ibuprofen 800 MG Oral Tablet Ibuprofen 800 MG 02/07/2020 12:00:00 AM E DT active Ibuprofen 800 MG eCW1 ([facility]) 20 mg 02/07/2020 12:00:00 AM EDT capsule,delayed release (DR/EC) 10 TAKE ONE CAPSULE BY MOUTH EVERY DAY FOR 10 DAYS TAKE ONE CAPSULE BY MOUTH EVERY DAY FOR 10 DAYS SOLD: 02/07/2020 [facility] Ibuprofen 800 MG Oral Tablet Ibuprofen 800 MG 02/07/2020 12:00:00 AM E DT active Ibuprofen 800 MG eCW1 ([facility]) Cyclobenzaprine hydrochloride 10 MG Oral Tablet Cyclob enzaprine HCl 10 MG Cyclobenzaprine HCl 10 MG 02/07/2020 12:00:00 AM EDT active Cyclobenzaprine HCl 10 MG eCW1 ([facility]) Cyclobenzaprine hydrochloride 10 MG Oral Tablet Cyclob enzaprine HCl 10 MG Cyclobenzaprine HCl 10 MG 02/07/2020 12:00:00 AM EDT suspended Cyclobenzaprine HCl 10 MG eCW1 ([facility]) Cyclobenzaprine hydrochloride 10 MG Oral Tablet CYCLOBENZAPR INE HCL 02/07/2020 12:00:00 AM EDT tablet 10 TAKE ONE TABLET BY MOUTH EVERY DAY BEFORE BEDTIME TAKE ONE TABLET BY MOUTH EVERY DAY BEFORE BEDTIME SOLD: 02/07/2020 [facility] Omeprazole 20 MG Delayed Release Oral Capsule Omeprazole 20 MG 02/07/2020 12:00:00 AM EDT suspended Omepr azole 20 MG eCW1 ([facility]) Cyclobenzaprine hydrochloride 10 MG Oral Tablet Cyclob enzaprine HCl 10 MG Cyclobenzaprine HCl 10 MG 02/07/2020 12:00:00 AM EDT suspended Cyclobenzaprine HCl 10 MG eCW1 ([facility]) Omeprazole 20 MG Delayed Release Oral Capsule Omeprazole 20 MG 02/07/2020 12:00:00 AM EDT active Omeprazo le 20 MG eCW1 ([facility]) Omeprazole 20 MG Delayed Release Oral Capsule Omeprazole 20 MG 02/07/2020 12:00:00 AM EDT suspended Omepr azole 20 MG eCW1 ([facility]) Cyclobenzaprine hydrochloride 10 MG Oral Tablet Cyclob enzaprine HCl 10 MG Cyclobenzaprine HCl 10 MG 02/07/2020 12:00:00 AM EDT suspended Cyclobenzaprine HCl 10 MG eCW1 ([facility]) Cyclobenzaprine hydrochloride 10 MG Oral Tablet Cyclob enzaprine HCl 10 MG Cyclobenzaprine HCl 10 MG 02/07/2020 12:00:00 AM EDT suspended Cyclobenzaprine HCl 10 MG eCW1 ([facility]) Cyclobenzaprine hydrochloride 10 MG Oral Tablet Cyclob enzaprine HCl 10 MG Cyclobenzaprine HCl 10 MG 02/07/2020 12:00:00 AM EDT suspended Cyclobenzaprine HCl 10 MG eCW1 ([facility]) Ibuprofen 800 MG Oral Tablet Ibuprofen 800 MG 02/07/2020 12:00:00 AM E DT active Ibuprofen 800 MG eCW1 ([facility]) Ibuprofen 800 MG Oral Tablet Ibuprofen 800 MG 02/07/2020 12:00:00 AM E DT active Ibuprofen 800 MG eCW1 ([facility]) Ibuprofen 800 MG Oral Tablet Ibuprofen 800 MG 02/07/2020 12:00:00 AM E DT active Ibuprofen 800 MG eCW1 ([facility]) Ibuprofen 800 MG Oral Tablet Ibuprofen 800 MG 02/07/2020 12:00:00 AM E DT active Ibuprofen 800 MG eCW1 ([facility]) Ibuprofen 800 MG Oral Tablet Ibuprofen 800 MG 02/07/2020 12:00:00 AM E DT active Ibuprofen 800 MG eCW1 ([facility]) Cyclobenzaprine hydrochloride 10 MG Oral Tablet Cyclob enzaprine HCl 10 MG Cyclobenzaprine HCl 10 MG 02/07/2020 12:00:00 AM EDT suspended Cyclobenzaprine HCl 10 MG eCW1 ([facility]) Ibuprofen 800 MG Oral Tablet Ibuprofen 800 MG 02/07/2020 12:00:00 AM E DT active Ibuprofen 800 MG eCW1 ([facility]) Ibuprofen 800 MG Oral Tablet Ibuprofen 800 MG 02/07/2020 12:00:00 AM E DT active Ibuprofen 800 MG eCW1 ([facility]) Ibuprofen 800 MG Oral Tablet Ibuprofen 800 MG 02/07/2020 12:00:00 AM E DT active Ibuprofen 800 MG eCW1 ([facility]) Ibuprofen 800 MG Oral Tablet Ibuprofen 800 MG 02/07/2020 12:00:00 AM E DT active Ibuprofen 800 MG eCW1 ([facility]) Omeprazole 20 MG Delayed Release Oral Capsule Omeprazole 20 MG 02/07/2020 12:00:00 AM EDT suspended Omepr azole 20 MG eCW1 ([facility]) Omeprazole 20 MG Delayed Release Oral Capsule Omeprazole 20 MG 02/07/2020 12:00:00 AM EDT suspended Omepr azole 20 MG eCW1 ([facility]) Ibuprofen 800 MG Oral Tablet Ibuprofen 800 MG 02/07/2020 12:00:00 AM E DT active Ibuprofen 800 MG eCW1 ([facility]) Cyclobenzaprine hydrochloride 10 MG Oral Tablet Cyclob enzaprine HCl 10 MG Cyclobenzaprine HCl 10 MG 02/07/2020 12:00:00 AM EDT active Cyclobenzaprine HCl 10 MG eCW1 ([facility]) Ibuprofen 800 MG Oral Tablet Ibuprofen 800 MG 02/07/2020 12:00:00 AM E DT active Ibuprofen 800 MG eCW1 ([facility]) Ibuprofen 800 MG Oral Tablet Ibuprofen 800 MG 02/07/2020 12:00:00 AM E DT active Ibuprofen 800 MG eCW1 ([facility]) Ibuprofen 800 MG Oral Tablet Ibuprofen 800 MG 02/07/2020 12:00:00 AM E DT active Ibuprofen 800 MG eCW1 ([facility]) Cyclobenzaprine hydrochloride 10 MG Oral Tablet Cyclob enzaprine HCl 10 MG Cyclobenzaprine HCl 10 MG 02/07/2020 12:00:00 AM EDT active Cyclobenzaprine HCl 10 MG eCW1 ([facility]) Cyclobenzaprine hydrochloride 10 MG Oral Tablet Cyclob enzaprine HCl 10 MG Cyclobenzaprine HCl 10 MG 02/07/2020 12:00:00 AM EDT active Cyclobenzaprine HCl 10 MG eCW1 ([facility]) Omeprazole 20 MG Delayed Release Oral Capsule Omeprazole 20 MG 02/07/2020 12:00:00 AM EDT suspended Omepr azole 20 MG eCW1 ([facility]) Ibuprofen 800 MG Oral Tablet Ibuprofen 800 MG 02/07/2020 12:00:00 AM E DT active Ibuprofen 800 MG eCW1 ([facility]) Omeprazole 20 MG Delayed Release Oral Capsule Omeprazole 20 MG 02/07/2020 12:00:00 AM EDT active Omeprazo le 20 MG eCW1 ([facility]) Omeprazole 20 MG Delayed Release Oral Capsule Omeprazole 20 MG 02/07/2020 12:00:00 AM EDT suspended Omepr azole 20 MG eCW1 ([facility]) Ibuprofen 800 MG Oral Tablet Ibuprofen 800 MG 02/07/2020 12:00:00 AM E DT active Ibuprofen 800 MG eCW1 ([facility]) topiramate 200 MG Oral Tablet TOPIRAMATE [...] type / Coverage type Policy ID Covered alliance party ID Covered alliance party's relationship to mari Policy Mari Plan Information Ghi FHP-(DO Not Use) Medigap Part B [id number] Self 0 [id number] POMCO [id number] HU2 [id number] [employer] (pr) Medigap Part B [id number] Family Dependent [id number] Margret Claims (WC) Workers Compensation [id number] Self B [id number] [employer] (pr) Commercial [id number] Self [id number] UMR F [id number] SELF [id number] Umr Commercial [id number] Self [id number] [facility] [id number] SP [id number] POMCO [id number] SP [id number] [employer] Commercial [id number] Self [id number] [facility] [id number] SP [id number] [employer] Commercial [id number] Self [employer] Commercial [id number] [employer] (pr) Commercial [id number] Family Dependent [place] Commercial [id number] Family Dependent POMCO PPO P [id number] P [id number] POMCO [id number] SP [id number] UMR O [id number] O [id number] UMR F [id number] SELF [id number] UMR F [id number] SELF [id number] UMR F [id number] SELF [id number] Umr Commercial [id number] Self [id number] Medicaid [place] Medigap Part B [id number] Self [id number] Problems, Conditions, and Diagnoses Code Display Name Description Problem Type Effective Dates Data Source(s) M26.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 Le ft temporomandibular joint disorder Problem 01/22/2021 12:00:00 AM EDT MEDENT ([facility], ) [id number] Allergic asthma without status asthmatic us Allergic asthma without status asthmaticus Problem 01/21/2021 12:00:00 AM EDT MEDENT ([facility], ) F41.9 [id number] Anxiety disorder, unspecified Problem 06/27/2020 12:00:00 AM EDT eCW1 ([facility]) M54.32 [id number] Sciatica of left side Problem 05/20/2020 12: 00:00 AM EST eCW1 ([facility]) F41.9 [id number] Anxiety Problem 04/02/2020 12:00:00 AM ES T eCW1 ([facility]) F32.9 [id number] Depression, unspecified depression type P roblem 03/29/2020 12:00:00 AM EST eCW1 ([facility]) R89.9 [id number] Abnormal laboratory test result Problem 03/04/2020 12:00:00 AM EST eCW1 ([facility]) R89.9 [id number] Abnormal laboratory test Problem 03/04/2020 12:00:00 AM EST eCW1 ([facility]) Surgeries/Procedures Procedure Description Date Indications Data Source(s) OFFICE OUTPATIENT NEW 45 MINUTES 01/22/2021 12:00:00 A M EDT MEDENT ([facility]) OFFICE OUTPATIENT VISIT 25 MINUTES 10/09/2020 12:00:00 AM EDT MEDENT ([facility]) OFFICE OUTPATIENT VISIT 15 MINUTES 07/10/2020 12:00:00 AM EDT MEDENT ([facility]) Results ID Date Data Source [id number] 01/16/2021 12:50:00 PM EDT MEDENT ([facility]) Name Value Range Interpretation Code Description Data Roberta rce(s) Supporting Document(s) Surgical pathology study Laboratory test result [facility]) FINAL DIAGNOSIS Rectal polyp, polypectomy: Tubular adenoma. 01/17/20211457 CLINICAL DIAGNOSIS Screening colonoscopy, family history of colon cancer 01/16/20211539 GROSS DIAGNOSIS Received in formalin labeled "rectal polyp" consists of one malagon fragment measuring 0.4 x 0.3 x 0.2 cm. All in one. -SV 01/16/20211539 Signed YUAN DE JESUS MD 01/17/2021 1525 ID Date Data Source [id number] 04/16/2020 01:58:00 PM EST [facility] Name Value Range Interpretation Code Description Data Roberta rce(s) Supporting Document(s) SARS coronavirus 2 RNA Detected [facility] This lab was ordered by [facility] and reported by [facility]. ID Date Data Source Coronavirus 2019 NOSE (Send Out) COVID 04/16/2020 12:00:00 A M EST eCW1 ([facility]) Name Value Range Interpretation Code Description Data Roberta rce(s) Supporting Document(s) This nucleic acid amplification test was developed and its CORONAVIRUS 2019 NOSE eCW1 ([facility]) ID Date Data Source PLZ SPINE LS COMPLETE 03/06/2020 12:00:00 AM EST eCW1 [facility] Name Value Range Interpretation Code Description Data Roberta rce(s) Supporting Document(s) PLZ SPINE LS COMPLETE eCW1 ([facility]) ID Date Data Source C REACTIVE PROTEIN QUANTITATIV (At [facility]) 03/06/2020 12:00 :00 AM EST eCW1 ([facility]) Name Value Range Interpretation Code Description Data Roberta rce(s) Supporting Document(s) 0.30 0.00-0.30 C REACTIVE PROTEIN QUANTI TATIV eCW1 ([facility]) ID Date Data Source ERYTHROCYTE SEDIMENTATION RATE 03/06/2020 12:00:00 AM EST eC W1 ([facility]) Name Value Range Interpretation Code Description Data Roberta rce(s) Supporting Document(s) 7 0-20 ERYTHROCYTE SEDIMENTATION RATE eCW1 ([facility]) ID Date Data Source UA URINALYSIS 03/06/2020 12:00:00 AM EST eCW1 ([facility]) Name Value Range Interpretation Code Description Data Roberta rce(s) Supporting Document(s) UA URINALYSIS eCW1 ([facility]) ID Date Data Source Comprehensive Metabolic Profile (CMP) 03/06/2020 12:00:00 AM EST eCW1 ([facility]) Name Value Range Interpretation Code Description Data Roberta rce(s) Supporting Document(s) 90 70-100 GLUCOSE, FASTING eCW1 ([facility]) 0.84 0.55-1.30 CREATININE FOR GFR eCW1 ([facility]) 140 136-145 SODIUM LEVEL eCW1 ([facility]) 18 7-18 BLOOD UREA NITROGEN eCW1 ([facility]) 4.9 3.5-5.1 POTASSIUM SERUM eCW1 ([facility]) > 60.0 >58 GLOMERULAR FILTRATION RATE eCW 1 ([facility]) 27 21-32 CARBON DIOXIDE LEVEL eCW1 ([facility]) 6 7-37 AST/SGOT eCW1 ([facility]) 9.0 8.5-10.1 CALCIUM LEVEL eCW1 ([facility]) 110 98-107 CHLORIDE LEVEL eCW1 ([facility]) 15 12-78 ALT/SGPT eCW1 ([facility]) 3.5 3.2-5.2 ALBUMIN eCW1 ([facility]) 0.4 0.2-1.0 BILIRUBIN,TOTAL eCW1 ([facility]) 7.0 6.4-8.2 TOTAL PROTEIN eCW1 ([facility]) 88 45-117 ALKALINE PHOSPHATASE eCW1 ([facility]) 1.0 1.2-2.2 ALBUMIN/GLOBULIN RATIO eCW1 ([facility]) ID Date Data Source CBC with Differential 03/06/2020 12:00:00 AM EST eCW1 ([facility]) Name Value Range Interpretation Code Description Data Roberta rce(s) Supporting Document(s) 4.18 4.00-5.40 RED BLOOD COUNT eCW1 ([facility]) 40.3 36.0-47.0 HEMATOCRIT eCW1 ([facility]) 5.7 4.0-10.0 WHITE BLOOD COUNT eCW1 ([facility]) 12.5 12.0-15.5 HEMOGLOBIN eCW1 ([facility]) 29.9 27.0-33.0 MEAN CORPUSCULAR HEMOGLOB IN eCW1 ([facility]) 96.4 80.0-96.0 MEAN CORPUSCULAR VOLUME e CW1 ([facility]) 31.0 32.0-36.5 MEAN CORPUSCULAR HGB CONC eCW1 ([facility]) 12.9 11.5-14.5 RED CELL DISTRIBUTION WID TH eCW1 ([facility]) 6.8 0.0-5.0 MONO % eCW1 ([facility]) 53.4 36.0-66.0 NEUTROPHILS % eCW1 ([facility]) 450 150-450 PLATELET COUNT, AUTOMATED eCW1 ([facility]) 32.5 24.0-44.0 LYMPH % eCW1 ([facility]) 3.1 1.5-8.5 NEUTROPHILS # eCW1 ([facility]) 0.9 0.0-1.0 BASO % eCW1 ([facility]) 0.4 0.0-0.8 MONO # eCW1 ([facility]) 1.9 1.5-5.0 LYMPH # eCW1 ([facility]) 5.9 0.0-3.0 EOS % eCW1 ([facility]) 0.3 0.0-0.5 EOS # eCW1 ([facility]) 0.1 0.0-0.2 BASO # eCW1 ([facility]) ID Date Data Source URINE CULTURE 02/22/2020 12:00:00 AM EST eCW1 ([facility]) Name Value Range Interpretation Code Description Data Roberta rce(s) Supporting Document(s) URINE CULTURE eCW1 ([facility]) ID Date Data Source BLOOD CULTURES 02/22/2020 12:00:00 AM EST eCW1 ([facility]) Name Value Range Interpretation Code Description Data Roberta rce(s) Supporting Document(s) BLOOD CULTURES eCW1 ([facility]) ID Date Data Source LYME DISEASE SCRN WITH CONFIRM 02/22/2020 12:00:00 AM EST eC W1 ([facility]) Name Value Range Interpretation Code Description Data Roberta rce(s) Supporting Document(s) <0.80 0.00-0.79 Lyme Disease IgM Ab Quant itati eCW1 ([facility]) <0.91 0.00-0.90 Lyme Disease IgG/IgM Anti tahir eCW1 ([facility]) ID Date Data Source [id number] 02/19/2020 12:00:00 AM EST [facility] Patient Name: SUMEET [facility]EZCUA [facility] Date of : 1975[place], [place] [address] Date of Exam: 02/19/2020#: Fax: [phone] EXAM: [...] Roberta rce(s) Supporting Document(s) SARS-CoV2 Rapid Antigen [facility] This lab was ordered by [facility] and reported by [facility]. Procedure Social History Code Duration Value Status Description Data Source(s ) Smoking 01/15/2021 12:00:00 AM EDT Former Smoker completed Former Smoker eCW1 ([facility]) Smoking 01/15/2021 12:00:00 AM EDT Former Smoker completed Former Smoker eCW1 ([facility]) Smoking 12/27/2020 12:00:00 AM EDT Former Smoker completed Former Smoker eCW1 ([facility]) Smoking 12/27/2020 12:00:00 AM EDT Former Smoker completed Former Smoker eCW1 ([facility]) Smoking 12/27/2020 12:00:00 AM EDT Former Smoker completed Former Smoker eCW1 ([facility]) Smoking 12/27/2020 12:00:00 AM EDT Former Smoker completed Former Smoker eCW1 ([facility]) Smoking 12/24/2020 12:00:00 AM EDT Former Smoker completed Former Smoker eCW1 ([facility]) Smoking 12/23/2020 12:00:00 AM EDT Former Smoker completed Former Smoker eCW1 ([facility]) Smoking 06/27/2020 12:00:00 AM EDT Former Smoker completed Former Smoker eCW1 ([facility]) Smoking 06/27/2020 12:00:00 AM EDT Former Smoker completed Former Smoker eCW1 ([facility]) Smoking 06/27/2020 12:00:00 AM EDT Former Smoker completed Former Smoker eCW1 ([facility]) Smoking 06/27/2020 12:00:00 AM EDT Former Smoker completed Former Smoker eCW1 ([facility]) Smoking 06/05/2020 12:00:00 AM EST Patient is a former smoker completed Patient is a former smoker MEDENT ([employer]) Smoking 05/20/2020 12:00:00 AM EST Former Smoker completed Former Smoker eCW1 ([facility]) Smoking 05/20/2020 12:00:00 AM EST Former Smoker completed Former Smoker eCW1 ([facility]) Smoking 05/20/2020 12:00:00 AM EST Former Smoker completed Former Smoker eCW1 ([facility]) Smoking 04/16/2020 12:00:00 AM EST Former Smoker completed Former Smoker eCW1 ([facility]) Smoking 04/16/2020 12:00:00 AM EST Former Smoker completed Former Smoker eCW1 ([facility]) Smoking 03/29/2020 12:00:00 AM EST Former Smoker completed Former Smoker eCW1 ([facility]) Smoking 03/29/2020 12:00:00 AM EST Former Smoker completed Former Smoker eCW1 ([facility]) Smoking 03/06/2020 12:00:00 AM EST Former Smoker completed Former Smoker eCW1 ([facility]) Smoking 02/22/2020 12:00:00 AM EST Former Smoker completed Former Smoker eCW1 ([facility]) Smoking 02/22/2020 12:00:00 AM EST Former Smoker completed Former Smoker eCW1 ([facility]) Smoking 02/07/2020 12:00:00 AM EDT Former Smoker completed Former Smoker eCW1 ([facility]) Vital Signs ID Date Data Source UNK Name Value Range Interpretation Code Description Data Source(s) Diastolic blood pressure 84 mm[Hg] 84 mm[Hg] [facility] ([facility]) Body height 64 [in_i] 64 [in_i] [facility] ([facility]) 5'4" Body weight 215.00 [lb_av] 215.00 [[facility]_av] [facility] Systolic blood pressure 140 mm[Hg] 140 mm[Hg] [facility] ([facility]) Body mass index (BMI) [Ratio] 36.9 kg/m2 36.9 k g/m2 [facility] ([facility]) [place] body weight 120 [lb_av] 120 [lb_av] [facility] Body weight 97.524 kg 97.524 kg [facility] ([facility]) Body surface area Derived from formula 2.02 m2 2.02 m2 [facility] ([facility]) Heart rate 82 /min 82 /min [facility] ([facility]) Systolic blood pressure 122 mm[Hg] 122 mm[Hg] [facility] ([facility]) Diastolic blood pressure 70 mm[Hg] 70 mm[Hg] [facility] ([facility]) Body weight 214.00 [lb_av] 214.00 [lb_av] [facility] Oxygen saturation in Arterial blood by Pulse oximetry 98 % 98 % [facility] ([facility]) Body mass index (BMI) [Ratio] 36.7 kg/m2 36.7 k g/m2 [facility] ([facility]) [place] body weight 120 [lb_av] 120 [lb_av] MED[facility] T ([facility]) Body height 64 [in_i] 64 [in_i] MEDENT ([facility]) 5'4" Body weight 97.070 kg 97.070 kg [facility] ([facility]) Body surface area Derived from formula 2.01 m2 2.01 m2 [facility] ([facility]) Body weight 96.8 kg 96.8 kg eCW1 ([facility]) Body weight 213.4 [lb_av] 213.4 [lb_av] eCW1 ([facility]) Body mass index (BMI) [Ratio] 36.63 kg/m2 36.63 kg/m2 W1 ([facility]) Body height [in_i] eCW1 ([facility]) Heart rate 80 /min 80 /min eCW1 ([facility]) Respiratory rate 18 /min 18 /min eCW1 ([facility]) Body temperature 98.5 [degF] 98.5 [degF] eCW1 ( [facility]) Systolic blood pressure 142 mm[Hg] 142 mm[Hg] e CW1 ([facility]) Diastolic blood pressure 82 mm[Hg] 82 mm[Hg] eCW1 ([facility]) Body weight 204 [lb_av] 204 [lb_av] eCW1 ([facility] Body weight 92.53 kg 92.53 kg eCW1 ([facility]) Respiratory rate 18 /min 18 /min eCW1 ([facility]) Body temperature 97.9 [degF] 97.9 [degF] eCW1 ( [facility]) Body height [in_i] eCW1 ([facility]) Body mass index (BMI) [Ratio] 35.01 kg/m2 35.01 kg/m2 W1 ([facility]) Heart rate 99 /min 99 /min W1 ([facility]) Systolic blood pressure 128 mm[Hg] 128 mm[Hg] e CW1 ([facility]) Diastolic blood pressure 76 mm[Hg] 76 mm[Hg] eCW1 ([facility]) Body weight 207.4 [lb_av] 207.4 [lb_av] eCW1 ([facility]) Body weight 94.08 kg 94.08 kg eCW1 ([facility]) Body height [in_i] eCW1 ([facility]) Body mass index (BMI) [Ratio] 35.60 kg/m2 35.60 kg/m2 eCW1 ([facility]) Heart rate 84 /min 84 /min eCW1 ([facility]) Respiratory rate 18 /min 18 /min eCW1 ([facility]) Body temperature 99.1 [degF] 99.1 [degF] eCW1 ( [facility]) Systolic blood pressure 132 mm[Hg] 132 mm[Hg] e CW1 ([facility]) Diastolic blood pressure 76 mm[Hg] 76 mm[Hg] eCW1 ([facility]) Body height 64 [in_i] 64 [in_i] [facility] ([facility], ) 5'4" Diastolic blood pressure 84 mm[Hg] 84 mm[Hg] [facility]JOHN ([facility], ) Body weight 202.00 [lb_av] 202.00 [lb_av] MEDEN T ([facility], ) Body mass index (BMI) [Ratio] 34.7 kg/m2 34.7 k g/m2 [facility] [place] body weight 120 [lb_av] 120 [lb_av] MEDEN T ([facility], ) Body weight 91.627 kg 91.627 kg MEDJOHN ([facility], ) Body surface area Derived from formula 1.96 m2 1.96 m2 MEDJOHN ([facility], ) Systolic blood pressure 124 mm[Hg] 124 mm[Hg] M EDENT ([facility], ) Systolic blood pressure 110 mm[Hg] 110 mm[Hg] M EDJOHN ([facility], ) Diastolic blood pressure 80 mm[Hg] 80 mm[Hg] MEDENT ([facility]) Heart rate 76 /min 76 /min MEDENT ([facility] ) Respiratory rate 16 /min 16 /min MEDENT ( [facility] ) Body weight 187 [lb_av] 187 [lb_av] eCW1 ([facility]) Body height [in_i] eCW1 ([facility]) Body mass index (BMI) [Ratio] 32.09 kg/m2 32.09 kg/m2 eCW1 ([facility]) Heart rate 82 /min 82 /min eCW1 ([facility]) Respiratory rate 18 /min 18 /min eCW1 ([facility]) Body temperature 99 [degF] 99 [degF] eCW1 ([facility]) Systolic blood pressure 128 mm[Hg] 128 mm[Hg] e CW1 ([facility]) Diastolic blood pressure 80 mm[Hg] 80 mm[Hg] eCW1 ([facility]) Systolic blood pressure 118 mm[Hg] 118 mm[Hg] M EDENT ([employer]) Diastolic blood pressure 76 mm[Hg] 76 mm[Hg] [facility] ([facility]) Body height 63.5 [in_i] 63.5 [in_i] [facility] ([facility] [employer]) 5'3.50" Body weight 183.00 [lb_av] 183.00 [lb_av] MEDEN T ([facility]) Body mass index (BMI) [Ratio] 31.9 kg/m2 31.9 k g/m2 [facility] ([employer]) Body surface area Derived from formula 1.87 m2 1.87 m2 [facility] ([employer]) Body weight 179 [lb_av] 179 [lb_av] eCW1 ([facility]) Body height [in_i] eCW1 ([facility]) Body mass index (BMI) [Ratio] 30.72 kg/m2 30.72 kg/m2 eCW1 ([facility]) Heart rate 110 /min 110 /min eCW1 ([facility]) Respiratory rate 18 /min 18 /min eCW1 ([facility]) Body temperature 99.1 [degF] 99.1 [degF] eCW1 ( [facility]) Systolic blood pressure 122 mm[Hg] 122 mm[Hg] e CW1 ([facility]) Diastolic blood pressure 78 mm[Hg] 78 mm[Hg] eCW1 ([facility]) Body weight 181 [lb_av] 181 [lb_av] eCW1 ([facility]) Body height [in_i] eCW1 ([facility]) Body temperature 98.8 [degF] 98.8 [degF] eCW1 ( [facility]) Systolic blood pressure 114 mm[Hg] 114 mm[Hg] e CW1 ([facility]) Diastolic blood pressure 76 mm[Hg] 76 mm[Hg] eCW1 ([facility]) Body mass index (BMI) [Ratio] 31.07 kg/m2 31.07 kg/m2 eCW1 ([facility]) Heart rate 95 /min 95 /min eCW1 ([facility]) Respiratory rate 16 /min 16 /min eCW1 ([facility]) Body weight 182 [lb_av] 182 [lb_av] eCW1 ([facility]) Body height [in_i] eCW1 ([facility]) Body mass index (BMI) [Ratio] 31.24 kg/m2 31.24 kg/m2 eCW1 ([facility]) Heart rate 103 /min 103 /min eCW1 ([facility]) Respiratory rate 18 /min 18 /min eCW1 ([facility]) Body temperature 98.2 [degF] 98.2 [degF] eCW1 ( [facility]) Systolic blood pressure 120 mm[Hg] 120 mm[Hg] e CW1 ([facility]) Diastolic blood pressure 74 mm[Hg] 74 mm[Hg] eCW1 ([facility]) Body weight 181 [lb_av] 181 [lb_av] eCW1 ([facility]) Body height [in_i] eCW1 ([facility]) Body mass index (BMI) [Ratio] 31.07 kg/m2 31.07 kg/m2 eCW1 ([facility]) Heart rate 97 /min 97 /min eCW1 ([facility]) Respiratory rate 18 /min 18 /min eCW1 ([facility]) Body temperature 99.2 [degF] 99.2 [degF] eCW1 ( [facility]) Systolic blood pressure 118 mm[Hg] 118 mm[Hg] e CW1 ([facility]) Diastolic blood pressure 78 mm[Hg] 78 mm[Hg] eCW1 ([facility]) Body height [in_i] eCW1 ([facility]) Body weight 182 [lb_av] 182 [lb_av] [facility]CW1 [facility] Body mass index (BMI) [Ratio] 31.24 kg/m2 31.24 kg/m2 eCW1 ([facility]) Heart rate 90 /min 90 /min eCW1 ([facility]) Respiratory rate 18 /min 18 /min eCW1 ([facility]) Body temperature 99.4 [degF] 99.4 [degF] eCW1 ( [facility]) Systolic blood pressure 136 mm[Hg] 136 mm[Hg] e CW1 ([facility]) Diastolic blood pressure 84 mm[Hg] 84 mm[Hg] eCW1 ([facility]) Patient Treatment Plan of Care Planned Activity Planned Date Details Description Data Source (s) Prednisone 10 MG Oral Tablet 12/27/2020 12:00:00 AM EDT eCW1 ([facility]) Prednisone 10 MG Oral Tablet 12/27/2020 12:00:00 AM EDT eCW1 ([facility]) Prednisone 10 MG Oral Tablet 12/27/2020 12:00:00 AM EDT eCW1 ([facility]) Prednisone 10 MG Oral Tablet 12/27/2020 12:00:00 AM EDT eCW1 ([facility]) Fluconazole 150 MG Oral Tablet [Diflucan] 12/24/2020 12:00:00 AM ED T eCW1 ([facility]) Amoxicillin 250 MG Oral Capsule 12/24/2020 12:00:00 AM EDT eCW1 ([facility]) Ciprofloxacin 3 MG/ML / Dexamethasone 1 MG/ML Otic Zuly pension 12/24/2020 12:00:00 AM EDT eCW1 ([facility]) Cyclobenzaprine hydrochloride 10 MG Oral Tablet 05/20/2020 12:00:00 AM EST eCW1 ([facility]) Cyclobenzaprine hydrochloride 10 MG Oral Tablet 05/20/2020 12:00:00 AM EST eCW1 ([facility]) Cyclobenzaprine hydrochloride 10 MG Oral Tablet 05/20/2020 12:00:00 AM EST eCW1 ([facility]) Cyclobenzaprine hydrochloride 10 MG Oral Tablet 05/20/2020 12:00:00 AM EST eCW1 ([facility]) Cyclobenzaprine hydrochloride 10 MG Oral Tablet 05/20/2020 12:00:00 AM EST eCW1 ([facility]) Prednisone 20 MG Oral Tablet 05/20/2020 12:00:00 AM EST eCW1 ([facility]) Prednisone 20 MG Oral Tablet 05/20/2020 12:00:00 AM EST eCW1 ([facility]) Cyclobenzaprine hydrochloride 10 MG Oral Tablet 05/20/2020 12:00:00 AM EST eCW1 ([facility]) Prednisone 20 MG Oral Tablet 05/20/2020 12:00:00 AM EST eCW1 ([facility]) Cyclobenzaprine hydrochloride 10 MG Oral Tablet 05/20/2020 12:00:00 AM EST eCW1 ([facility]) Escitalopram 10 MG Oral Tablet [Lexapro] 03/29/2020 12:00:00 AM EST eCW1 ([facility]) Escitalopram 10 MG Oral Tablet [Lexapro] 03/29/2020 12:00:00 AM EST eCW1 ([facility]) Escitalopram 10 MG Oral Tablet [Lexapro] 03/29/2020 12:00:00 AM EST eCW1 ([facility]) Escitalopram 10 MG Oral Tablet [Lexapro] 03/29/2020 12:00:00 AM EST eCW1 ([facility]) Escitalopram 10 MG Oral Tablet [Lexapro] 03/29/2020 12:00:00 AM EST eCW1 ([facility]) Escitalopram 10 MG Oral Tablet [Lexapro] 03/29/2020 12:00:00 AM EST eCW1 ([facility]) Escitalopram 10 MG Oral Tablet [Lexapro] 03/29/2020 12:00:00 AM EST eCW1 ([facility]) Escitalopram 10 MG Oral Tablet [Lexapro] 03/29/2020 12:00:00 AM EST eCW1 ([facility]) Ciprofloxacin 500 MG Oral Tablet [Cipro] 02/22/2020 12:00:00 AM EST eCW1 ([facility]) Ciprofloxacin 500 MG Oral Tablet [Cipro] 02/22/2020 12:00:00 AM EST eCW1 ([facility]) Cyclobenzaprine hydrochloride 10 MG Oral Tablet 02/07/2020 12:00:00 AM EDT eCW1 ([facility]) Omeprazole 20 MG Delayed Release Oral Capsule 02/07/2020 12:00:00 A M EDT eCW1 ([facility]) Cyclobenzaprine hydrochloride 10 MG Oral Tablet 02/07/2020 12:00:00 AM EDT eCW1 ([facility]) Ibuprofen 800 MG Oral Tablet 02/07/2020 12:00:00 AM EDT eCW1 ([facility])
--- NOTE | 2021-02-21 13:49 | REP ---
INDICATION: chest pain; SOB; hx of DVT. COMPARISON: None. TECHNIQUE: 3 mm axial images are obtained through the chest following the infusion of 75 cc of Isovue 370. Sagittal and coronal images were obtained from the original data set. FINDINGS: No acute infiltrate or effusion is identified. A small hiatal hernia is noted. No thoracic aortic aneurysm or dissection is identified. No definitive pulmonary embolus is identified. Sub cm lesions in the liver are too small to characterize. No other abnormality is noted in the partially visualized upper abdomen. Moderate degenerative changes are noted in the midthoracic spine. No acute fracture is evident. IMPRESSION: No evidence of aortic aneurysm or dissection or pulmonary embolus is identified. 2. Subcentimeter lesions in the liver are too small to characterize. <Electronically signed by Yohan Copeland > 02/21/21 1828
[2021-02-21 15:55] VITALS: O2SAT 92
[2021-02-21 16:08] LABS: CK-MB VALUE MASS < 1.0 NG/ML (<3.6); CPK CREATINE PHOSPHOKINASE 52 U/L (26-192); MB/CK RELATIVE INDEX 1.92 (< OR =4); TROPONIN I < 0.02 NG/ML (< 0.10)
[2021-02-21 17:14] VITALS: BP 151/72
--- NOTE | 2021-02-22 07:02 | ECGEPIP ---
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
--- NOTE | 2021-02-22 18:30 | ECGEPIP ---
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
== END 2021-02-21 17:17 | disposition home or self-care (01) ==
LOC: M ED 11:32
DX: R06.02 Shortness of breath (principal); R42 Dizziness and giddiness; B34.8 Other viral infections of unspecified site; Z20.822 Contact with and (suspected) exposure to COVID-19; F33.9 Major depressive disorder, recurrent, unspecified; G43.909 Migraine, unspecified, not intractable, without status migrainosus; Z86.718 Personal history of other venous thrombosis and embolism; Z88.8 Allergy status to other drugs, medicaments and biological substances; Z79.899 Other long term (current) drug therapy; Z79.82 Long term (current) use of aspirin
CPT/HCPCS: 36415; 71045; 71275; 80048; 82550; 82553; 84484; 85025; 87631; 87798; 93005; 93041; 94760; 99285; Q9967

== ENCOUNTER 2021-03-10 14:11 | Outpatient (RCR) | payer OTHER ==
[2021-03-11] MEDS ORDERED: PRED10TA2 (20:33)
[2021-03-11] MEDS ORDERED: ALBU8.5H (20:33)
[2021-03-12] MEDS ORDERED: CYCL-707 (07:50)
== END 2021-03-11 ==
LOC: M PT 14:11
PROVIDERS: ATTEND Otolaryngology
DX: M26.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, unspecified (principal)

== ENCOUNTER 2021-03-11 20:25 | Emergency (ER) | payer OTHER ==
[~2021-03-11] VITALS: Ht 162.6 cm; Wt 97.7 kg
[2021-03-11 20:26] VITALS: BP 138/87
[2021-03-11] MEDS ORDERED: ALBU8.5H (20:33)
[2021-03-11] MEDS ORDERED: PRED10TA2 (20:33)
[2021-03-12] MEDS ORDERED: CYCL-707 (07:50)
== END 2021-03-12 00:44 | disposition left against medical advice (07) ==
LOC: M ED 20:25
DX: Z53.29 Procedure and treatment not carried out because of patient's decision for other reasons (principal)

== ENCOUNTER 2021-03-12 04:36 | Emergency (ER) | payer OTHER ==
[~2021-03-12] VITALS: Ht 162.6 cm; Wt 95.5 kg
[~2021-03-12 04:36] MED LIST changes: +ALBU8.5H; +PRED10TA2
[2021-03-12] MEDS ORDERED: ACETAMINOPHEN 500 MG TAB PO ONE (07:45)
[2021-03-12] MEDS ORDERED: CYCL-707 (07:50)
[2021-03-12 09:57] VITALS: BP 127/67
== END 2021-03-12 10:27 | disposition home or self-care (01) ==
LOC: M ED 04:36
DX: I80.291 Phlebitis and thrombophlebitis of other deep vessels of right lower extremity (principal); G43.909 Migraine, unspecified, not intractable, without status migrainosus; Z88.8 Allergy status to other drugs, medicaments and biological substances; Z79.899 Other long term (current) drug therapy; Z79.82 Long term (current) use of aspirin

== ENCOUNTER 2021-03-17 07:37 | Emergency (ER) | payer OTHER ==
[~2021-03-17] VITALS: Ht 162.6 cm; Wt 98.6 kg
[~2021-03-17 07:37] MED LIST changes: +CYCL-707
--- NOTE | 2021-03-17 11:05 | REP ---
INDICATION: swelling/pain COMPARISON: 03/12/2021. TECHNIQUE: Real time compression and duplex Doppler interrogation of the right lower extremity deep venous system is performed, including the left common femoral vein.Compression of the right peroneal and posterior tibial veins is performed. FINDINGS: The right common femoral, superficial femoral and popliteal veins are fully compressible with transducer pressure and demonstrate normal spontaneous and phasic flow, without evidence of deep venous thrombosis.The left common femoral vein demonstrates no thrombus.There is thrombus in the right greater saphenous vein, the most proximal extent is 8.8 cm from the saphenofemoral junction. There is nonocclusive clot in the posterior tibial vein, as well as an a perforating vein communicating with the greater saphenous vein. IMPRESSION: No evidence of deep venous thrombosis of the right lower extremity femoral popliteal venous system.Thrombus in the right greater saphenous vein, the most proximal extent is 8.8 cm from the saphenofemoral junction. Nonocclusive thrombus posterior tibial vein. <Electronically signed by Raz Tatum > 03/17/21 7812
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
--- OUTSIDE RECORDS SUMMARY | 2021-03-17 11:32 | CCD ---
Author Author [facility] Organization [facility] Address Unknown Phone Unavailable Care Team Providers Care Retail Wireless Associate Name Role Phone Isai GLEZ MD Unavailable [...] Unavailable Isai GLEZ MD Unavailable Unavailable Isai GELZ MD Unavailable [...] Karson, C Singh PH.D., M.D. Unavailable Unavailable Re-disclosure Warning The [...] is protected by Article 27-F of the [facility] Public Health law. If you continue you may have access to information: Regarding HIV / AIDS; Provided by facilities licensed or operated by the [facility] Office of Mental Health; or Provided by the [facility] Office for People With Developmental Disabilities. If such information is present, then the following [facility] mandated warning applies: This information [...] law may result in a fine or mcc sentence or both. A general authorization for the release of medical or other information is NOT sufficient authorization for further disc losure. Family History Family Member Name Family Member Gender Family Member Status Date o f Status Description Data Source(s) Unknown Unknown Problem MEDENT ([employer]) Unknown Unknown Problem MEDENT ([facility]) Unknown Female Encounters Encounter Providers Location Date Indications Data Source(s ) Unknown [address] [place] [address] [place] [address] 03/12/2021 12:00:00 AM EST eCW1 ([facility]) Outpatient [address] [facility] [address] 02/27/2021 12:00:00 AM EST eCW1 ([facility]) Unknown [address] [facility] [address] 02/25/2021 12:00:00 AM EST eCW1 ([facility]) Unknown [address] [place] [address] Y [address] 02/05/2021 12:00:00 AM EDT eCW1 ([facility]) Outpatient Attender: Singh Ty PH.D., M.D. Jaswant/Leilani/Martinez casanova/Kody 01/22/2021 02:45:00 PM EDT MEDENT ([facility] Outpatient [address] [facility] [place] [address] 01/15/2021 12:00:00 AM EDT eCW1 ([facility]) [place] [address] [facility] [address] 01/14/2021 12:00:00 AM EDT eCW1 ([facility]) [place]patient [address] [facility] [address] 12/27/2020 12:00:00 AM EDT eCW1 ([facility]) Unknown [address] [facility] [address] 12/26/2020 12:00:00 AM EDT eCW1 ([facility]) [place]patient [address] [facility] [address] 12/24/2020 12:00:00 AM EDT eCW1 ([facility]) Unknown [address] [facility] [address] 12/24/2020 12:00:00 AM EDT eCW1 ([facility]) Unknown [address] [facility] [address] 12/23/2020 12:00:00 AM EDT eCW1 ([facility]) Unknown [address] [facility] [address] 10/15/2020 12:00:00 AM EDT eCW1 ([facility]) Outpatient Attender: Kimberly MITCHELL [facility] n 10/09/2020 08:00:00 AM EDT MEDENT ([facility] Narayanan) Unknown [address] [facility] [address] 08/29/2020 12:00:00 AM EDT eCW1 ([facility]) Outpatient Attender: Kimberly MITCHELL [facility] n 07/10/2020 08:00:00 AM EDT MEDENT ([facility] Narayanan) Unknown [address] [facility] [address] 07/01/2020 12:00:00 AM EDT eCW1 ([facility]) [place]patient [address] [facility] [address] 06/27/2020 12:00:00 AM EDT eCW1 ([facility]) Unknown [address] [facility] [address] 06/18/2020 12:00:00 AM EST eCW1 ([facility]) 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 09:00:00 AM EST MEDENT ([employer] [facility]) Unknown [address] [facility] [address] 05/20/2020 12:00:00 AM EST eCW1 ([facility]) Unknown [address] [facility] [place] [address] 04/18/2020 12:00:00 AM EST eCW1 ([facility]) Outpatient [address] [facility] [place] [address] 04/16/2020 12:00:00 AM EST eCW1 ([facility]) Outpatient [address] [facility] [address] 03/29/2020 12:00:00 AM EST eCW1 [facility] Unknown [address] [facility] [address] 03/28/2020 12:00:00 AM EST eCW1 ([facility]) Outpatient [address] [facility] [place] [address] 03/06/2020 12:00:00 AM EST eCW1 ([facility]) Outpatient [address] [facility] [place] [address] 02/22/2020 12:00:00 AM EST eCW1 ([facility]) Unknown [address] [facility] [place] [address] 02/22/2020 12:00:00 AM EST eCW1 ([facility]) Outpatient Attender: Kimberly MITCHELL Main office - [facility] 02/21/2020 12:45:00 PM EST MEDENT ([facility]) Unknown [address] [facility] [address] 02/07/2020 12:00:00 AM EDT eCW1 ([facility]) Outpatient [address] [facility] [address] 02/07/2020 12:00:00 AM EDT eCW1 ([facility]) Immunizations Vaccine Date Status Description Data Source(s) Pfizer #2 dose COVID-19 (given elsewhere) SARSCOV2 VAC 30MCG/0.3ML IM 07/10/2020 07:28:00 AM EDT completed eCW1 ([facility]) Pfizer #2 dose COVID-19 (given elsewhere) SARSCOV2 VAC 30MCG/0.3ML IM 07/10/2020 07:28:00 AM EDT completed eCW1 ([facility]) Pfizer #2 dose COVID-19 (given elsewhere) SARSCOV2 VAC 30MCG/0.3ML IM 07/10/2020 07:28:00 AM EDT completed eCW1 ([facility]) Pfizer #2 dose COVID-19 (given elsewhere) SARSCOV2 VAC 30MCG/0.3ML IM 07/10/2020 07:28:00 AM EDT completed eCW1 ([facility]) Pfizer #2 dose COVID-19 (given elsewhere) SARSCOV2 VAC 30MCG/0.3ML IM 07/10/2020 07:28:00 AM EDT completed eCW1 ([facility]) Pfizer #2 dose COVID-19(given elsewhere) SARSCOV2 VAC 30MCG/0.3ML IM 07/10/2020 07:28:00 AM EDT completed eCW1 ([facility]) Pfizer #2 dose COVID-19(given elsewhere) SARSCOV2 VAC 30MCG/0.3ML IM 07/10/2020 07:28:00 AM EDT completed eCW1 ([facility]) Pfizer #2 dose COVID-19(given elsewhere) SARSCOV2 VAC 30MCG/0.3ML IM 07/10/2020 07:28:00 AM EDT completed eCW1 ([facility]) Pfizer #2 dose COVID-19(given elsewhere) SARSCOV2 VAC 30MCG/0.3ML IM 07/10/2020 07:28:00 AM EDT completed eCW1 ([facility]) Pfizer #2 dose COVID-19(given elsewhere) SARSCOV2 VAC 30MCG/0.3ML IM 07/10/2020 07:28:00 AM EDT completed eCW1 ([facility]) COVID-19 VACCINE Pfizer 07/10/2020 12:00:00 AM EDT completed [facility] Vaccine Series Complete: YESThis Data wa s Submitted to [facility] Via [employer]. Pfizer #1 dose COVID-19 (given elsewhere) SARSCOV2 VAC 30MCG/0.3ML IM 06/19/2020 07:27:00 AM EST completed eCW1 ([facility]) Pfizer #1 dose COVID-19 (given elsewhere) SARSCOV2 VAC 30MCG/0.3ML IM 06/19/2020 07:27:00 AM EST completed eCW1 ([facility]) Pfizer #1 dose COVID-19 (given elsewhere) SARSCOV2 VAC 30MCG/0.3ML IM 06/19/2020 07:27:00 AM EST completed eCW1 ([facility]) Pfizer #1 dose COVID-19 (given elsewhere) SARSCOV2 VAC 30MCG/0.3ML IM 06/19/2020 07:27:00 AM EST completed eCW1 ([facility]) Pfizer #1 dose COVID-19 (given elsewhere) SARSCOV2 VAC 30MCG/0.3ML IM 06/19/2020 07:27:00 AM EST completed eCW1 ([facility]) Pfizer #1 dose COVID-19(given elsewhere) SARSCOV2 VAC 30MCG/0.3ML IM 06/19/2020 07:27:00 AM EST completed eCW1 ([facility]) Pfizer #1 dose COVID-19(given elsewhere) SARSCOV2 VAC 30MCG/0.3ML IM 06/19/2020 07:27:00 AM EST completed eCW1 ([facility]) Pfizer #1 dose COVID-19(given elsewhere) SARSCOV2 VAC 30MCG/0.3ML IM 06/19/2020 07:27:00 AM EST completed eCW1 ([facility]) Pfizer #1 dose COVID-19(given elsewhere) SARSCOV2 VAC 30MCG/0.3ML IM 06/19/2020 07:27:00 AM EST completed eCW1 ([facility]) Pfizer #1 dose COVID-19(given elsewhere) SARSCOV2 VAC 30MCG/0.3ML IM 06/19/2020 07:27:00 AM EST completed eCW1 ([facility]) COVID-19 VACCINE Pfizer 06/19/2020 12:00:00 AM EST completed [facility] Vaccine Series Complete: NOThis Data was Submitted to [facility] Via [employer]. Medications Medication Brand Name Start Date Product Form Dose Route Admi nistrative Instructions Pharmacy Instructions Status Indications Reaction Description Data Source(s) Cyclobenzaprine hydrochloride 10 MG Oral Tablet CYCLOBENZAPR INE HCL 03/13/2021 12:00:00 AM EST tablet 30 TAKE ONE TABLET BY MOUTH EVERY 8 HOURS NEEDED TAKE ONE TABLET BY MOUTH EVERY 8 HOURS NEEDED SOLD: 03/14/2021 [facility] 10 mg 02/27/2021 12:00:00 AM EST tablet 30 TAKE FOUR TABLETS BY MOUTH EVERY DAY FOR 3 DAYS, 3 FOR 3 DAYS, 2 FOR 3 DAYS, THEN TAKE ONE TABLET DAILY FOR 3 DAYS TAKE FOUR TABLETS BY MOUTH EVERY DAY FOR 3 DAYS, 3 FOR 3 DAYS, 2 FOR 3 DAYS, THEN TAKE ONE TABLET DAILY FOR 3 DAYS SOLD: 02/28/2021 [facility] 90 mcg/actuation 02/27/2021 12:00:00 AM EST HFA aerosol inha ler 8 INHALE TWO PUFFS BY MOUTH EVERY 4 TO 6 HOURS NEEDED INHALE TWO PUFFS BY MOUTH EVERY 4 TO 6 HOURS NEEDED SOLD: 02/28/2021 [facility] 200 ACTUAT Albuterol 0.09 MG/ACTUAT Mete red Dose Inhaler [ProAir] ProAir HFA 108 (90 Base) MCG/ACT ProAir HFA 108 (90 Base) MCG/ACT 02/27/2021 12:00:00 AM EST 2.0 {puffs_as_needed} active Pr oAir HFA 108 (90 Base) MCG/ACT eCW1 ([facility]) Prednisone 10 MG Oral Tablet predniSONE 10 MG predniSONE 10 MG 02/27/2021 12:00:00 AM EST active predniSO NE 10 MG eCW1 ([facility]) 200 ACTUAT Albuterol 0.09 MG/ACTUAT Mete red Dose Inhaler [ProAir] ProAir HFA 108 (90 Base) MCG/ACT ProAir HFA 108 (90 Base) MCG/ACT 02/27/2021 12:00:00 AM EST 2.0 {puffs_as_needed} active Pr oAir HFA 108 (90 Base) MCG/ACT eCW1 ([facility]) Prednisone 10 MG Oral Tablet predniSONE 10 MG predniSONE 10 MG 02/27/2021 12:00:00 AM EST active predniSO NE 10 MG eCW1 ([facility]) POLYETHYLENE GLYCOL 3350 142 MG/ML Oral Solution [Miralax] M iralax 02/14/2021 12:00:00 AM EDT active M EDENT ([facility], ) Bisacodyl 5 MG Delayed Release Oral Tablet [Dulcolax] Dulcol ax 02/14/2021 12:00:00 AM EDT ORAL active M EDENT ([facility], ) Cyclobenzaprine hydrochloride 10 MG Oral [...] {tablets} active p redniSONE 10 MG eCW1 ([facility]) Prednisone 10 MG Oral Tablet predniSONE 10 MG predniSONE 10 MG 12/27/2020 12:00:00 AM EDT 3.0 {tablets} active p redniSONE 10 MG eCW1 ([facility]) Prednisone 10 MG Oral Tablet predniSONE 10 MG predniSONE 10 MG 12/27/2020 12:00:00 AM EDT 3.0 {tablets} active p redniSONE 10 MG eCW1 ([facility]) Prednisone 10 MG Oral Tablet predniSONE 10 MG predniSONE 10 MG 12/27/2020 12:00:00 AM EDT 3.0 {tablets} active p redniSONE 10 MG eCW1 ([facility]) Prednisone 10 MG Oral Tablet predniSONE 10 MG predniSONE 10 MG 12/27/2020 12:00:00 AM EDT 3.0 {tablets} active p redniSONE 10 MG eCW1 ([facility]) Prednisone 10 MG Oral Tablet predniSONE 10 MG predniSONE 10 MG 12/27/2020 12:00:00 AM EDT 3.0 {tablets} active p redniSONE 10 MG eCW1 ([facility]) Prednisone 10 MG Oral Tablet predniSONE 10 MG predniSONE 10 MG 12/27/2020 12:00:00 AM EDT 3.0 {tablets} active p redniSONE 10 MG eCW1 ([facility]) Amoxicillin 250 MG Oral Capsule Amoxicillin 250 MG 12/24/2020 12:00 :00 AM EDT active Amoxicillin 250 MG eCW1 ([facility]) Fluconazole 150 MG Oral Tablet [Diflucan] Diflucan 150 MG Di flucan 150 MG 12/24/2020 12:00:00 AM EDT 1.0 {tablet} active Diflucan 150 MG eCW1 ([facility]) Ciprofloxacin 3 MG/ML / Dexamethasone 1 MG/ML Otic Suspension Ciprofloxacin- Dexamethasone 0.3-0.1 % Ciprofloxacin-Dexamethasone 0.3-0.1 % 12/24/2020 12:00:00 AM EDT active Ciproflo xacin-Dexamethasone 0.3-0.1 % eCW1 ([facility]) Amoxicillin 250 MG Oral Capsule Amoxicillin 250 MG 12/24/2020 12:00 :00 AM EDT active Amoxicillin 250 MG eCW1 ([facility]) Fluconazole 150 MG Oral Tablet [Diflucan] Diflucan 150 MG Di flucan 150 MG 12/24/2020 12:00:00 AM EDT 1.0 {tablet} active Diflucan 150 MG eCW1 ([facility]) Fluconazole 150 MG Oral Tablet [Diflucan] Diflucan 150 MG Di flucan 150 MG 12/24/2020 12:00:00 AM EDT 1.0 {tablet} active Diflucan 150 MG eCW1 ([facility]) Fluconazole 150 MG Oral Tablet [Diflucan] Diflucan 150 MG Di flucan 150 MG 12/24/2020 12:00:00 AM EDT 1.0 {tablet} active Diflucan 150 MG eCW1 ([facility]) 250 mg 12/24/2020 12:00:00 AM EDT capsule 40 TAKE ONE CAPSULE BY MOUTH FOUR TIMES A DAY FOR 10 DAYS TAKE ONE CAPSULE BY MOUTH FOUR TIMES A DAY FOR 10 DAYS SOLD: 12/24/2020 [facility] Amoxicillin 250 MG Oral Capsule Amoxicillin 250 MG 12/24/2020 12:00 :00 AM EDT active Amoxicillin 250 MG eCW1 ([facility]) Amoxicillin 250 MG Oral Capsule Amoxicillin 250 MG 12/24/2020 12:00 :00 AM EDT active Amoxicillin 250 MG eCW1 ([facility]) Amoxicillin 250 MG Oral Capsule Amoxicillin 250 MG 12/24/2020 12:00 :00 AM EDT active Amoxicillin 250 MG eCW1 ([facility]) Fluconazole 150 MG Oral Tablet [Diflucan] Diflucan 150 MG Di flucan 150 MG 12/24/2020 12:00:00 AM EDT 1.0 {tablet} active Diflucan 150 MG eCW1 ([facility]) Ciprofloxacin 3 MG/ML / Dexamethasone 1 MG/ML Otic Suspension Ciprofloxacin- Dexamethasone 0.3-0.1 % Ciprofloxacin-Dexamethasone 0.3-0.1 % 12/24/2020 12:00:00 AM EDT active Ciproflo xacin-Dexamethasone 0.3-0.1 % eCW1 ([facility]) Amoxicillin 250 MG Oral Capsule Amoxicillin 250 MG 12/24/2020 12:00 :00 AM EDT active Amoxicillin 250 MG eCW1 ([facility]) Fluconazole 150 MG Oral Tablet [Diflucan] Diflucan 150 MG Di flucan 150 MG 12/24/2020 12:00:00 AM EDT 1.0 {tablet} active Diflucan 150 MG eCW1 ([facility]) Ciprofloxacin 3 MG/ML / Dexamethasone 1 MG/ML Otic Suspension Ciprofloxacin- Dexamethasone 0.3-0.1 % Ciprofloxacin-Dexamethasone 0.3-0.1 % 12/24/2020 12:00:00 AM EDT active Ciproflo xacin-Dexamethasone 0.3-0.1 % eCW1 ([facility]) Ciprofloxacin 3 MG/ML / Dexamethasone 1 MG/ML Otic Suspension Ciprofloxacin- Dexamethasone 0.3-0.1 % Ciprofloxacin-Dexamethasone 0.3-0.1 % 12/24/2020 12:00:00 AM EDT active Ciproflo xacin-Dexamethasone 0.3-0.1 % eCW1 ([facility]) Ciprofloxacin 3 MG/ML / Dexamethasone 1 MG/ML Otic Suspension Ciprofloxacin- Dexamethasone 0.3-0.1 % Ciprofloxacin-Dexamethasone 0.3-0.1 % 12/24/2020 12:00:00 AM EDT active Ciproflo xacin-Dexamethasone 0.3-0.1 % eCW1 ([facility]) 150 mg 12/24/2020 12:00:00 AM EDT tablet 2 TAKE ONE TABLET BY MOUTH NOW AND REPEAT IN 2 DAYS TAKE ONE TABLET BY MOUTH NOW AND REPEAT IN 2 DAYS SOLD : 12/27/2020 [facility] Ciprofloxacin 3 MG/ML / Dexamethasone 1 MG/ML Otic Suspension Ciprofloxacin- Dexamethasone 0.3-0.1 % Ciprofloxacin-Dexamethasone 0.3-0.1 % 12/24/2020 12:00:00 AM EDT active Ciproflo xacin-Dexamethasone 0.3-0.1 % eCW1 ([facility]) Fluconazole 150 MG Oral Tablet [Diflucan] Diflucan 150 MG Di flucan 150 MG 12/24/2020 12:00:00 AM EDT 1.0 {tablet} active Diflucan 150 MG eCW1 ([facility]) Escitalopram 10 MG Oral Tablet ESCITALOPRAM OXALATE 12/24/2020 1 2:00:00 AM EDT tablet 90 TAKE ONE TABLET BY MOUTH EVERY D AY TAKE ONE TABLET BY MOUTH EVERY DAY SOLD: 12/24/2020 [facility] Ciprofloxacin 3 MG/ML / Dexamethasone 1 MG/ML Otic Suspension Ciprofloxacin- Dexamethasone 0.3-0.1 % Ciprofloxacin-Dexamethasone 0.3-0.1 % 12/24/2020 12:00:00 AM EDT active Ciproflo xacin-Dexamethasone 0.3-0.1 % eCW1 ([facility]) Ciprofloxacin 3 MG/ML / Dexamethasone 1 MG/ML Otic Suspension Ciprofloxacin- Dexamethasone 0.3-0.1 % Ciprofloxacin-Dexamethasone 0.3-0.1 % 12/24/2020 12:00:00 AM EDT active Ciproflo xacin-Dexamethasone 0.3-0.1 % eCW1 ([facility]) Amoxicillin 250 MG Oral Capsule Amoxicillin 250 MG 12/24/2020 12:00 :00 AM EDT active Amoxicillin 250 MG eCW1 ([facility]) 0.3-0.1 % 12/24/2020 12:00:00 AM [...] 1.0 {tablet} active Diflucan 150 MG eCW1 ([facility]) Amoxicillin 250 MG Oral Capsule Amoxicillin 250 MG 12/24/2020 12:00 :00 AM EDT active Amoxicillin 250 MG eCW1 ([facility]) Bisacodyl 5 MG Delayed Release Oral Tablet [Dulcolax] Dulcol ax 12/03/2020 12:00:00 AM EDT ORAL completed MEDENT ([facility], ) Sutab Sutab 12/03/2020 12:00:00 AM EDT completed MEDENT ([facility], ) 1.479-0.188- 0.225 gram 12/03/2020 12:00:00 AM EDT tablet 24 TAKE TABLETS DIRECTED BY DOCTOR FOR BOWEL PREP TAKE TABLETS DIRECTED BY DOCTOR FOR B OWEL PREP SOLD: 12/16/2020 [facility] rizatriptan 10 MG Disintegrating Oral [...] A DAY FOR 7 DAYS SOLD: 08/15/2020 [facility] Amoxicillin 875 MG / Clavulanate 125 [...] TABLET BY MOUTH AT BEDTIME SOLD: 07/25/2020 [facility] Escitalopram 10 MG Oral Tablet ESCITALOPRAM OXALATE 06/27/2020 1 2:00:00 AM EDT tablet 90 TAKE ONE TABLET BY MOUTH EVERY D AY TAKE ONE TABLET BY MOUTH EVERY DAY SOLD: 09/27/2020 [facility] Escitalopram 10 MG Oral Tablet ESCITALOPRAM OXALATE 06/27/2020 1 2:00:00 AM EDT tablet 90 TAKE ONE TABLET BY MOUTH EVERY D AY TAKE ONE TABLET BY MOUTH EVERY DAY SOLD: 06/29/2020 [facility] Cyclobenzaprine hydrochloride 10 MG Oral Tablet CYCLOBENZAPR INE HCL 06/27/2020 12:00:00 AM EDT tablet 30 TAKE ONE TABLET BY MOUTH EVERY 8 HOURS NEEDED TAKE ONE TABLET BY MOUTH EVERY 8 HOURS NEEDED SOLD: 06/29/2020 [facility] Cyclobenzaprine hydrochloride 10 MG Oral Tablet CYCLOBENZAPR INE HCL 06/19/2020 12:00:00 AM EST tablet 30 TAKE ONE TABLET BY MOUTH EVERY 8 HOURS NEEDED FOR 10 DAYS TAKE ONE TABLET BY MOUTH EVERY 8 HOURS NEEDED FOR 1 0 DAYS SOLD: 06/19/2020 [facility] Cyclobenzaprine hydrochloride 10 MG Oral Tablet Cyclob enzaprine HCl 10 MG Cyclobenzaprine HCl 10 MG 05/20/2020 12:00:00 AM EST 1.0 {tablet} active Cyclobenzaprine HCl 10 MG eCW1 ( [facility]) Prednisone 20 MG Oral Tablet PredniSONE 20 MG PredniSONE 20 MG 05/20/2020 12:00:00 AM EST 1.0 {tablet} active Pr edniSONE 20 MG eCW1 ([facility]) Prednisone 20 MG Oral Tablet PredniSONE 20 MG PredniSONE 20 MG 05/20/2020 12:00:00 AM EST 1.0 {tablet} active Pr edniSONE 20 MG eCW1 ([facility]) 20 mg 05/20/2020 12:00:00 AM EST tablet 10 TAKE ONE TABLET BY MOUTH TWICE A DAY FOR 5 DAYS TAKE ONE TABLET BY MOUTH TWICE A DAY FOR 5 DAYS SOLD: 2020 [facility] Cyclobenzaprine hydrochloride 10 MG Oral Tablet Cyclob enzaprine HCl 10 MG Cyclobenzaprine HCl 10 MG 05/20/2020 12:00:00 AM EST 1.0 {tablet} active Cyclobenzaprine HCl 10 MG eCW1 ( [facility]) Cyclobenzaprine hydrochloride 10 MG Oral Tablet Cyclob enzaprine HCl 10 MG Cyclobenzaprine HCl 10 MG 05/20/2020 12:00:00 AM EST 1.0 {tablet} active Cyclobenzaprine HCl 10 MG eCW1 ( [facility]) Cyclobenzaprine hydrochloride 10 MG Oral Tablet Cyclob enzaprine HCl 10 MG Cyclobenzaprine HCl 10 MG 05/20/2020 12:00:00 AM EST 1.0 {tablet} active Cyclobenzaprine HCl 10 MG eCW1 ( [facility]) Cyclobenzaprine hydrochloride 10 MG Oral Tablet CYCLOBENZAPR INE HCL 05/20/2020 12:00:00 AM EST tablet 30 TAKE ONE TABLET BY MOUTH EVERY 8 HOURS NEEDED FOR 10 DAYS TAKE ONE TABLET BY MOUTH EVERY 8 HOURS NEEDED FOR 1 0 DAYS SOLD: 05/20/2020 [facility] Cyclobenzaprine hydrochloride 10 MG Oral Tablet Cyclob enzaprine HCl 10 MG Cyclobenzaprine HCl 10 MG 05/20/2020 12:00:00 AM EST 1.0 {tablet} active Cyclobenzaprine HCl 10 MG eCW1 ( [facility]) Prednisone 20 MG Oral Tablet PredniSONE 20 MG PredniSONE 20 MG 05/20/2020 12:00:00 AM EST 1.0 {tablet} active Pr edniSONE 20 MG eCW1 ([facility]) Cyclobenzaprine hydrochloride 10 MG Oral Tablet Cyclob enzaprine HCl 10 MG Cyclobenzaprine HCl 10 MG 05/20/2020 12:00:00 AM EST 1.0 {tablet} active Cyclobenzaprine HCl 10 MG eCW1 ( [facility]) Cyclobenzaprine hydrochloride 10 MG Oral Tablet Cyclob enzaprine HCl 10 MG Cyclobenzaprine HCl 10 MG 05/20/2020 12:00:00 AM EST 1.0 {tablet} active Cyclobenzaprine HCl 10 MG eCW1 ( [facility]) Cyclobenzaprine hydrochloride 10 MG Oral Tablet Cyclob enzaprine HCl 10 MG Cyclobenzaprine HCl 10 MG 05/20/2020 12:00:00 AM EST 1.0 {tablet} active Cyclobenzaprine HCl 10 MG eCW1 ( [facility]) Escitalopram 10 MG Oral Tablet [...] {tablet} active Le xapro 10 MG eCW1 ([facility]) Escitalopram 10 MG Oral Tablet [Lexapro] Lexapro 10 MG Lexap ro 10 MG 03/29/2020 12:00:00 AM EST 1.0 {tablet} active Le xapro 10 MG eCW1 ([facility]) Escitalopram 10 MG Oral Tablet [Lexapro] Lexapro 10 MG Lexap ro 10 MG 03/29/2020 12:00:00 AM EST 1.0 {tablet} active Le xapro 10 MG eCW1 ([facility]) Escitalopram 10 MG Oral Tablet [Lexapro] Lexapro 10 MG Lexap ro 10 MG 03/29/2020 12:00:00 AM EST 1.0 {tablet} active Le xapro 10 MG eCW1 ([facility]) Escitalopram 10 MG Oral Tablet [Lexapro] Lexapro 10 MG Lexap ro 10 MG 03/29/2020 12:00:00 AM EST 1.0 {tablet} active Le xapro 10 MG eCW1 ([facility]) Escitalopram 10 MG Oral Tablet [Lexapro] Lexapro 10 MG Lexap ro 10 MG 03/29/2020 12:00:00 AM EST 1.0 {tablet} active Le xapro 10 MG eCW1 ([facility]) Escitalopram 10 MG Oral Tablet [Lexapro] Lexapro 10 MG Lexap ro 10 MG 03/29/2020 12:00:00 AM EST 1.0 {tablet} active Le xapro 10 MG eCW1 ([facility]) Escitalopram 10 MG Oral Tablet [Lexapro] Lexapro 10 MG Lexap ro 10 MG 03/29/2020 12:00:00 AM EST 1.0 {tablet} active Le xapro 10 MG eCW1 ([facility]) Escitalopram 10 MG Oral Tablet [Lexapro] Lexapro 10 MG Lexap ro 10 MG 03/29/2020 12:00:00 AM EST 1.0 {tablet} active Le xapro 10 MG eCW1 ([facility]) Escitalopram 10 MG Oral Tablet [Lexapro] Lexapro 10 MG Lexap ro 10 MG 03/29/2020 12:00:00 AM EST 1.0 {tablet} active Le xapro 10 MG eCW1 ([facility]) Escitalopram 10 MG Oral Tablet [Lexapro] Lexapro 10 MG Lexap ro 10 MG 03/29/2020 12:00:00 AM EST 1.0 {tablet} active Le xapro 10 MG eCW1 ([facility]) Escitalopram 10 MG Oral Tablet [Lexapro] Lexapro 10 MG Lexap ro 10 MG 03/29/2020 12:00:00 AM EST 1.0 {tablet} active Le xapro 10 MG eCW1 ([facility]) Cyclobenzaprine hydrochloride 10 MG Oral [...] 1.0 {tablet} suspended Cipro 500 MG eCW1 ([facility]) Ciprofloxacin 500 MG Oral Tablet [Cipro] Cipro 500 MG Cipro 500 MG 02/22/2020 12:00:00 AM EST 1.0 {tablet} suspended Cipro 500 MG eCW1 ([facility]) Ciprofloxacin 500 MG Oral Tablet [Cipro] Cipro 500 MG Cipro 500 MG 02/22/2020 12:00:00 AM EST 1.0 {tablet} active Ci pro 500 MG [facility]CW[facility] ([facility] [facility] Ciprofloxacin 500 MG Oral Tablet [Cipro] Cipro 500 MG Cipro 500 MG 02/22/2020 12:00:00 AM EST 1.0 {tablet} suspended Cipro 500 MG eCW1 ([facility]ly [facility]) Ciprofloxacin 500 MG Oral Tablet [Cipro] Cipro 500 MG Cipro 500 MG 02/22/2020 12:00:00 AM EST 1.0 {tablet} suspended Cipro 500 MG eCW1 ([facility]ly [facility]) Ciprofloxacin 500 MG Oral Tablet [Cipro] Cipro 500 MG Cipro 500 MG 02/22/2020 12:00:00 AM EST 1.0 {tablet} suspended Cipro 500 MG eCW1 ([facility]ly [facility]) Ciprofloxacin 500 MG Oral Tablet [Cipro] Cipro 500 MG Cipro 500 MG 02/22/2020 12:00:00 AM EST 1.0 {tablet} active Ci pro 500 MG eCW1 ([facility]ly [facility]) Ciprofloxacin 500 MG Oral Tablet [Cipro] Cipro 500 MG Cipro 500 MG 02/22/2020 12:00:00 AM EST 1.0 {tablet} suspended Cipro 500 MG eCW1 ([facility]ly [facility]) Ciprofloxacin 500 MG Oral Tablet [Cipro] Cipro 500 MG Cipro 500 MG 02/22/2020 12:00:00 AM EST 1.0 {tablet} suspended Cipro 500 MG eCW1 ([facility]ly [facility]) 500 mg 02/22/2020 12:00:00 AM EST tablet 14 TAKE ONE TABLET BY MOUTH EVERY 12 HOURS FOR 7 DAYS TAKE ONE TABLET BY MOUTH EVERY 12 HOURS FOR 7 DAYS ALICE [facility] Ciprofloxacin 500 MG Oral Tablet [Cipro] Cipro 500 MG Cipro 500 MG 02/22/2020 12:00:00 AM EST 1.0 {tablet} suspended Cipro 500 MG eCW1 ([facility]ly [facility]) Omeprazole 20 MG Delayed Release Oral Capsule Omeprazole 20 MG 02/07/2020 12:00:00 AM EDT active Omeprazo le 20 MG eCW1 ([facility]) Ibuprofen 800 MG Oral Tablet Ibuprofen 800 MG 02/07/2020 12:00:00 AM E DT active Ibuprofen 800 MG eCW1 ([facility]) Ibuprofen 800 MG Oral Tablet Ibuprofen 800 MG 02/07/2020 12:00:00 AM E DT active Ibuprofen 800 MG eCW1 ([facility]) 800 mg 02/07/2020 12:00:00 AM EDT tablet 30 TAKE ONE TABLET BY MOUTH THREE TIMES A DAY WITH MILK OR FOOD NEEDED TAKE ONE TABLET BY MOUTH THREE TIMES A DAY WITH MILK OR FOOD NEEDED SOLD: 02/07/2020 [facility] Ibuprofen 800 MG Oral Tablet Ibuprofen 800 MG 02/07/2020 12:00:00 AM E DT active Ibuprofen 800 MG eCW1 ([facility]) Ibuprofen 800 MG Oral Tablet Ibuprofen 800 MG 02/07/2020 12:00:00 AM E DT active Ibuprofen 800 MG eCW1 ([facility]) Ibuprofen 800 MG Oral Tablet Ibuprofen 800 MG 02/07/2020 12:00:00 AM E DT active Ibuprofen 800 MG eCW1 ([facility]) Omeprazole 20 MG Delayed Release Oral Capsule Omeprazole 20 MG 02/07/2020 12:00:00 AM EDT suspended Omepr azole 20 MG eCW1 ([facility]) Omeprazole 20 MG Delayed Release Oral Capsule Omeprazole 20 MG 02/07/2020 12:00:00 AM EDT suspended Omepr azole 20 MG eCW1 ([facility]) Ibuprofen 800 MG Oral Tablet Ibuprofen 800 MG 02/07/2020 12:00:00 AM E DT active Ibuprofen 800 MG eCW1 ([facility]) Cyclobenzaprine hydrochloride 10 MG Oral Tablet Cyclob enzaprine HCl 10 MG Cyclobenzaprine HCl 10 MG 02/07/2020 12:00:00 AM EDT suspended Cyclobenzaprine HCl 10 MG eCW1 ([facility]) Ibuprofen 800 MG Oral Tablet Ibuprofen 800 MG 02/07/2020 12:00:00 AM E DT active Ibuprofen 800 MG eCW1 ([facility]) Ibuprofen 800 MG Oral Tablet Ibuprofen 800 MG 02/07/2020 12:00:00 AM E DT active Ibuprofen 800 MG eCW1 ([facility]) 20 mg 02/07/2020 12:00:00 AM EDT capsule,delayed release (DR/EC) 10 TAKE ONE CAPSULE BY MOUTH EVERY DAY FOR 10 DAYS TAKE ONE CAPSULE BY MOUTH EVERY DAY FOR 10 DAYS SOLD: 02/07/2020 [facility] Ibuprofen 800 MG Oral Tablet Ibuprofen 800 MG 02/07/2020 12:00:00 AM E DT active Ibuprofen 800 MG eCW1 ([facility]) Cyclobenzaprine hydrochloride 10 MG Oral Tablet Cyclob enzaprine HCl 10 MG Cyclobenzaprine HCl 10 MG 02/07/2020 12:00:00 AM EDT active Cyclobenzaprine HCl 10 MG eCW1 ([facility]) Cyclobenzaprine hydrochloride 10 MG Oral Tablet Cyclob enzaprine HCl 10 MG Cyclobenzaprine HCl 10 MG 02/07/2020 12:00:00 AM EDT suspended Cyclobenzaprine HCl 10 MG eCW1 ([facility]) Cyclobenzaprine hydrochloride 10 MG Oral Tablet CYCLOBENZAPR INE HCL 02/07/2020 12:00:00 AM EDT tablet 10 TAKE ONE TABLET BY MOUTH EVERY DAY BEFORE BEDTIME TAKE ONE TABLET BY MOUTH EVERY DAY BEFORE BEDTIME SOLD: 02/07/2020 [facility] Ibuprofen 800 MG Oral Tablet Ibuprofen 800 MG 02/07/2020 12:00:00 AM E DT active Ibuprofen 800 MG eCW1 ([facility]) Omeprazole 20 MG Delayed Release Oral Capsule Omeprazole 20 MG 02/07/2020 12:00:00 AM EDT suspended Omepr azole 20 MG eCW1 ([facility]) Cyclobenzaprine hydrochloride 10 MG Oral Tablet Cyclob enzaprine HCl 10 MG Cyclobenzaprine HCl 10 MG 02/07/2020 12:00:00 AM EDT suspended Cyclobenzaprine HCl 10 MG eCW1 ([facility]) Omeprazole 20 MG Delayed Release Oral Capsule Omeprazole 20 MG 02/07/2020 12:00:00 AM EDT active Omeprazo le 20 MG eCW1 ([facility]) Omeprazole 20 MG Delayed Release Oral Capsule Omeprazole 20 MG 02/07/2020 12:00:00 AM EDT suspended Omepr azole 20 MG eCW1 ([facility]) Cyclobenzaprine hydrochloride 10 MG Oral Tablet Cyclob enzaprine HCl 10 MG Cyclobenzaprine HCl 10 MG 02/07/2020 12:00:00 AM EDT suspended Cyclobenzaprine HCl 10 MG eCW1 ([facility]) Cyclobenzaprine hydrochloride 10 MG Oral Tablet Cyclob enzaprine HCl 10 MG Cyclobenzaprine HCl 10 MG 02/07/2020 12:00:00 AM EDT suspended Cyclobenzaprine HCl 10 MG eCW1 ([facility]) Cyclobenzaprine hydrochloride 10 MG Oral Tablet Cyclob enzaprine HCl 10 MG Cyclobenzaprine HCl 10 MG 02/07/2020 12:00:00 AM EDT suspended Cyclobenzaprine HCl 10 MG eCW1 ([facility]) Ibuprofen 800 MG Oral Tablet Ibuprofen 800 MG 02/07/2020 12:00:00 AM E DT active Ibuprofen 800 MG eCW1 ([facility]) Ibuprofen 800 MG Oral Tablet Ibuprofen 800 MG 02/07/2020 12:00:00 AM E DT active Ibuprofen 800 MG eCW1 ([facility]) Ibuprofen 800 MG Oral Tablet Ibuprofen 800 MG 02/07/2020 12:00:00 AM E DT active Ibuprofen 800 MG eCW1 ([facility]) Ibuprofen 800 MG Oral Tablet Ibuprofen 800 MG 02/07/2020 12:00:00 AM E DT active Ibuprofen 800 MG eCW1 ([facility]) Ibuprofen 800 MG Oral Tablet Ibuprofen 800 MG 02/07/2020 12:00:00 AM E DT active Ibuprofen 800 MG eCW1 ([facility]) Ibuprofen 800 MG Oral Tablet Ibuprofen 800 MG 02/07/2020 12:00:00 AM E DT active Ibuprofen 800 MG eCW1 ([facility]) Cyclobenzaprine hydrochloride 10 MG Oral Tablet Cyclob enzaprine HCl 10 MG Cyclobenzaprine HCl 10 MG 02/07/2020 12:00:00 AM EDT suspended Cyclobenzaprine HCl 10 MG eCW1 ([facility]) Ibuprofen 800 MG Oral Tablet Ibuprofen 800 MG 02/07/2020 12:00:00 AM E DT active Ibuprofen 800 MG eCW1 ([facility]) Ibuprofen 800 MG Oral Tablet Ibuprofen 800 MG 02/07/2020 12:00:00 AM E DT active Ibuprofen 800 MG eCW1 ([facility]) Ibuprofen 800 MG Oral Tablet Ibuprofen 800 MG 02/07/2020 12:00:00 AM E DT active Ibuprofen 800 MG eCW1 ([facility]) Ibuprofen 800 MG Oral Tablet Ibuprofen 800 MG 02/07/2020 12:00:00 AM E DT active Ibuprofen 800 MG eCW1 ([facility]) Omeprazole 20 MG Delayed Release Oral Capsule Omeprazole 20 MG 02/07/2020 12:00:00 AM EDT suspended Omepr azole 20 MG eCW1 ([facility]) Omeprazole 20 MG Delayed Release Oral Capsule Omeprazole 20 MG 02/07/2020 12:00:00 AM EDT suspended Omepr azole 20 MG eCW1 ([facility]) Ibuprofen 800 MG Oral Tablet Ibuprofen 800 MG 02/07/2020 12:00:00 AM E DT active Ibuprofen 800 MG eCW1 ([facility]) Cyclobenzaprine hydrochloride 10 MG Oral Tablet Cyclob enzaprine HCl 10 MG Cyclobenzaprine HCl 10 MG 02/07/2020 12:00:00 AM EDT active Cyclobenzaprine HCl 10 MG eCW1 ([facility]) Ibuprofen 800 MG Oral Tablet Ibuprofen 800 MG 02/07/2020 12:00:00 AM E DT active Ibuprofen 800 MG eCW1 ([facility]) Ibuprofen 800 MG Oral Tablet Ibuprofen 800 MG 02/07/2020 12:00:00 AM E DT active Ibuprofen 800 MG eCW1 ([facility]) Ibuprofen 800 MG Oral Tablet Ibuprofen 800 MG 02/07/2020 12:00:00 AM E DT active Ibuprofen 800 MG eCW1 ([facility]) Cyclobenzaprine hydrochloride 10 MG Oral Tablet Cyclob enzaprine HCl 10 MG Cyclobenzaprine HCl 10 MG 02/07/2020 12:00:00 AM EDT active Cyclobenzaprine HCl 10 MG eCW1 ([facility]) Cyclobenzaprine hydrochloride 10 MG Oral Tablet Cyclob enzaprine HCl 10 MG Cyclobenzaprine HCl 10 MG 02/07/2020 12:00:00 AM EDT active Cyclobenzaprine HCl 10 MG eCW1 ([facility]) Omeprazole 20 MG Delayed Release Oral Capsule Omeprazole 20 MG 02/07/2020 12:00:00 AM EDT suspended Omepr azole 20 MG eCW1 ([facility]) Ibuprofen 800 MG Oral Tablet Ibuprofen 800 MG 02/07/2020 12:00:00 AM E DT active Ibuprofen 800 MG eCW1 ([facility]) Omeprazole 20 MG Delayed Release Oral Capsule Omeprazole 20 MG 02/07/2020 12:00:00 AM EDT active Omeprazo le 20 MG eCW1 ([facility]) Omeprazole 20 MG Delayed Release Oral Capsule Omeprazole 20 MG 02/07/2020 12:00:00 AM EDT suspended Omepr azole 20 MG eCW1 ([facility]) Ibuprofen 800 MG Oral Tablet Ibuprofen 800 MG 02/07/2020 12:00:00 AM E DT active Ibuprofen 800 MG eCW1 ([facility]) topiramate 200 MG Oral Tablet TOPIRAMATE 01/15/2020 [...] MOUTH AT BEDTIME SOLD: 01/26/2020 [facility] rizatriptan 10 MG Disintegrating Oral [...] Ghi FHP-(DO Not Use) Medigap Part B [id number] Self 0 [id number] POMCO [id number] HU2 [id number] [employer] (pr) Medigap Part B [id number] Family Dependent [id number] [employer] (WC) Workers Compensation [id number] Self B [id number] [employer] (pr) Commercial [id number] Self [id number] UMR F [id number] SELF [id number] Umr Commercial [id number] Self [id number] UMR [facility] [id number] SP [id number] POMCO [id number] SP [id number] [employer] Commercial [id number] Self [id number] UMR [facility] [id number] SP [id number] [employer] Commercial [id number] Self [employer] Commercial [id number] [employer] (pr) Commercial [id number] Family Dependent [employer] Commercial [id number] Family Dependent POM[employer] PPO P [id number] P [id number] POMCO [id number] SP [id number] UMR O [id number] O [id number] UMR F [id number] SELF [id number] UMR F [id number] SELF [id number] UMR F [id number] SELF [id number] Umr Commercial [id number] Self [id number] Medicaid [place] Medigap Part B [id number] Self [id number] Problems, Conditions, and Diagnoses Code Display Name Description Problem Type Effective Dates Data Source(s) M26.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 Le ft temporomandibular joint disorder Problem 01/22/2021 12:00:00 AM EDT [facility] ([facility], ) [id number] Allergic asthma without status asthmatic us Allergic asthma without status asthmaticus Problem 01/21/2021 12:00:00 AM EDT [facility] ([facility], ) F41.9 [id number] Anxiety disorder, unspecified Problem 06/27/2020 12:00:00 AM EDT eCW1 ([facility]) M54.32 25066541 Sciatica of left side Problem 05/20/2020 12: 00:00 AM EST eCW1 ([facility]) F41.9 [id number] Anxiety Problem 04/02/2020 12:00:00 AM ES T eCW1 ([facility]) F32.9 [id number] Depression, unspecified depression type P roblem 03/29/2020 12:00:00 AM EST eCW1 ([facility]) R89.9 [id number] Abnormal laboratory test result Problem 03/04/2020 12:00:00 AM EST eCW1 ([facility]) R89.9 [id number] Abnormal laboratory test Problem 03/04/2020 12:00:00 AM EST eCW1 ([facility]ly [facility]) Surgeries/Procedures Procedure Description Date Indications Data Source(s) OFFICE OUTPATIENT NEW 30 MINUTES 01/22/2021 12:00:00 A M EDT [facility] ([facility], ) OFFICE OUTPATIENT NEW 45 MINUTES 01/22/2021 12:00:00 A M EDT [facility] OFFICE OUTPATIENT VISIT 25 MINUTES 10/09/2020 12:00:00 AM EDT [facility] ([facility]) OFFICE OUTPATIENT VISIT 15 MINUTES 07/10/2020 12:00:00 AM EDT [facility] ([facility]) Results ID Date Data Source [id number] 02/21/2021 11:58:00 AM EST [facility] Name Value Range Interpretation Code Description Data Roberta rce(s) Supporting Document(s) SARS coronavirus 2 RNA [Presence] in Res piratory specimen by NANCI with probe detection NEGATIVE [facility] This lab was ordered by [facility] a nd reported by [facility]. ID Date Data Source [id number] 02/21/2021 11:58:00 AM EST [facility] Name Value Range Interpretation Code Description Data Roberta rce(s) Supporting Document(s) SARS-CoV-2 (COVID 19) NEGATIVE - SARS-CoV-2 (COVID19) [facility] This lab was ordered by [facility] a nd reported by [facility]. ID Date Data Source [id number] 02/18/2021 12:00:00 AM EST [facility] Name Value Range Interpretation Code Description Data Roberta rce(s) Supporting Document(s) SARS-CoV2 Rapid Antigen Negative [facility] This lab was ordered by [facility] and reported by [facility]. ID Date Data Source [id number] 01/16/2021 12:50:00 PM EDT [facility] ([facility]) Name Value Range Interpretation Code Description Data Roberta rce(s) Supporting Document(s) Surgical pathology study Laboratory test result [facility] ([facility]) FINAL DIAGNOSIS Rectal polyp, polypectomy: Tubular adenoma. 01/17/2021 - 1458 CLINICAL DIAGNOSIS Screening colonoscopy, family history of colon cancer 01/16/2021 - 154 GROSS DIAGNOSIS Received in formalin labeled "rectal polyp" consists of one malagon fragment measuring 0.4 x 0.3 x 0.2 cm. All in one. -SV 01/16/2021 - 1540 Signed YUAN DE JESUS MD 01/17/2021 1525 ID Date Data Source [id number] 04/16/2020 01:58:00 PM EST [facility] Name Value Range Interpretation Code Description Data Roberta rce(s) Supporting Document(s) SARS coronavirus [address] [facility] This lab was ordered by [facility] and reported by [facility]. ID Date Data Source Coronavirus 2019 NOSE (Send Out) COVID 04/16/2020 12:00:00 A M EST eCW1 ([facility]) Name Value Range Interpretation Code Description Data Roberta rce(s) Supporting Document(s) This nucleic acid amplification test was developed and its CORONAVIRUS 2019 NOSE eCW1 ([facility]) ID Date Data Source PLZ SPINE LS COMPLETE 03/06/2020 12:00:00 AM EST eCW1 ([facility]) Name Value Range Interpretation Code Description Data Roberta rce(s) Supporting Document(s) PLZ SPINE LS COMPLETE eCW1 ([facility]) ID Date Data Source C REACTIVE PROTEIN QUANTITATIV (At [facility]) 03/06/2020 12:00 :00 AM EST eCW1 ([facility]) Name Value Range Interpretation Code Description Data Roberta rce(s) Supporting Document(s) 0.30 0.00-0.30 C REACTIVE PROTEIN QUANTI TATIV eCW1 ([facility]) ID Date Data Source ERYTHROCYTE SEDIMENTATION RATE 03/06/2020 12:00:00 AM EST eC W1 ([facility]) Name Value Range Interpretation Code Description Data Roberta rce(s) Supporting Document(s) 7 0-20 ERYTHROCYTE SEDIMENTATION RATE eCW1 ([facility]) ID Date Data Source UA URINALYSIS 03/06/2020 12:00:00 AM EST eCW1 ([facility]) Name Value Range Interpretation Code Description Data Roberta rce(s) Supporting Document(s) UA URINALYSIS eCW1 ([facility]) ID Date Data Source Comprehensive Metabolic Profile (CMP) 03/06/2020 12:00:00 AM EST eCW1 ([facility]) Name Value Range Interpretation Code Description Data Roberta rce(s) Supporting Document(s) 90 70-100 GLUCOSE, FASTING eCW1 ([facility]) 0.84 0.55-1.30 CREATININE FOR GFR eCW1 ([facility]) 140 136-145 SODIUM LEVEL eCW1 ([facility]) 18 7-18 BLOOD UREA NITROGEN eCW1 ([facility]) 4.9 3.5-5.1 POTASSIUM SERUM eCW1 ([facility]) > 60.0 >58 GLOMERULAR FILTRATION RATE eCW 1 ([facility]) 27 21-32 CARBON DIOXIDE LEVEL eCW1 ([facility]) 6 7-37 AST/SGOT eCW1 ([facility]) 9.0 8.5-10.1 CALCIUM LEVEL eCW1 ([facility]) 110 98-107 CHLORIDE LEVEL eCW1 ([facility]) 15 12-78 ALT/SGPT eCW1 ([facility]) 3.5 3.2-5.2 ALBUMIN eCW1 ([facility]) 0.4 0.2-1.0 BILIRUBIN,TOTAL eCW1 ([facility]) 7.0 6.4-8.2 TOTAL PROTEIN eCW1 ([facility]) 88 45-117 ALKALINE PHOSPHATASE eCW1 ([facility]) 1.0 1.2-2.2 ALBUMIN/GLOBULIN RATIO eCW1 ([facility]) ID Date Data Source CBC with Differential 03/06/2020 12:00:00 AM EST eCW1 ([facility]) Name Value Range Interpretation Code Description Data Roberta rce(s) Supporting Document(s) 4.18 4.00-5.40 RED BLOOD COUNT eCW1 ([facility]) 40.3 36.0-47.0 HEMATOCRIT eCW1 ([facility]) 5.7 4.0-10.0 WHITE BLOOD COUNT eCW1 ([facility]) 12.5 12.0-15.5 HEMOGLOBIN eCW1 ([facility]) 29.9 27.0-33.0 MEAN CORPUSCULAR HEMOGLOB IN eCW1 ([facility]) 96.4 80.0-96.0 MEAN CORPUSCULAR VOLUME e CW1 ([facility]) 31.0 32.0-36.5 MEAN CORPUSCULAR HGB CONC eCW1 ([facility]) 12.9 11.5-14.5 RED CELL DISTRIBUTION WID TH eCW1 ([facility]) 6.8 0.0-5.0 MONO % eCW1 ([facility]) 53.4 36.0-66.0 NEUTROPHILS % eCW1 ([facility]) 450 150-450 PLATELET COUNT, AUTOMATED eCW1 ([facility]) 32.5 24.0-44.0 LYMPH % eCW1 ([facility]) 3.1 1.5-8.5 NEUTROPHILS # eCW1 ([facility]) 0.9 0.0-1.0 BASO % eCW1 ([facility]) 0.4 0.0-0.8 MONO # eCW1 ([facility]) 1.9 1.5-5.0 LYMPH # eCW1 ([facility]) 5.9 0.0-3.0 EOS % eCW1 ([facility]) 0.3 0.0-0.5 EOS # eCW1 ([facility]) 0.1 0.0-0.2 BASO # eCW1 ([facility]) ID Date Data Source URINE CULTURE 02/22/2020 12:00:00 AM EST eCW1 ([facility]) Name Value Range Interpretation Code Description Data Roberta rce(s) Supporting Document(s) URINE CULTURE eCW1 ([facility]) ID Date Data Source BLOOD CULTURES 02/22/2020 12:00:00 AM EST eCW1 ([facility]) Name Value Range Interpretation Code Description Data Roberta rce(s) Supporting Document(s) BLOOD CULTURES eCW1 ([facility]) ID Date Data Source LYME DISEASE SCRN WITH CONFIRM 02/22/2020 12:00:00 AM EST eC W1 ([facility]) Name Value Range Interpretation Code Description Data Roberta rce(s) Supporting Document(s) <0.80 0.00-0.79 Lyme Disease IgM Ab Quant itati eCW1 ([facility]) <0.91 0.00-0.90 Lyme Disease IgG/IgM Anti tahir eCW1 ([facility]) ID Date Data Source [id number] 02/19/2020 12:00:00 AM EST [facility] Patient Name: RUMA [id number] [facility] Date of : 1975[place] [address] Date of Exam: 02/19/2020PH#: Fax: [phone] EXAM: CHEST (2 VIEW) X-RAYCLINICAL [...] Roberta rce(s) Supporting Document(s) SARS-CoV2 Rapid Antigen [facility] This lab was ordered by [facility] and reported by [facility]. Procedure Social History Code Duration Value Status Description Data Source(s ) Smoking 03/12/2021 12:00:00 AM EST Former Smoker completed Former Smoker eCW1 ([facility]) Smoking 02/27/2021 12:00:00 AM EST Former Smoker completed Former Smoker eCW1 ([facility]) Smoking 01/15/2021 12:00:00 AM EDT Former Smoker completed Former Smoker eCW1 ([facility]) Smoking 01/15/2021 12:00:00 AM EDT Former Smoker completed Former Smoker eCW1 ([facility]) Smoking 01/15/2021 12:00:00 AM EDT Former Smoker completed Former Smoker eCW1 ([facility]) Smoking 12/27/2020 12:00:00 AM EDT Former Smoker completed Former Smoker eCW1 ([facility]) Smoking 12/27/2020 12:00:00 AM EDT Former Smoker completed Former Smoker eCW1 ([facility]) Smoking 12/27/2020 12:00:00 AM EDT Former Smoker completed Former Smoker eCW1 ([facility]) Smoking 12/27/2020 12:00:00 AM EDT Former Smoker completed Former Smoker eCW1 ([facility]) Smoking 12/24/2020 12:00:00 AM EDT Former Smoker completed Former Smoker eCW1 ([facility]) Smoking 12/23/2020 12:00:00 AM EDT Former Smoker completed Former Smoker eCW1 ([facility]) Smoking 06/27/2020 12:00:00 AM EDT Former Smoker completed Former Smoker eCW1 ([facility]) Smoking 06/27/2020 12:00:00 AM EDT Former Smoker completed Former Smoker eCW1 ([facility]) Smoking 06/27/2020 12:00:00 AM EDT Former Smoker completed Former Smoker eCW1 ([facility]) Smoking 06/27/2020 12:00:00 AM EDT Former Smoker completed Former Smoker eCW1 ([facility]) Smoking 06/05/2020 12:00:00 AM EST Patient is a former smoker completed Patient is a former smoker [facility] ([facility]) Smoking 05/20/2020 12:00:00 AM EST Former Smoker completed Former Smoker eCW1 ([facility]) Smoking 05/20/2020 12:00:00 AM EST Former Smoker completed Former Smoker eCW1 ([facility]) Smoking 05/20/2020 12:00:00 AM EST Former Smoker completed Former Smoker eCW1 ([facility]) Smoking 04/16/2020 12:00:00 AM EST Former Smoker completed Former Smoker eCW1 ([facility]) Smoking 04/16/2020 12:00:00 AM EST Former Smoker completed Former Smoker eCW1 ([facility]) Smoking 03/29/2020 12:00:00 AM EST Former Smoker completed Former Smoker eCW1 ([facility]) Smoking 03/29/2020 12:00:00 AM EST Former Smoker completed Former Smoker eCW1 ([facility]) Smoking 03/06/2020 12:00:00 AM EST Former Smoker completed Former Smoker eCW1 ([facility]) Smoking 02/22/2020 12:00:00 AM EST Former Smoker completed Former Smoker eCW1 ([facility]) Smoking 02/22/2020 12:00:00 AM EST Former Smoker completed Former Smoker eCW1 ([facility]) Smoking 02/07/2020 12:00:00 AM EDT Former Smoker completed Former Smoker eCW1 ([facility]) Vital Signs ID Date Data Source UNK Name Value Range Interpretation Code Description Data Source(s) Body weight 213.4 [lb_av] 213.4 [lb_av] eCW1 ([facility]) Body weight 96.8 kg 96.8 kg W ([facility]) Body height [in_i] W1 ([facility]) Body mass index (BMI) [Ratio] 36.63 kg/m2 36.63 kg/m2 [facility] ([facility]) Heart rate 81 /min 81 /min eCW1 ([facility]) Respiratory rate 18 /min 18 /min eCW1 ([facility]) Body temperature 97.3 [degF] 97.3 [degF] eCW1 ( [facility]) Systolic blood pressure 120 mm[Hg] 120 mm[Hg] e CW1 ([facility]ly [facility]) Diastolic blood pressure 82 mm[Hg] 82 mm[Hg] eCW1 ([facility]ly [facility]) Body mass index (BMI) [Ratio] 36.9 kg/m2 36.9 k g/m2 [facility] ([facility], ) Body height 64 [in_i] 64 [in_i] [facility] ([facility]) 5'4" Body weight 215.00 [lb_av] 215.00 [lb_av] MEDEN T ([facility]) [place] body weight 120 [lb_av] 120 [lb_av] MEDEN T ([facility]) Systolic blood pressure 140 mm[Hg] 140 mm[Hg] M EDENT ([facility]) Diastolic blood pressure 84 mm[Hg] 84 mm[Hg] [facility] ([facility]) Body weight 97.524 kg 97.524 kg [facility] ([facility]) Body surface area Derived from formula 2.02 m2 2.02 m2 [facility] ([facility]) Systolic blood pressure 122 mm[Hg] 122 mm[facility]Hg[facility] Diastolic blood pressure 70 mm[Hg] 70 mm[Hg] [facility] ([facility]) Heart rate 82 /min 82 /min [facility] ([facility]) Oxygen saturation in Arterial blood by Pulse oximetry 98 % 98 % [facility] ([facility]) Body height 64 [in_i] 64 [in_i] [facility] ([facility]) 5'4" [place] body weight 120 [lb_av] 120 [lb_av] MEDEN T ([facility]) Body weight 97.070 kg 97.070 kg [facility] ([facility]) Body surface area Derived from formula 2.01 m2 2.01 m2 MEDENT ([facility]) Body weight 214.00 [lb_av] 214.00 [lb_av] MEDEN T ([facility]) Body mass index (BMI) [Ratio] 36.7 kg/m2 36.7 k g/m2 MEDENT ([facility]) Body weight 213.4 [lb_av] 213.4 [lb_av] eCW1 ([facility]ly [facility]) Body mass index (BMI) [Ratio] 36.63 kg/m2 36.63 kg/m2 W1 ([facility]ly [facility]) Body weight 96.8 kg 96.8 kg W1 ([facility]) Body height [in_i] eCW1 ([facility]) Heart rate 80 /min 80 /min eCW1 ([facility]) Respiratory rate 18 /min 18 /min eCW1 ([facility]) Body temperature 98.5 [degF] 98.5 [degF] eCW1 ( [facility]) Systolic blood pressure 142 mm[Hg] 142 mm[Hg] e CW1 ([facility]) Diastolic blood pressure 82 mm[Hg] 82 mm[Hg] eCW1 ([facility]) Body weight 204 [lb_av] 204 [lb_av] eCW1 ([facility]) Body weight 92.53 kg 92.53 kg eCW1 ([facility]) Body height [in_i] eCW1 ([facility]) Respiratory rate 18 /min 18 /min eCW1 ([facility]) Body mass index (BMI) [Ratio] 35.01 kg/m2 35.01 kg/m2 eCW1 ([facility]) Heart rate 99 /min 99 /min eCW1 ([facility]) Body temperature 97.9 [degF] 97.9 [degF] eCW1 ( [facility]) Systolic blood pressure 128 mm[Hg] 128 mm[Hg] e CW1 ([facility]) Diastolic blood pressure 76 mm[Hg] 76 mm[Hg] eCW1 ([facility]) Body weight 207.4 [lb_av] 207.4 [lb_av] eCW1 ([facility]ly [facility]) Body weight 94.08 kg 94.08 kg eCW1 ([facility]) Body height [in_i] eCW1 ([facility]) Body mass index (BMI) [Ratio] 35.60 kg/m2 35.60 kg/m2 eCW1 ([facility]) Heart rate 84 /min 84 /min eCW1 ([facility]) Respiratory rate 18 /min 18 /min eCW1 ([facility]) Body temperature 99.1 [degF] 99.1 [degF] eCW1 ( [facility]) Systolic blood pressure 132 mm[Hg] 132 mm[Hg] e CW1 ([facility]) Diastolic blood pressure 76 mm[Hg] 76 mm[Hg] eCW1 ([facility]) Body height 64 [in_i] 64 [in_i] [facility] 5'4" Diastolic blood pressure 84 mm[Hg] 84 mm[Hg] MEDENT ([facility], ) Body weight 202.00 [lb_av] 202.00 [lb_av] MEDEN T ([facility], ) Body mass index (BMI) [Ratio] 34.7 kg/m2 34.7 k g/m2 [facility] [place] body weight 120 [lb_av] 120 [lb_av] MEDEN T ([facility] ) Body weight 91.627 kg 91.627 [facility] Body surface area Derived from formula 1.96 m2 1.96 m2 [facility], ) Systolic blood pressure 124 mm[Hg] 124 mm[Hg] M EDENT ([facility], ) Systolic blood pressure 110 mm[Hg] 110 mm[Hg] M EDENT ([facility], ) Diastolic blood pressure 80 mm[Hg] 80 mm[Hg] MEDENT ([facility]) Heart rate 76 /min 76 /min MEDENT ([facility]) Respiratory rate 16 /min 16 /min MEDENT ( [facility] ) Body weight 187 [lb_av] 187 [lb_av] eCW1 ([facility]) Body height [in_i] eCW1 ([facility]) Body mass index (BMI) [Ratio] 32.09 kg/m2 32.09 kg/m2 eCW1 ([facility]) Heart rate 82 /min 82 /min eCW1 ([facility]) Respiratory rate 18 /min 18 /min eCW1 ([facility]) Body temperature 99 [degF] 99 [degF] eCW1 ([facility]) Systolic blood pressure 128 mm[Hg] 128 mm[Hg] e CW1 ([facility]) Diastolic blood pressure 80 mm[Hg] 80 mm[Hg] eCW1 ([facility]) Systolic blood pressure 118 mm[Hg] 118 mm[Hg] M EDENT ([facility]) Diastolic blood pressure 76 mm[Hg] 76 mm[Hg] MEDENT ([facility]) Body height 63.5 [in_i] 63.5 [in_i] MEDENT ([facility] 5'3.50" Body weight 183.00 [lb_av] 183.00 [lb_av] MEDEN T ([facility]) Body mass index (BMI) [Ratio] 31.9 kg/m2 31.9 k g/m2 MEDENT ([facility]) Body surface area Derived from formula 1.87 m2 1.87 m2 MEDENT ([facility]) Body weight 179 [lb_av] 179 [lb_av] eCW1 ([facility]) Body height [in_i] eCW1 ([facility]) Body mass index (BMI) [Ratio] 30.72 kg/m2 30.72 kg/m2 eCW1 ([facility]) Heart rate 110 /min 110 /min eCW1 ([facility]) Respiratory rate 18 /min 18 /min eCW1 ([facility]) Body temperature 99.1 [degF] 99.1 [degF] eCW1 ( [facility]) Systolic blood pressure 122 mm[Hg] 122 mm[Hg] e CW1 ([facility]) Diastolic blood pressure 78 mm[Hg] 78 mm[Hg] eCW1 ([facility]) Body weight 181 [lb_av] 181 [lb_av] eCW1 ([facility]) Body height [in_i] eCW1 ([facility]) Body temperature 98.8 [degF] 98.8 [degF] eCW1 ( [facility]) Systolic blood pressure 114 mm[Hg] 114 mm[Hg] e CW1 ([facility]) Diastolic blood pressure 76 mm[Hg] 76 mm[Hg] eCW1 ([facility]) Body mass index (BMI) [Ratio] 31.07 kg/m2 31.07 kg/m2 eCW1 ([facility]) Heart rate 95 /min 95 /min eCW1 ([facility]) Respiratory rate 16 /min 16 /min eCW1 ([facility]) Body weight 182 [lb_av] 182 [lb_av] eCW1 ([facility]) Body height [in_i] eCW1 ([facility]) Body mass index (BMI) [Ratio] 31.24 kg/m2 31.24 kg/m2 eCW1 ([facility]) Heart rate 103 /min 103 /min eCW1 ([facility]) Respiratory rate 18 /min 18 /min eCW1 ([facility]) Body temperature 98.2 [degF] 98.2 [degF] eCW1 ( [facility]) Systolic blood pressure 120 mm[Hg] 120 mm[Hg] e CW1 ([facility]) Diastolic blood pressure 74 mm[Hg] 74 mm[Hg] eCW1 ([facility]) Body weight 181 [lb_av] 181 [lb_av] eCW1 ([facility]) Body height [in_i] eCW1 ([facility]) Body mass index (BMI) [Ratio] 31.07 kg/m2 31.07 kg/m2 eCW1 ([facility]) Heart rate 97 /min 97 /min eCW1 ([facility]) Respiratory rate 18 /min 18 /min eCW1 ([facility]) Body temperature 99.2 [degF] 99.2 [degF] eCW1 ( [facility]) Systolic blood pressure 118 mm[Hg] 118 mm[Hg] e CW1 ([facility]) Diastolic blood pressure 78 mm[Hg] 78 mm[Hg] eCW1 ([facility]) Body weight 182 [lb_av] 182 [lb_av] eCW1 ([facility]) Body height [in_i] eCW1 ([facility]) Body mass index (BMI) [Ratio] 31.24 kg/m2 31.24 kg/m2 eCW1 ([facility]) Heart rate 90 /min 90 /min eCW1 ([facility]) Respiratory rate 18 /min 18 /min eCW1 ([facility]) Body temperature 99.4 [degF] 99.4 [degF] eCW1 ( [facility]) Systolic blood pressure 136 mm[Hg] 136 mm[Hg] e CW1 ([facility]) Diastolic blood pressure 84 mm[Hg] 84 mm[Hg] eCW1 ([facility]) Patient Treatment Plan of Care Planned Activity Planned Date Details Description Data Source (s) Prednisone 10 MG Oral Tablet 02/27/2021 12:00:00 AM EST eCW1 ([facility]) 200 ACTUAT Albuterol 0.09 MG/ACTUAT Metered Dose Inhal er [ProAir] 02/27/2021 12:00:00 AM EST eCW1 ([facility]) Prednisone 10 MG Oral Tablet 02/27/2021 12:00:00 AM EST eCW1 ([facility]) 200 ACTUAT Albuterol 0.09 MG/ACTUAT Metered Dose Inhal er [ProAir] 02/27/2021 12:00:00 AM EST eCW1 ([facility]) Prednisone 10 MG Oral Tablet 12/27/2020 12:00:00 AM EDT eCW1 ([facility]) Prednisone 10 MG Oral Tablet 12/27/2020 12:00:00 AM EDT eCW1 ([facility]) Prednisone 10 MG Oral Tablet 12/27/2020 12:00:00 AM EDT eCW1 ([facility]) Prednisone 10 MG Oral Tablet 12/27/2020 12:00:00 AM EDT eCW1 ([facility]) Fluconazole 150 MG Oral Tablet [Diflucan] 12/24/2020 12:00:00 AM ED T eCW1 ([facility]) Amoxicillin 250 MG Oral Capsule 12/24/2020 12:00:00 AM EDT eCW1 ([facility]) Ciprofloxacin 3 MG/ML / Dexamethasone 1 MG/ML [employer] 12/24/2020 12:00:00 AM EDT eCW1 ([facility]) Cyclobenzaprine hydrochloride 10 MG Oral Tablet 05/20/2020 12:00:00 AM EST eCW1 ([facility]) Cyclobenzaprine hydrochloride 10 MG Oral Tablet 05/20/2020 12:00:00 AM EST eCW1 ([facility]) Cyclobenzaprine hydrochloride 10 MG Oral Tablet 05/20/2020 12:00:00 AM EST eCW1 ([facility]) Cyclobenzaprine hydrochloride 10 MG Oral Tablet 05/20/2020 12:00:00 AM EST eCW1 ([facility]) Cyclobenzaprine hydrochloride 10 MG Oral Tablet 05/20/2020 12:00:00 AM EST eCW1 ([facility]) Prednisone 20 MG Oral Tablet 05/20/2020 12:00:00 AM EST eCW1 ([facility]) Prednisone 20 MG Oral Tablet 05/20/2020 12:00:00 AM EST eCW1 ([facility]) Cyclobenzaprine hydrochloride 10 MG Oral Tablet 05/20/2020 12:00:00 AM EST eCW1 ([facility]) Prednisone 20 MG Oral Tablet 05/20/2020 12:00:00 AM EST eCW1 ([facility]) Cyclobenzaprine hydrochloride 10 MG Oral Tablet 05/20/2020 12:00:00 AM EST eCW1 ([facility]) Escitalopram 10 MG Oral Tablet [Lexapro] 03/29/2020 12:00:00 AM EST eCW1 ([facility]) Escitalopram 10 MG Oral Tablet [Lexapro] 03/29/2020 12:00:00 AM EST eCW1 ([facility]) Escitalopram 10 MG Oral Tablet [Lexapro] 03/29/2020 12:00:00 AM EST eCW1 ([facility]) Escitalopram 10 MG Oral Tablet [Lexapro] 03/29/2020 12:00:00 AM EST eCW1 ([facility]) Escitalopram 10 MG Oral Tablet [Lexapro] 03/29/2020 12:00:00 AM EST eCW1 ([facility]) Escitalopram 10 MG Oral Tablet [Lexapro] 03/29/2020 12:00:00 AM EST eCW1 ([facility]) Escitalopram 10 MG Oral Tablet [Lexapro] 03/29/2020 12:00:00 AM EST eCW1 ([facility]) Escitalopram 10 MG Oral Tablet [Lexapro] 03/29/2020 12:00:00 AM EST eCW1 ([facility]) Ciprofloxacin 500 MG Oral Tablet [Cipro] 02/22/2020 12:00:00 AM EST eCW1 ([facility]) Ciprofloxacin 500 MG Oral Tablet [Cipro] 02/22/2020 12:00:00 AM EST eCW1 ([facility]) Cyclobenzaprine hydrochloride 10 MG Oral Tablet 02/07/2020 12:00:00 AM EDT eCW1 ([facility]) Omeprazole 20 MG Delayed Release Oral Capsule 02/07/2020 12:00:00 A M EDT eCW1 ([facility]) Cyclobenzaprine hydrochloride 10 MG Oral Tablet 02/07/2020 12:00:00 AM EDT eCW1 ([facility]) Ibuprofen 800 MG Oral Tablet 02/07/2020 12:00:00 AM EDT eCW1 ([facility])
[2021-03-17] MEDS ORDERED: APIXABAN 5 MG TAB (ELIQUIS) PO ONE (11:45)
[2021-03-17] MEDS ORDERED: ELIQ5TAB PO (11:48)
[2021-03-17 11:57] VITALS: BP 140/93
[2021-03-17 12:14] LABS: HEMOGLOBIN 13.5 g/dl (12.0-15.5); MEAN CORPUSCULAR HEMOGLOBIN 30.5 pg (27.0-33.0); MEAN CORPUSCULAR HGB CONC 32.1 g/dl (32.0-36.5); MEAN CORPUSCULAR VOLUME 94.8 fl (80.0-96.0); PLATELET COUNT, AUTOMATED 230 10^3/uL (150-450); RED BLOOD COUNT 4.43 10^6/uL (4.00-5.40); WHITE BLOOD COUNT 9.1 10^3/uL (4.0-10.0)
[2021-03-17 12:32] LABS: INR 0.98; PROTHROMBIN TIME 13.4 SECONDS (12.7-14.5)
[2021-03-17 12:33] LABS: PARTIAL THROMBOPLASTIN TIME 26.3 SECONDS (25.9-37.0)
== END 2021-03-17 12:45 | disposition home or self-care (01) ==
LOC: M ED 07:37
DX: I82.811 Embolism and thrombosis of superficial veins of right lower extremity (principal); G43.909 Migraine, unspecified, not intractable, without status migrainosus; Z79.899 Other long term (current) drug therapy; Z79.82 Long term (current) use of aspirin; Z79.01 Long term (current) use of anticoagulants; Z88.8 Allergy status to other drugs, medicaments and biological substances; Z87.891 Personal history of nicotine dependence

== ENCOUNTER 2021-03-28 07:00 | Outpatient (RCR) | payer OTHER ==
[~2021-03-28 07:00] MED LIST changes: +ELIQ5TAB PO
== END 2021-04-11 ==
LOC: M PT 07:00
PROVIDERS: ATTEND Otolaryngology
DX: M26.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, unspecified (principal)

== ENCOUNTER → 2021-10-06 | Outpatient (CLI) | payer OTHER ==
[~2021-10-06] MED LIST changes: -D31000TA2 PO; +VITA100093 PO
[2021-10-06 15:59] LABS: HEMATOCRIT 43.4 % (36.0-47.0); MEAN CORPUSCULAR HEMOGLOBIN 30.6 pg (27.0-33.0); MEAN CORPUSCULAR HGB CONC 32.3 g/dl (32.0-36.5); MEAN CORPUSCULAR VOLUME 94.8 fl (80.0-96.0); PLATELET COUNT, AUTOMATED 276 10^3/uL (150-450); RED BLOOD COUNT 4.58 10^6/uL (4.00-5.40); WHITE BLOOD COUNT 9.4 10^3/uL (4.0-10.0)
[2021-10-06 16:28] LABS: ALBUMIN 3.6 GM/DL (3.2-5.2); ALT/SGPT 19 U/L (12-78); BILIRUBIN,TOTAL 0.4 MG/DL (0.2-1.0); BLOOD UREA NITROGEN 21 MG/DL (7-18); CALCIUM LEVEL 9.5 MG/DL (8.5-10.1); CARBON DIOXIDE LEVEL 28 MEQ/L (21-32); CHLORIDE LEVEL 109 MEQ/L (98-107); CHOLESTEROL LEVEL 225 MG/DL (<200); CHOLESTEROL RISK RATIO 2.848 (<5); CREATININE FOR GFR 0.87 MG/DL (0.55-1.30); GLOMERULAR FILTRATION RATE > 60.0 (>58); GLUCOSE, FASTING 88 MG/DL (70-100); HDL CHOLESTEROL 79 MG/DL (>40); LDL CHOLESTEROL 128 MG/DL (<100); NON-HDL-C 146 MG/DL; POTASSIUM SERUM 4.7 MEQ/L (3.5-5.1); SODIUM LEVEL 142 MEQ/L (136-145); TOTAL PROTEIN 7.5 GM/DL (6.4-8.2); TRIGLYCERIDES LEVEL 92 MG/DL (<150)
[2021-10-06 16:43] LABS: TOTAL 25(OH) VITAMIN D 42.4 NG/ML (30.0-100.0)
== END ==
LOC: M PLALAB 14:03
PROVIDERS: ATTEND Nurse Practitioner Adult Health
DX: Z00.00 Encounter for general adult medical examination without abnormal findings (principal); Z13.21 Encounter for screening for nutritional disorder

== ENCOUNTER → 2021-11-03 | Outpatient (CLI) | payer OTHER | LOC: M RAD 11:50 | PROVIDERS: ATTEND Physician Assistant Medical | DX: S92.515A Nondisplaced fracture of proximal phalanx of left lesser toe(s), initial encounter for closed fracture (principal) ==

== ENCOUNTER → 2021-11-17 | Outpatient (CLI) | payer OTHER | LOC: M WHC 07:55 | PROVIDERS: ATTEND Nurse Practitioner Adult Health | DX: Z12.31 Encounter for screening mammogram for malignant neoplasm of breast (principal); N63.23 Unspecified lump in the left breast, lower outer quadrant ==

== ENCOUNTER → 2021-11-27 | Outpatient (CLI) | payer OTHER | LOC: M WHC 08:26 | PROVIDERS: ATTEND Nurse Practitioner Adult Health | DX: R92.8 Other abnormal and inconclusive findings on diagnostic imaging of breast (principal) | CPT/HCPCS: 76642; 77065; G0279 ==

== ENCOUNTER → 2022-02-11 | Outpatient (CLI) | payer OTHER ==
[~2022-02-11] MED LIST changes: -MAXA10TA14 PO; +RIZA10TA64 PO
== END ==
LOC: M ONCR 13:02
PROVIDERS: ATTEND General Practice
DX: C50.412 Malignant neoplasm of upper-outer quadrant of left female breast (principal); D68.51 Activated protein C resistance; Z86.718 Personal history of other venous thrombosis and embolism; Z80.52 Family history of malignant neoplasm of bladder; Z80.3 Family history of malignant neoplasm of breast; Z80.0 Family history of malignant neoplasm of digestive organs; Z88.6 Allergy status to analgesic agent; Z79.899 Other long term (current) drug therapy

== ENCOUNTER 2022-03-11 15:10 | Outpatient (RCR) | payer OTHER ==
[~2022-03-11 15:10] MED LIST changes: +TAMO20TA8 PO
== END 2022-03-11 23:59 | disposition home or self-care (01) ==
LOC: M ONCR 15:10
PROVIDERS: ATTEND General Practice
DX: C50.412 Malignant neoplasm of upper-outer quadrant of left female breast (principal)

== ENCOUNTER 2022-04-07 08:45 | Outpatient (RCR) | payer OTHER | END 2022-04-11 | LOC: M ONCR 08:45 | PROVIDERS: ATTEND General Practice | DX: C50.412 Malignant neoplasm of upper-outer quadrant of left female breast (principal) ==

== ENCOUNTER → 2022-05-27 | Outpatient (CLI) | payer OTHER | LOC: M PLAIMG 11:34 | PROVIDERS: ATTEND Physician Assistant | DX: J01.90 Acute sinusitis, unspecified (principal) ==

== ENCOUNTER → 2022-05-28 | Outpatient (REF) | payer OTHER | LOC: M SFHCPLAZ 10:05 | PROVIDERS: ATTEND Physician Assistant | DX: J01.90 Acute sinusitis, unspecified (principal) ==

== ENCOUNTER → 2022-06-12 | Outpatient (REF) | payer OTHER | LOC: M SFHCPLAZ 16:44 | PROVIDERS: ATTEND Physician Assistant | DX: J02.9 Acute pharyngitis, unspecified (principal); R68.83 Chills (without fever) ==

== ENCOUNTER → 2022-06-15 | Outpatient (REF) | payer OTHER | LOC: M PLALAB 09:21 | PROVIDERS: ATTEND Nurse Practitioner Family | DX: Z12.4 Encounter for screening for malignant neoplasm of cervix (principal) | CPT/HCPCS: 87624; G0123 ==

== ENCOUNTER → 2022-07-01 | Outpatient (CLI) | payer OTHER | LOC: M RAD 14:37 | PROVIDERS: ATTEND Physician Assistant | DX: J18.9 Pneumonia, unspecified organism (principal) ==

== ENCOUNTER → 2022-09-22 | Outpatient (CLI) | payer OTHER | LOC: M ONCR 14:01 | PROVIDERS: ATTEND General Practice | DX: Z01.89 Encounter for other specified special examinations (principal) ==

== ENCOUNTER → 2022-10-02 | Outpatient (CLI) | payer OTHER ==
[~2022-10-02] MED LIST changes: +VENL75CA47 PO
== END ==
LOC: M ONCR 08:54
PROVIDERS: ATTEND General Practice
DX: C50.412 Malignant neoplasm of upper-outer quadrant of left female breast (principal); R23.2 Flushing; R20.8 Other disturbances of skin sensation; Z71.2 Person consulting for explanation of examination or test findings; Z79.01 Long term (current) use of anticoagulants; Z79.810 Long term (current) use of selective estrogen receptor modulators (SERMs); Z79.899 Other long term (current) drug therapy; Z88.6 Allergy status to analgesic agent; Z92.3 Personal history of irradiation; Z98.890 Other specified postprocedural states

== ENCOUNTER → 2023-02-23 | Outpatient (CLI) | payer OTHER | LOC: M PLAIMG 12:57 | PROVIDERS: ATTEND Nurse Practitioner Adult Health | DX: M25.511 Pain in right shoulder (principal) ==

== ENCOUNTER → 2023-05-07 | Outpatient (CLI) | payer OTHER ==
[~2023-05-07] MED LIST changes: +OXYB-54 PO
== END ==
LOC: M ONCR 11:25
PROVIDERS: ATTEND General Practice
DX: C50.412 Malignant neoplasm of upper-outer quadrant of left female breast (principal); N95.1 Menopausal and female climacteric states; R68.2 Dry mouth, unspecified; Z79.01 Long term (current) use of anticoagulants; Z79.899 Other long term (current) drug therapy; Z88.6 Allergy status to analgesic agent

== ENCOUNTER → 2023-07-02 | Outpatient (REF) | payer OTHER ==
[~2023-07-02] MED LIST changes: +ONDA4TAB6 PO
== END ==
LOC: M LAB REF 11:51
PROVIDERS: ATTEND Physician Assistant
DX: J02.9 Acute pharyngitis, unspecified (principal)

== ENCOUNTER → 2023-10-18 | Outpatient (REF) | payer OTHER ==
[~2023-10-18] MED LIST changes: +ONDA-282 PO; -ONDA4TAB6 PO
== END ==
LOC: M SFHCPLAZ 17:30
PROVIDERS: ATTEND Physician Assistant Medical
DX: R30.0 Dysuria (principal)

== ENCOUNTER → 2023-10-21 | Outpatient (REF) | payer OTHER | LOC: M SFHCPLAZ 17:12 | PROVIDERS: ATTEND Internal Medicine Hematology | DX: N39.0 Urinary tract infection, site not specified (principal) ==

== ENCOUNTER 2023-10-22 10:08 | Emergency (ER) | payer OTHER ==
[~2023-10-22] VITALS: Ht 162.6 cm; Wt 109.7 kg
[2023-10-22 11:27] LABS: BASO % 0.5 % (0.0-1.0); EOS # 0.6 10^3/uL (0.0-0.5); EOS % 7.5 % (0.0-3.0); HEMATOCRIT 43.1 % (36.0-47.0); HEMOGLOBIN 14.2 g/dl (12.0-15.5); LYMPH # 1.7 10^3/uL (1.5-5.0); LYMPH % 21.4 % (24.0-44.0); MEAN CORPUSCULAR HEMOGLOBIN 30.3 pg (27.0-33.0); MEAN CORPUSCULAR HGB CONC 32.9 g/dl (32.0-36.5); MEAN CORPUSCULAR VOLUME 92.1 fl (80.0-96.0); MONO # 0.5 10^3/uL (0.0-0.8); MONO % 6.5 % (2.0-8.0); NEUTROPHILS % 63.7 % (36.0-66.0); PLATELET COUNT, AUTOMATED 256 10^3/uL (150-450); RED BLOOD COUNT 4.68 10^6/uL (4.00-5.40); WHITE BLOOD COUNT 7.8 10^3/uL (4.0-10.0)
[2023-10-22 11:42] LABS: INR 1.03; PARTIAL THROMBOPLASTIN TIME 24.9 SECONDS (24.8-34.2); PROTHROMBIN TIME 13.2 SECONDS (12.5-14.5)
[2023-10-22 11:46] LABS: ETHYL ALCOHOL (ETHANOL) < 0.003 % (0.000-0.010)
[2023-10-22 11:48] LABS: ALBUMIN 3.7 G/DL (3.2-5.2); ALKALINE PHOSPHATASE 79 U/L (46-116); ALT/SGPT 25 U/L (7.0-40); AST/SGOT 14 U/L (<34); BILIRUBIN,DIRECT < 0.1 MG/DL (<0.4); BILIRUBIN,TOTAL 0.2 MG/DL (0.3-1.2); BLOOD UREA NITROGEN 19 MG/DL (9-23); CARBON DIOXIDE LEVEL 29 MMOL/L (20-31); CHLORIDE LEVEL 105 MMOL/L (98-107); CREATININE FOR GFR 0.71 MG/DL (0.55-1.30); GLOMERULAR FILTRATION RATE > 60.0 (>58); GLUCOSE, FASTING 118 MG/DL (60-100); POTASSIUM SERUM 3.9 MMOL/L (3.5-5.1); SODIUM LEVEL 139 MMOL/L (136-145); TOTAL PROTEIN 7.1 G/DL (5.7-8.2)
[2023-10-22 13:54] VITALS: BP 138/67; TEMP 98.5; O2SAT 98
[2023-10-22 14:03] LABS: AMPHETAMINES LEVEL URINE NEGATIVE (NEGATIVE); BARBITURATES URINE NEGATIVE (NEGATIVE); BENZODIAZEPINES URINE NEGATIVE (NEGATIVE); CANNABINOIDS URINE NEGATIVE (NEGATIVE); COCAINE METABOLITE URINE NEGATIVE (NEGATIVE); METHADONE URINE NEGATIVE (NEGATIVE); OPIATES URINE NEGATIVE (NEGATIVE); PHENCYCLIDINE URINE NEGATIVE (NEGATIVE)
== END 2023-10-22 13:58 | disposition home or self-care (01) ==
LOC: M ED 10:08
DX: S06.0X0A Concussion without loss of consciousness, initial encounter (principal); S00.83XA Contusion of other part of head, initial encounter; Y92.9 Unspecified place or not applicable; Y93.9 Activity, unspecified; Y99.9 Unspecified external cause status; F32.A Depression, unspecified; Z88.5 Allergy status to narcotic agent; Z79.899 Other long term (current) drug therapy

== ENCOUNTER → 2024-01-17 | Outpatient (REF) | payer OTHER | LOC: M SFHCPLAZ 13:00 | PROVIDERS: ATTEND Physician Assistant Medical | DX: J06.9 Acute upper respiratory infection, unspecified (principal) ==

== ENCOUNTER 2024-04-04 14:59 | Emergency (ER) | payer OTHER ==
[~2024-04-04] VITALS: Ht 162.6 cm; Wt 110.0 kg
[~2024-04-04 14:59] MED LIST changes: +VALS40TA9
[2024-04-04 15:02] VITALS: BP 128/80; TEMP 98.7; O2SAT 96
[2024-04-04] MEDS: IPRATROPIUM 0.5MG/ALBUTEROL 2.5MG INH SOL UD 3ML (DUONEB) NEB ONE (16:52)
[2024-04-04] MEDS ORDERED: ALB2.5NEB NEB (17:22)
[2024-04-04] MEDS ORDERED: AZIT-12 PO (17:22)
[2024-04-07] MEDS ORDERED: TAMO20TA8 PO (14:45)
== END 2024-04-04 17:27 | disposition home or self-care (01) ==
LOC: M ED 14:59
DX: J20.9 Acute bronchitis, unspecified (principal); J01.90 Acute sinusitis, unspecified; Z85.3 Personal history of malignant neoplasm of breast; Z86.718 Personal history of other venous thrombosis and embolism; Z79.899 Other long term (current) drug therapy; Z88.6 Allergy status to analgesic agent